=== PATIENT | female | born 1945 | race African-American/Black ===

== ENCOUNTER 2017-08-29 10:20 | Inpatient (IN) | payer MEDICARE ==
[~2017-08-29] VITALS: Ht 162.6 cm; Wt 101.9 kg
[~2017-08-29 10:20] MED LIST: ASPI81TA82 PO; CALC600T34 PO; ESTR42.5V PV; FISH1000 PO; LEVEMIR SQ; LISI-372 PO; NOVO7030P2 SQ; TOPR25TA2 PO; VITA10002 PO
[2017-08-29 10:41] VITALS: BP 181/87; PULSE 74; RESP 18; TEMP 99.6; O2SAT 97
[2017-08-29] MEDS ORDERED: LOSA100T PO (10:48)
[2017-08-29] MEDS ORDERED: NOVOLOGP2 SQ (10:48)
[2017-08-29] MEDS ORDERED: HYDR25TA5 PO (10:48)
[2017-08-29] MEDS ORDERED: LEVEMIR SQ (10:48)
[2017-08-29] MEDS ORDERED: CLON0.1T PO (10:48)
[2017-08-29] MEDS ORDERED: LISI40TA PO (10:48)
[2017-08-29] MEDS ORDERED: METO100T PO (10:48)
[2017-08-29 10:49] VITALS: RESP 16; O2SAT 97
[2017-08-29] MEDS ORDERED: SODIUM CHLORIDE 0.9% FLUSH 10 ML FLUSH IV FLUSH PRN ×2 (11:00→14:00)
[2017-08-29] MEDS ORDERED: MORPHINE SULFATE 4 MG/ML INJ IV PUSH ONE (11:00)
[2017-08-29] MEDS ORDERED: LIDOCAINE HCL 1% PF 30 ML VIAL INFIL ONE (11:00)
[2017-08-29] MEDS ORDERED: TIMO0.255 EACH EYE (11:33)
[2017-08-29] MEDS ORDERED: CALC0.25 PO (11:33)
[2017-08-29] MEDS ORDERED: AMLO10TA2 PO (11:33)
[2017-08-29] MEDS ORDERED: HYDR-3799 PO (11:33)
--- NOTE | 2017-08-29 11:33 | RADRPT ---
EXAM DATE/TIME: 08/29/2017 11:01 [facility] COMPARISON: No previous studies available for comparison. INDICATIONS : Pain without trauma. MEDICAL HISTORY : None. SURGICAL HISTORY : None. ENCOUNTER: Initial ACUITY: 1 day PAIN SCORE: 4/10 LOCATION: Left knee. FINDINGS: 4 views left knee. Moderate sized tricompartmental osteophytes. Alignment within normal limits. No ev idence of fracture. Mild lateral compartment narrowing. Large joint effusion. CONCLUSION: 1. Moderate severity osteoarthritic findings with mild lateral compartment narrowing. 2. Large joint effusion. 3. No fracture identified. Montana Meade MD on August 29, 2017 at 11:29 Board Certified Radiologist. This report was verified electronically.
[2017-08-29 11:48] LABS: AUTOMATED NEUTROPHIL # 9.8 TH/MM3 (1.8-7.7); BASOPHIL % 0.3 % (0.0-2.0); EOSINOPHIL # 0.1 TH/MM3 (0-0.4); EOSINOPHIL % 0.6 % (0.0-4.0); HEMATOCRIT 35.8 % (35.0-46.0); HEMOGLOBIN 11.6 GM/DL (11.6-15.3); LYMPHOCYTE # 0.9 TH/MM3 (1.0-4.8); MEAN CELL VOLUME 91.6 FL (80.0-100.0); MEAN CORPUSCULAR HEMOGLOBIN 29.6 PG (27.0-34.0); MEAN CORPUSCULAR HGB CONC 32.3 % (32.0-36.0); MEAN PLATELET VOLUME 8.4 FL (7.0-11.0); MONO % 4.7 % (0.0-8.0); MONOCYTE # 0.5 TH/MM3 (0-0.9); NEUT % 86.4 % (16.0-70.0); PLATELET COUNT 235 TH/MM3 (150-450); WHITE BLOOD COUNT 11.4 TH/MM3 (4.0-11.0)
[2017-08-29 12:07] LABS: ALBUMIN 3.2 GM/DL (3.4-5.0); AST (GOT) 18 U/L (15-37); BICARBONATE 26.3 MEQ/L (21.0-32.0); BLOOD UREA NITROGEN 73 MG/DL (7-18); CALCIUM 9.7 MG/DL (8.5-10.1); CHLORIDE 110 MEQ/L (98-107); CREATININE 4.25 MG/DL (0.50-1.00); GLOMERULAR FILTRATION RATE 12 ML/MIN (>89); GLUCOSE,RANDOM 151 MG/DL (74-106); LIPASE 177 U/L (73-393); SODIUM (NA) 145 MEQ/L (136-145)
[2017-08-29 12:08] LABS: ALT (GPT) 25 U/L (10-53)
[2017-08-29 12:12] LABS: ALKALINE PHOSPHATASE 77 U/L (45-117); TOTAL BILIRUBIN ADULT 0.3 MG/DL (0.2-1.0); TOTAL PROTEIN 7.3 GM/DL (6.4-8.2); TROPONIN I LESS THAN 0.02 NG/ML (0.02-0.05)
[2017-08-29] MEDS ORDERED: VANCOMYCIN INJ 1,500 MG in SODIUM CHLORID 0.9% 500 ML INJ 500 ML IV ONE (13:15)
--- NOTE | 2017-08-29 13:54 | PD ---
HPI Chief Complaint: Pain: Acute or Chronic Time Seen by Provider: 10:39 Travel History International Travel<30 days: No Contact w/Intl Traveler<30days: No Traveled to known affect area: No History of Present Illness HPI 71-year-old female pleasant well-nourished well-developed arrives with left knee pain having woke up with it. It's constant severe and worse with range of motion. No fever. No recent trauma. Timing constant. PFSH Past Medical History Cancer: Yes (left breast) Diabetes: Yes (IDDM) Patient Takes Glucophage: No Glaucoma: No Hepatitis: No Hiatal Hernia: No Hypertension: Yes Medical other: Yes (arthritis- BOTH KNEES) Thyroid Disease: No Past Surgical History Abdominal Surgery: No Cardiac Surgery: No Ear Surgery: No Endocrine Surgery: No Eye Surgery: No Genitourinary Surgery: No Gynecologic Surgery: Yes (hysterectomy-VAGINAL) Hysterectomy: Yes Pacemaker: No Thoracic Surgery: Yes (LEFT BREAST LUMPECTOMY SENTINEL NODE BX) Social History Alcohol Use: No Tobacco Use: No Substance Use: No Allergies-Medications (Allergen,Severity, Reaction): Coded Allergies: No Known Allergies (Unverified Allergy, Unknown, 08/29/17) Reported Meds & Prescriptions Reported Meds & Active Scripts Active Reported Amlodipine (Amlodipine Besylate) 10 Mg Tab 10 Mg PO DAILY Timoptic Opth Drops (Timolol Opth Drops) Unknown Strength Soln Unknown Dose EACH EYE BID Calcitriol 0.25 Mcg Cap 0.25 Mcg PO DAILY Hydralazine HCl 25 Mg Tablet 25 Mg PO BID Novolog Inj (Insulin Aspart) 1,000 Unit/10 Ml Vial 0 SQ DIRECTED Sliding Scale as directed. Levemir Inj (Insulin Detemir) 1,000 unit/ 10 ML Vial 80 Units SQ DAILY Do not mix with any other Insulin. Hydrochlorothiazide 25 Mg Tab 25 Mg PO DAILY Lisinopril 40 Mg Tab 40 Mg PO DAILY Clonidine (Clonidine HCl) 0.1 Mg Tab 0.1 Mg PO BID Losartan (Losartan Potassium) 100 Mg Tab 100 Mg PO DAILY Metoprolol Tartrate 100 Mg Tab 100 Mg PO BID Review of Systems Except as stated in HPI: all other systems reviewed are Neg Physical Exam Narrative GENERAL: 71 yo F, WNWD, mild distress from pain SKIN: Warm and dry. HEAD: Atraumatic. Normocephalic. EYES: Pupils equal and round. No scleral icterus. No injection or drainage. ENT: No nasal bleeding or discharge. Mucous membranes pink and moist. NECK: Trachea midline. No JVD. CARDIOVASCULAR: Regular rate and rhythm. RESPIRATORY: No accessory muscle use. Clear to auscultation. Breath sounds equal bilaterally. GASTROINTESTINAL: Abdomen soft, non-tender, nondistended. Hepatic and splenic margins not palpable. MUSCULOSKELETAL: Ballotment about the left knee with generalized swelling. Tenderness about the left knee. Range of motion limited by pain. NEUROLOGICAL: Awake and alert. No obvious cranial nerve deficits. Motor grossly within normal limits. Five out of 5 muscle strength in the arms and legs. Normal speech. PSYCHIATRIC: Appropriate mood and affect; insight and judgment normal. Data Data Last Documented VS Vital Signs Date Time Temp Pulse Resp B/P (MAP) Pulse Ox O2 Delivery O2 Flow Rate FiO2 08/29/17 10:49 16 97 Room Air 08/29/17 10:41 99.6 74 181/87 (118) Vital signs reviewed Orders Orders Electrocardiogram (08/29/17 ) Complete Blood Count With Diff (08/29/17 10:47) Comprehensive Metabolic Panel (08/29/17 10:47) Lipase (08/29/17 10:47) Urinalysis - C+S If Indicated (08/29/17 10:47) Iv Access Insert/Monitor (08/29/17 10:47) Ecg Monitoring (08/29/17 10:47) Oximetry (08/29/17 10:47) Sodium Chloride 0.9% Flush (Ns Flush) (08/29/17 11:00) Electrocardiogram (08/29/17 10:47) Troponin I (08/29/17 10:47) Creatine Kinase (Cpk) (08/29/17 10:47) Knee, Complete (4vws) (08/29/17 ) Fluid Culture And Gram Stain (08/29/17 10:52) Synovial Fl Cell Count + Diff (08/29/17 10:52) Synovial Fluid Crystals (08/29/17 10:52) Lidocaine Pf 1% Inj (Xylocaine-Mpf 1% In (08/29/17 11:00) Morphine Inj (Morphine Inj) (08/29/17 11:00) Vancomycin Inj (Vancomycin Inj) (08/29/17 13:15) Admit Order (Ed Use Only) (08/29/17 ) Vital Signs (Adult) Q4H (08/29/17 13:46) Activity Bed Rest (08/29/17 13:46) Labs Laboratory Tests Test 08/29/17 11:25 08/29/17 12:46 White Blood Count 11.4 TH/MM3 Red Blood Count 3.90 MIL/MM3 Hemoglobin 11.6 GM/DL Hematocrit 35.8 % Mean Corpuscular Volume 91.6 FL Mean Corpuscular Hemoglobin 29.6 PG Mean Corpuscular Hemoglobin Concent 32.3 % Red Cell Distribution Width 15.0 % Platelet Count 235 TH/MM3 Mean Platelet Volume 8.4 FL Neutrophils (%) (Auto) 86.4 % Lymphocytes (%) (Auto) 8.0 % Monocytes (%) (Auto) 4.7 % Eosinophils (%) (Auto) 0.6 % Basophils (%) (Auto) 0.3 % Neutrophils # (Auto) 9.8 TH/MM3 Lymphocytes # (Auto) 0.9 TH/MM3 Monocytes # (Auto) 0.5 TH/MM3 Eosinophils # (Auto) 0.1 TH/MM3 Basophils # (Auto) 0.0 TH/MM3 CBC Comment DIFF FINAL Differential Comment Blood Urea Nitrogen 73 MG/DL Creatinine 4.25 MG/DL Random Glucose 151 MG/DL Total Protein 7.3 GM/DL Albumin 3.2 GM/DL Calcium Level 9.7 MG/DL Alkaline Phosphatase 77 U/L Aspartate Amino Transf (AST/SGOT) 18 U/L Alanine Aminotransferase (ALT/SGPT) 25 U/L Total Bilirubin 0.3 MG/DL Sodium Level 145 MEQ/L Potassium Level 3.9 MEQ/L Chloride Level 110 MEQ/L Carbon Dioxide Level 26.3 MEQ/L Anion Gap 9 MEQ/L Estimat Glomerular Filtration Rate 12 ML/MIN Uric Acid 8.9 MG/DL Total Creatine Kinase 103 U/L Troponin I LESS THAN 0.02 NG/ML Lipase 177 U/L Synovial Fluid Color STRAW Synovial Fluid Appearance MODERATE Synovial Fluid WBC 40564 /MM3 Synovial Fluid RBC 140 /MM3 Synovial Fluid Neutrophils 91 % Synovial Fluid Lymphocytes 1 % Synovial Fluid Monocytes 7 % Synovial Fluid Synovial Lining Cell 1 % Synovial Fluid Crystals NONE MDM Medical Decision Making Medical Screen Exam Complete: Yes Emergency Medical Condition: Yes Medical Record Reviewed: Yes Differential Diagnosis Septic arthritis, pseudogout, metabolic disarray Narrative Course CBC & BMP Diagram 08/29/17 11:25 Total Protein 7.3, Albumin 3.2 L, Calcium Level 9.7, Alkaline Phosphatase 77, Aspartate Amino Transf (AST/SGOT) 18, Alanine Aminotransferase (ALT/SGPT) 25, Total Bilirubin 0.3 Troponin is less than 0.02 EKG: Rate 77, the patient has frequent PVCs otherwise sinus rhythm with T-wave inversion in the lateral precordial leads of indeterminate significance Last 24 hours Impressions Knee X-Ray 08/29/17 0000 Signed Impressions: Service Date/Time: Tuesday, August 29, 2017 11:01 - CONCLUSION: 1. Moderate severity osteoarthritic findings with mild lateral compartment narrowing. 2. Large joint effusion. 3. No fracture identified. Montana Meade MD Diagnosis Primary Impression: Knee effusion, left Admitting Information Admitting Physician Requests: Odin De La Paz MD Aug 29, 2017 13:54
[2017-08-29] MEDS ORDERED: ACETAMINOPHEN/HYDROcodone 325 MG/5 MG TAB PO PRN (14:00)
[2017-08-29] MEDS ORDERED: NALOXONE HCL 0.4 MG/ML AMP IV PUSH PRN (14:00)
[2017-08-29 14:13] LABS: WBC, SYNOVIAL FLUID 19600 /MM3 (0-200)
[2017-08-29] MEDS ORDERED: GLUCAGON 1 MG/ML VIAL OTHER PRN (14:15)
[2017-08-29] MEDS ORDERED: DEXTROSE 50% IN WATER 50 ML VIAL(D50) IV PUSH PRN (14:15)
--- NOTE | 2017-08-29 14:37 | RADRPT ---
EXAM DATE/TIME: 08/29/2017 14:11 [facility] COMPARISON: No previous studies available for comparison. INDICATIONS : Shortness of breath. MEDICAL HISTORY : Carcinoma, left breast. SURGICAL HISTORY : Infusaport. ENCOUNTER: Initial ACUITY: 1 day PAIN SCORE: 0/10 LOCATION: Bilateral chest FINDINGS: A single view of the chest demonstrates the lungs to be symmetrically aerated without evidence of mas s, infiltrate or effusion. The heart size is at the upper limits of normal with no perihilar edema. Osseous structures are intact. There are multiple overlying electrocardiogram leads. CONCLUSION: No acute disease. Vineet Penaloza MD on August 29, 2017 at 14:34 Board Certified Radiologist. This report was verified electronically.
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
--- NOTE | 2017-08-29 15:44 | PD.CONS ---
[facility] Service Nephrology Consult Requested By Reason for Consult Acute on chronic kidney disease Primary Care Physician Simon Osorio M.D. History of Present Illness Ms. Henry is a 71 year old lady with history of diabetes, CKD 5, hypertension and atrial fibrillation. She presented to the hospital with left knee pain, swelling, inability to stand because of knee pain and some degree of confusion. On presentation, her creatinine was 4.25 with GFR of 12. No hyperkalemia. Patient's previous labs were reviewed with her daughter. In April her GFR was 15. In June her GFR was 13. She has nephrotic proteinuria. Serologies including complement levels, SPEP were unremarkable. She follows with Dr. Bangura. Patient has mild leukocytosis. Seen by Orthopedic surgery. Underwent arthrocentesis. Patient denies use of NSAIDs other than Tylenol. Denies fever. No nausea/vomiting. Review of Systems Constitutional: COMPLAINS OF: Fatigue Cardiovascular: DENIES: Chest pain, Palpitations, Syncope Gastrointestinal: DENIES: Abdominal pain, Black stools Musculoskeletal: COMPLAINS OF: Joint pain Psychiatric: DENIES: Anxiety, Confusion Past Family Social History Allergies: Coded Allergies: No Known Allergies (Unverified Allergy, Unknown, 08/29/17) Past Medical History Type 2 diabetes mellitus Hypertension CKD stage 5 Atrial fibrillation Reported Medications Amlodipine (Amlodipine Besylate) 10 Mg Tab 10 Mg PO DAILY Timoptic Opth Drops (Timolol Opth Drops) Unknown Strength Soln Unknown Dose EACH EYE BID Calcitriol 0.25 Mcg Cap 0.25 Mcg PO DAILY Hydralazine HCl 25 Mg Tablet 25 Mg PO BID Novolog Inj (Insulin Aspart) 1,000 Unit/10 Ml Vial 0 SQ DIRECTED Sliding Scale as directed. Levemir Inj (Insulin Detemir) 1,000 unit/ 10 ML Vial 80 Units SQ DAILY Do not mix with any other Insulin. Hydrochlorothiazide 25 Mg Tab 25 Mg PO DAILY Lisinopril 40 Mg Tab 40 Mg PO DAILY Clonidine (Clonidine HCl) 0.1 Mg Tab 0.1 Mg PO BID Losartan (Losartan Potassium) 100 Mg Tab 100 Mg PO DAILY Metoprolol Tartrate 100 Mg Tab 100 Mg PO BID Active Ordered Medications Current Medications Medications (Trade) Dose Ordered Sig/Alexandrea Route Start Time Stop Time Status Last Admin (NS Flush) 2 ml UNSCH PRN IV FLUSH 08/29/17 14:00 (NS Flush) 2 ml BID IV FLUSH 08/29/17 21:00 (Tylenol) 650 mg Q4H PRN PO 08/29/17 14:00 (Zofran Inj) 4 mg Q6H PRN IVP 08/29/17 14:00 (Narcan Inj) 0.4 mg UNSCH PRN IV PUSH 08/29/17 14:00 (NovoLOG SUPPLEMENTAL SCALE) 1 ACHS SLIDING SCALE SQ 08/29/17 17:00 (Aurora 5-325 Mg) 1 tab Q6H PRN PO 08/29/17 14:00 (Dilaudid Pf Inj) 0.5 mg Q6H PRN IV PUSH 08/29/17 14:00 (D50w (Vial) Inj) 50 ml UNSCH PRN IV PUSH 08/29/17 14:15 (Glucagon Inj) 1 mg UNSCH PRN OTHER 08/29/17 14:15 Family History Strong family history of diabetes: brother, mother and sister. Brother who has diabetes is on dialysis. Social History Lives in [facility], no tobacco or ETOH Physical Exam Vital Signs Vital Signs Date Time Temp Pulse Resp B/P (MAP) Pulse Ox O2 Delivery O2 Flow Rate FiO2 08/29/17 10:49 16 97 Room Air 08/29/17 10:41 99.6 74 18 181/87 (118) 97 Physical Exam GENERAL: lethargic, complaining of pain in the left knee. Obese. SKIN: Warm and dry. HEAD: Normocephalic. EYES: No scleral icterus. No injection or drainage. NECK: Supple, trachea midline. No JVD or lymphadenopathy. CARDIOVASCULAR: Regular rate and rhythm without murmurs, gallops, or rubs. RESPIRATORY: Breath sounds equal bilaterally. No accessory muscle use. GASTROINTESTINAL: Abdomen soft, non-tender, nondistended. Obese. MUSCULOSKELETAL: trace dependent edema. Left knee is inflamed, swollen, tender to touch. Laboratory Laboratory Tests Test 08/29/17 11:25 08/29/17 12:46 White Blood Count 11.4 Red Blood Count 3.90 Hemoglobin 11.6 Hematocrit 35.8 Mean Corpuscular Volume 91.6 Mean Corpuscular Hemoglobin 29.6 Mean Corpuscular Hemoglobin Concent 32.3 Red Cell Distribution Width 15.0 Platelet Count 235 Mean Platelet Volume 8.4 Neutrophils (%) (Auto) 86.4 Lymphocytes (%) (Auto) 8.0 Monocytes (%) (Auto) 4.7 Eosinophils (%) (Auto) 0.6 Basophils (%) (Auto) 0.3 Neutrophils # (Auto) 9.8 Lymphocytes # (Auto) 0.9 Monocytes # (Auto) 0.5 Eosinophils # (Auto) 0.1 Basophils # (Auto) 0.0 CBC Comment DIFF FINAL Differential Comment Blood Urea Nitrogen 73 Creatinine 4.25 Random Glucose 151 Total Protein 7.3 Albumin 3.2 Calcium Level 9.7 Alkaline Phosphatase 77 Aspartate Amino Transf (AST/SGOT) 18 Alanine Aminotransferase (ALT/SGPT) 25 Total Bilirubin 0.3 Sodium Level 145 Potassium Level 3.9 Chloride Level 110 Carbon Dioxide Level 26.3 Anion Gap 9 Estimat Glomerular Filtration Rate 12 Total Creatine Kinase 103 Troponin I LESS THAN 0.02 Lipase 177 Synovial Fluid Color STRAW Synovial Fluid Appearance MODERATE Synovial Fluid WBC 03782 Synovial Fluid RBC 140 Synovial Fluid Neutrophils 91 Synovial Fluid Lymphocytes 1 Synovial Fluid Monocytes 7 Synovial Fluid Synovial Lining Cell 1 Synovial Fluid Crystals NONE Date/Time Source Procedure Growth Status 08/29/17 12:46 Fluid Synovial Fluid Gram Stain - Final Resulted 08/29/17 12:46 Fluid Synovial Fluid Body Fluid Culture Pending Resulted Result Diagram: 08/29/17 1125 08/29/17 1125 Assessment and Plan Problem List: (1) Chronic kidney disease, stage 5 ICD Codes: N18.5 - Chronic kidney disease, stage 5 Plan: renal function is close to her baseline. She is nearing the need for dialysis. Avoid nephrotoxic agents. Avoid Gadolinium. Monitor potassium, other electrolytes, acid base status. No immediate need for dialysis. Cautious IVF: I will change IVF to 1/2NS. If oral intake is adequate, stop IVF in AM. (2) Type 2 diabetes mellitus with diabetic chronic kidney disease ICD Codes: E11.22 - Type 2 diabetes mellitus with diabetic chronic kidney disease Plan: insulin coverage, maintain blood glucose between 140 and 180 (3) HTN (hypertension) ICD Codes: I10 - Essential (primary) hypertension Plan: Restart home medications. BP is high. She is on clonidine, Losartan, Lisinopril, Hydralazine, Metoprolol and HCTZ. I would advise against combined use of RACHELE inhibitor and ARB. Also consider stopping HCTZ if uric acid is high. (4) Knee effusion, left ICD Codes: M25.462 - Effusion, left knee Status: Acute Plan: s/p arthrocentesis. Seen by ortho. Could be pseudogout or gout. Obtain serum uric acid level. Assessment and Plan Thanks for the consult. Dr. Bangura will follow from tomorrow. Carlos Rees MD Aug 29, 2017 15:44
--- NOTE | 2017-08-29 16:23 | HHI.HP ---
HPI Service [facility] Hospitalists Primary Care Physician Simon Osorio M.D. Admission Diagnosis L Knee Effusion/Arthritis; Inability To Ambulate Chief Complaint: Left knee pain Travel History International Travel<30 Days: No Contact w/Intl Traveler <30 Da: No Traveled to Known Affected Are: No History of Present Illness Mrs. Henry is a 71 y/o female with IDDM, HTN, osteoarthritis, and hx of breast cancer who presented to the ED at [facility] on 08/29/17 with complaints of severe left knee pain and swelling. She reportedly got locked out of her car yesterday and had to stand outside for approximately 2 hours waiting for help. Last night she woke up during the night with severe left knee pain and was unable to bear weight on it due to the pain and swelling. She denies any fever or chills. No reported trauma to the knees. Labs in the ED noted WBC count 11.4 , Cr 4.25/BUN 73, GFR 12. Knee Xray noted moderate severity osteoarthritis with mild lateral compartment narrowing and large joint effusion. The knee was aspirated in the ED and synovial fluid noted WBC count 19,600. Fluid was sent for culture. She was given pain medication in the ED and a dose of Vancomycin was ordered. Pt denies any chest pain, SOB, palpitations, dizziness, abd pain, nausea/vomiting. Review of Systems Constitutional: DENIES: Fever, Chills Eyes: DENIES: Vision loss Ears, nose, mouth, throat: DENIES: Hearing loss Respiratory: DENIES: Cough, Shortness of breath Cardiovascular: DENIES: Chest pain Gastrointestinal: DENIES: Abdominal pain, Diarrhea, Nausea, Vomiting Musculoskeletal: COMPLAINS OF: Joint pain, Joint Swelling Integumentary: DENIES: Rash Neurologic: DENIES: Headache Psychiatric: DENIES: Confusion Past Family Social History Past Medical History Left breast cancer s/p lumpectomy and XRT/chemo LUE lymphedema HTN Diabetes mellitus, Hgb A1C 6.3% in 06/2017 CKD, stage 4, last labs from 07/12/17 with Cr 3.75/BUN 18, GFR 11 Obesity Osteoarthritis Past Surgical History Hysterectomy in 1977 Left breast lumpectomy in 2008 Reported Medications -Timoptic Opth Drops (Timolol Opth Drops) Unknown Strength Soln Unknown Dose EACH EYE BID -Novolog Inj (Insulin Aspart) 1,000 Unit/10 Ml Vial 0 SQ DIRECTED -Levemir Inj (Insulin Detemir) 80 Units SQ DAILY -Hydrochlorothiazide 25 Mg PO DAILY -Lisinopril 40 Mg PO DAILY -Clonidine 0.1 Mg PO BID -Losartan 100 Mg PO DAILY -Metoprolol Tartrate 100 Mg PO BID ?Levothyroxine 125Mcg PO DAILY ?Calcitriol 0.25 Mcg Cap 0.25 Mcg PO DAILY ?Hydralazine HCl 25 Mg PO BID ?Amlodipine 10 Mg PO DAILY ?KCL 10Meq PO DAILY Allergies: Coded Allergies: No Known Allergies (Unverified Allergy, Unknown, 08/29/17) Family History Father from [facility] Social History Denies any alcohol, tobacco or illicit drug use Physical Exam Vital Signs Vital Signs Date Time Temp Pulse Resp B/P (MAP) Pulse Ox O2 Delivery O2 Flow Rate FiO2 08/29/17 10:49 16 97 Room Air 08/29/17 10:41 99.6 74 18 181/87 (118) 97 Physical Exam GENERAL: This is a well-nourished, well-developed patient, in no apparent distress. SKIN: No rashes, ecchymoses or lesions. Cool and dry. HEENT: Atraumatic. Normocephalic. No temporal or scalp tenderness. No scleral icterus. Airway patent. NECK: Trachea midline, supple. CARDIO: Regular. RESP: CTA bilaterally. No wheezes, rales, or rhonchi. ABD: +BS, soft, non-tender, nondistended. EXT: Left knee swollen and tender, no significant erythema. Limited ROM due to pain NEURO: Awake and alert. Motor and sensory grossly within normal limits. Normal speech. Laboratory Laboratory Tests Test 08/29/17 11:25 08/29/17 12:46 White Blood Count 11.4 Red Blood Count 3.90 Hemoglobin 11.6 Hematocrit 35.8 Mean Corpuscular Volume 91.6 Mean Corpuscular Hemoglobin 29.6 Mean Corpuscular Hemoglobin Concent 32.3 Red Cell Distribution Width 15.0 Platelet Count 235 Mean Platelet Volume 8.4 Neutrophils (%) (Auto) 86.4 Lymphocytes (%) (Auto) 8.0 Monocytes (%) (Auto) 4.7 Eosinophils (%) (Auto) 0.6 Basophils (%) (Auto) 0.3 Neutrophils # (Auto) 9.8 Lymphocytes # (Auto) 0.9 Monocytes # (Auto) 0.5 Eosinophils # (Auto) 0.1 Basophils # (Auto) 0.0 CBC Comment DIFF FINAL Differential Comment Blood Urea Nitrogen 73 Creatinine 4.25 Random Glucose 151 Total Protein 7.3 Albumin 3.2 Calcium Level 9.7 Alkaline Phosphatase 77 Aspartate Amino Transf (AST/SGOT) 18 Alanine Aminotransferase (ALT/SGPT) 25 Total Bilirubin 0.3 Sodium Level 145 Potassium Level 3.9 Chloride Level 110 Carbon Dioxide Level 26.3 Anion Gap 9 Estimat Glomerular Filtration Rate 12 Total Creatine Kinase 103 Troponin I LESS THAN 0.02 Lipase 177 Synovial Fluid Color STRAW Synovial Fluid Appearance MODERATE Synovial Fluid WBC 75537 Synovial Fluid RBC 140 Synovial Fluid Neutrophils 91 Synovial Fluid Lymphocytes 1 Synovial Fluid Monocytes 7 Synovial Fluid Synovial Lining Cell 1 Synovial Fluid Crystals NONE Date/Time Source Procedure Growth Status 08/29/17 12:46 Fluid Synovial Fluid Gram Stain - Final Resulted 08/29/17 12:46 Fluid Synovial Fluid Body Fluid Culture Pending Resulted Result Diagram: 08/29/17 1125 08/29/17 1125 Imaging Last Impressions Chest X-Ray 08/29/17 1350 Signed Impressions: Service Date/Time: Tuesday, August 29, 2017 14:11 - CONCLUSION: No acute disease. Vineet Penaloza MD Knee X-Ray 08/29/17 0000 Signed Impressions: Service Date/Time: Tuesday, August 29, 2017 11:01 - CONCLUSION: 1. Moderate severity osteoarthritic findings with mild lateral compartment narrowing. 2. Large joint effusion. 3. No fracture identified. Montana Meade MD Capsonui VTE Risk Assessment Caprini VTE Risk Assessment: Mod/High Risk (score >= 2) Caprini Risk Assessment Model Point Value = 1 Point Value = 2 Point Value = 3 Point Value = 5 Age 41-60 Minor surgery BMI > 25 kg/m2 Swollen legs Varicose veins or History of unexplained or recurrent spontaneous Oral contraceptives or hormone replacement Sepsis (< 1 month) Serious lung disease, including pneumonia (< 1 month) Abnormal pulmonary function Acute myocardial infarction Congestive heart failure (< 1 month) History of inflammatory bowel disease Medical patient at bed rest Age 61-74 Arthroscopic surgery Major open surgery (> 45 min) Laparoscopic surgery (> 45 min) Malignancy Confined to bed (> 72 hours) Immobilizing plaster cast Central venous access Age >= 75 History of VTE Family history of VTE Factor V Leiden Prothrombin [id number] Lupus anticoagulant Anticardiolipin antibodies Elevated serum homocysteine Heparin-induced thrombocytopenia Other congenital or acquired thrombophilia Stroke (< 1 month) Elective arthroplasty Hip, pelvis, or leg fracture Acute spinal cord injury (< 1 month) Prophylaxis Regimen Total Risk Factor Score Risk Level Prophylaxis Regimen 0-1 Low Early ambulation 2 Moderate Order ONE of the following: *Sequential Compression Device (SCD) *Heparin 5000 units SQ BID 3-4 Higher Order ONE of the following medications: *Heparin 5000 units SQ TID *Enoxaparin/Lovenox 40 mg SQ daily (WT < 150 kg, CrCl > 30 mL/min) *Enoxaparin/Lovenox 30 mg SQ daily (WT < 150 kg, CrCl > 10-29 mL/min) *Enoxaparin/Lovenox 30 mg SQ BID (WT < 150 kg, CrCl > 30 mL/min) AND/OR *Sequential Compression Device (SCD) 5 or more Highest Order ONE of the following medications: *Heparin 5000 units SQ TID (Preferred with Epidurals) *Enoxaparin/Lovenox 40 mg SQ daily (WT < 150 kg, CrCl > 30 mL/min) *Enoxaparin/Lovenox 30 mg SQ daily (WT < 150 kg, CrCl > 10-29 mL/min) *Enoxaparin/Lovenox 30 mg SQ BID (WT < 150 kg, CrCl > 30 mL/min) AND *Sequential Compression Device (SCD) Assessment and Plan Problem List: (1) Knee effusion, left ICD Codes: M25.462 - Effusion, left knee Status: Acute Plan: - Pt is a 71 y/o female with IDDM, HTN, osteoarthritis, and hx of breast cancer who presented to the ED at [facility] on 08/29/17 with complaints of severe left knee pain and swelling. - She reportedly got locked out of her car yesterday and had to stand outside for approximately 2 hours waiting for help. Last night she woke up during the night with severe left knee pain and was unable to bear weight on it due to the pain and swelling. - No fever or chills. No reported trauma. - Labs in the ED noted WBC count 11.4, Cr 4.25/BUN 73, GFR 12. - Knee Xray noted moderate severity osteoarthritis with mild lateral compartment narrowing and large joint effusion. - The knee was aspirated in the ED and synovial fluid noted WBC count 19,600. Fluid was sent for culture. - She was given pain medication in the ED and a dose of Vancomycin was ordered. - Orthopedic surgery is consulted - Heating pad ordered - Elevation - Pain control PRN - Await fluid culture - Supportive care - PT evaluation, pt may need rehab placement at the end of this hospitalization (2) Acute renal failure superimposed on stage 4 chronic kidney disease ICD Codes: N17.9 - Acute kidney failure, unspecified; N18.4 - Chronic kidney disease, stage 4 (severe) Plan: - Pt with CKD, stage 4, last labs from 07/12/17 with Cr 3.75/BUN 18, GFR 11 - Labs at admission with Cr 4.25.BUN 73 and GFR 12 - Nephrology has been consulted - Pt may have a degree of dehydration causing this elevation in her labs - We will give IVF (3) HTN (hypertension) ICD Codes: I10 - Essential (primary) hypertension Plan: - Pts home medications to be clarified and resumed - Monitor (4) Diabetes mellitus ICD Codes: E11.9 - Type 2 diabetes mellitus without complications Status: Chronic Plan: - NovoLog SSI - Accu checks Assessment and Plan Patient examined. Assessment and plan formulated with Charito Macdonald PA-C. I agree with the above. Physician Certification 2 Midnight Certification Type: Admission for Inpatient Services Order for Inpatient Services The services are ordered in accordance with Medicare regulations or non- Medicare payer requirements, as applicable. In the case of services not specified as inpatient-only, they are appropriately provided as inpatient services in accordance with the 2-midnight benchmark. Estimated LOS (days): 2 2 days is the estimated time the patient will need to remain in the hospital, assuming treatment plan goals are met and no additional complications. Post-Hospital Plan: Not yet determined Problem Qualifiers (1) Diabetes mellitus: Charito Macdonald Aug 29, 2017 16:23 Jarod Dickerson DO Aug 31, 2017 00:26
[2017-08-29] MEDS: INSULIN ASPART SUPPLEMENTAL SCALE SQ SCH ×2 (16:24→20:37)
[2017-08-29] MEDS ORDERED: SODIUM CHLOR 0.9% 1000 ML INJ 1,000 ML IV SCH (16:45)
[2017-08-29] MEDS: SODIUM CHLOR 0.45% 1000 ML INJ 1,000 ML IV SCH (17:42)
[2017-08-29] MEDS: ACETAMINOPHEN/HYDROcodone 325 MG/10 MG TAB PO PRN ×2 (19:06→22:28)
[2017-08-29] MEDS: METOPROLOL TARTRATE 100 MG TAB PO SCH (20:27)
[2017-08-29] MEDS: hydrALAZINE HCL 25 MG TAB PO SCH (20:27)
[2017-08-29] MEDS: SODIUM CHLORIDE 0.9% FLUSH 10 ML FLUSH IV FLUSH SCH (20:27)
[2017-08-29] MEDS: cloNIDine HCL 0.1 MG TAB PO SCH (20:27)
[2017-08-29 20:45] VITALS: BP 175/70; PULSE 78; RESP 18; TEMP 99.8; O2SAT 96
[2017-08-30 00:05] VITALS: BP 155/75; PULSE 69; RESP 18; TEMP 99.9; O2SAT 97
[2017-08-30] MEDS: ACETAMINOPHEN/HYDROcodone 325 MG/10 MG TAB PO PRN ×4 (02:15→14:11)
[2017-08-30] MEDS: HYDROmorphone HCL PF 2 MG/ML VIAL IV PUSH PRN (04:13)
[2017-08-30 04:28] VITALS: BP 179/77; PULSE 76; RESP 18; TEMP 98.8; O2SAT 97
[2017-08-30 06:07] LABS: AUTOMATED NEUTROPHIL # 9.8 TH/MM3 (1.8-7.7); BASOPHIL % 0.2 % (0.0-2.0); HEMATOCRIT 31.4 % (35.0-46.0); HEMOGLOBIN 10.3 GM/DL (11.6-15.3); LYMPH % 9.5 % (9.0-44.0); LYMPHOCYTE # 1.1 TH/MM3 (1.0-4.8); MEAN CELL VOLUME 90.9 FL (80.0-100.0); MEAN CORPUSCULAR HEMOGLOBIN 29.9 PG (27.0-34.0); MEAN CORPUSCULAR HGB CONC 32.9 % (32.0-36.0); MEAN PLATELET VOLUME 8.9 FL (7.0-11.0); MONO % 8.9 % (0.0-8.0); MONOCYTE # 1.1 TH/MM3 (0-0.9); NEUT % 81.4 % (16.0-70.0); PLATELET COUNT 223 TH/MM3 (150-450); RED BLOOD COUNT 3.46 MIL/MM3 (4.00-5.30); RED CELL DISTRIBUTION WIDTH 14.8 % (11.6-17.2)
[2017-08-30 06:27] LABS: BICARBONATE 23.9 MEQ/L (21.0-32.0); CALCIUM 9.2 MG/DL (8.5-10.1); CREATININE 4.07 MG/DL (0.50-1.00)
[2017-08-30 07:55] VITALS: PULSE 68
[2017-08-30 08:00] VITALS: BP_SYST 125; BP_SYST 164; BP_DIAS 69; BP_DIAS 70; PULSE 61; PULSE 66; RESP 15; RESP 17; TEMP 100.7; TEMP 99.5; O2SAT 94; O2SAT 95
[2017-08-30] MEDS: INSULIN ASPART SUPPLEMENTAL SCALE SQ SCH ×4 (08:00→20:36)
[2017-08-30] MEDS: SODIUM CHLORIDE 0.9% FLUSH 10 ML FLUSH IV FLUSH SCH ×2 (08:03→20:36)
[2017-08-30] MEDS: METOPROLOL TARTRATE 100 MG TAB PO SCH ×2 (08:04→20:36)
[2017-08-30] MEDS: hydrALAZINE HCL 25 MG TAB PO SCH ×2 (08:04→20:36)
[2017-08-30] MEDS: cloNIDine HCL 0.1 MG TAB PO SCH ×2 (08:04→20:36)
[2017-08-30] MEDS: ONDANSETRON HCL 4 MG/2 ML VIAL IVP PRN (09:59)
[2017-08-30 11:10] VITALS: BP 157/74; PULSE 67; RESP 18; TEMP 99.4; O2SAT 96
--- NOTE | 2017-08-30 15:02 | EKG ---
Date Performed: 08/29/2017 Time Performed: 16:44:00 PTAGE: 71 years EKG: Sinus rhythm Since previous tracing, no significant change noted NORMAL ECG PREVIOUS TRACING : 08/29/2017 10.42 DOCTOR: Baldemar Hayes Interpretating Date/Time 08/30/2017 15:00:35
--- NOTE | 2017-08-30 15:03 | EKG ---
Date Performed: 08/29/2017 Time Performed: 10:42:41 PTAGE: 71 years EKG: Sinus rhythm WITH OCCASIONAL VENTRICULAR PREMATURE COMPLEXES Since previous tracing, no significant change noted BORDERLINE ECG PREVIOUS TRACING : 05/31/2009 10.01 DOCTOR: Baldemar Hayes Interpretating Date/Time 08/30/2017 15:01:02
[2017-08-30] MEDS: SODIUM CHLOR 0.45% 1000 ML INJ 1,000 ML IV SCH (15:24)
[2017-08-30 15:31] VITALS: BP 133/73; PULSE 63; RESP 17; TEMP 98.2; O2SAT 95
--- NOTE | 2017-08-30 17:29 | HHI.PR ---
Subjective Remarks Pt sitting up n the chair Pt still with significant pain in the left knee and has not been moving it much Tmax 99.9 overnight Objective Vitals Vital Signs Date Time Temp Pulse Resp B/P (MAP) Pulse Ox O2 Delivery O2 Flow Rate FiO2 08/30/17 15:31 98.2 63 17 133/73 (93) 95 08/30/17 11:10 99.4 67 18 157/74 (101) 96 08/30/17 08:00 99.5 66 17 164/69 (100) 95 08/30/17 07:55 68 08/30/17 04:28 98.8 76 18 179/77 (111) 97 08/30/17 00:05 99.9 69 18 155/75 (101) 97 08/29/17 20:45 99.8 78 18 175/70 (105) 96 08/30/17 08/30/17 08/31/17 15:00 23:00 07:00 Intake Total 1444 ml Balance 1444 ml IV Total 1444 ml Result Diagram: 08/30/17 0532 08/30/17 0532 Other Results Laboratory Tests Test 08/29/17 11:25 08/29/17 12:46 08/30/17 05:32 White Blood Count 11.4 TH/MM3 12.0 TH/MM3 Red Blood Count 3.90 MIL/MM3 3.46 MIL/MM3 Hemoglobin 11.6 GM/DL 10.3 GM/DL Hematocrit 35.8 % 31.4 % Mean Corpuscular Volume 91.6 FL 90.9 FL Mean Corpuscular Hemoglobin 29.6 PG 29.9 PG Mean Corpuscular Hemoglobin Concent 32.3 % 32.9 % Red Cell Distribution Width 15.0 % 14.8 % Platelet Count 235 TH/MM3 223 TH/MM3 Mean Platelet Volume 8.4 FL 8.9 FL Neutrophils (%) (Auto) 86.4 % 81.4 % Lymphocytes (%) (Auto) 8.0 % 9.5 % Monocytes (%) (Auto) 4.7 % 8.9 % Eosinophils (%) (Auto) 0.6 % 0.0 % Basophils (%) (Auto) 0.3 % 0.2 % Neutrophils # (Auto) 9.8 TH/MM3 9.8 TH/MM3 Lymphocytes # (Auto) 0.9 TH/MM3 1.1 TH/MM3 Monocytes # (Auto) 0.5 TH/MM3 1.1 TH/MM3 Eosinophils # (Auto) 0.1 TH/MM3 0.0 TH/MM3 Basophils # (Auto) 0.0 TH/MM3 0.0 TH/MM3 CBC Comment DIFF FINAL DIFF FINAL Differential Comment Blood Urea Nitrogen 73 MG/DL 69 MG/DL Creatinine 4.25 MG/DL 4.07 MG/DL Random Glucose 151 MG/DL 137 MG/DL Total Protein 7.3 GM/DL Albumin 3.2 GM/DL Calcium Level 9.7 MG/DL 9.2 MG/DL Alkaline Phosphatase 77 U/L Aspartate Amino Transf (AST/SGOT) 18 U/L Alanine Aminotransferase (ALT/SGPT) 25 U/L Total Bilirubin 0.3 MG/DL Sodium Level 145 MEQ/L 144 MEQ/L Potassium Level 3.9 MEQ/L 3.8 MEQ/L Chloride Level 110 MEQ/L 110 MEQ/L Carbon Dioxide Level 26.3 MEQ/L 23.9 MEQ/L Anion Gap 9 MEQ/L 10 MEQ/L Estimat Glomerular Filtration Rate 12 ML/MIN 13 ML/MIN Uric Acid 8.9 MG/DL Total Creatine Kinase 103 U/L Troponin I LESS THAN 0.02 NG/ML Lipase 177 U/L Synovial Fluid Color STRAW Synovial Fluid Appearance MODERATE Synovial Fluid WBC 77361 /MM3 Synovial Fluid RBC 140 /MM3 Synovial Fluid Neutrophils 91 % Synovial Fluid Lymphocytes 1 % Synovial Fluid Monocytes 7 % Synovial Fluid Synovial Lining Cell 1 % Synovial Fluid Crystals NONE Imaging Last Impressions Chest X-Ray 08/29/17 1350 Signed Impressions: Service Date/Time: Tuesday, August 29, 2017 14:11 - CONCLUSION: No acute disease. Vineet Penaloza MD Knee X-Ray 08/29/17 0000 Signed Impressions: Service Date/Time: Tuesday, August 29, 2017 11:01 - CONCLUSION: 1. Moderate severity osteoarthritic findings with mild lateral compartment narrowing. 2. Large joint effusion. 3. No fracture identified. Montana Meade MD Objective Remarks General: NAD, AAOx3 Chest: CTA Cardiac: Regular Abd: +BS, soft ND/NT Ext: Left knee swollen and tender, no significant erythema. Limited ROM due to pain A/P Problem List: (1) Knee effusion, left ICD Codes: M25.462 - Effusion, left knee Status: Acute Plan: - Pt is a 71 y/o female with IDDM, HTN, osteoarthritis, and hx of breast cancer who presented to the ED at [facility] on 08/29/17 with complaints of severe left knee pain and swelling. - She reportedly got locked out of her car yesterday and had to stand outside for approximately 2 hours waiting for help. Last night she woke up during the night with severe left knee pain and was unable to bear weight on it due to the pain and swelling. - No fever or chills. No reported trauma. - Labs in the ED noted WBC count 11.4, Cr 4.25/BUN 73, GFR 12. - Knee Xray noted moderate severity osteoarthritis with mild lateral compartment narrowing and large joint effusion. - The knee was aspirated in the ED and synovial fluid noted WBC count 19,600. - Fluid culture is growing Strep Sp. - She was given pain medication in the ED and Vancomycin. - Orthopedic surgery is following - Heating pad ordered - Pain control PRN, Change Lortab to Roxicodone 15mg Q6H PRN - Consult ID for antibiotic recommendations in the setting of A/CKD, stage 4 - Supportive care - PT following and pt recommended rehab placement at the end of this hospitalization (2) Acute renal failure superimposed on stage 4 chronic kidney disease ICD Codes: N17.9 - Acute kidney failure, unspecified; N18.4 - Chronic kidney disease, stage 4 (severe) Plan: - Pt with CKD, stage 4, last labs from 07/12/17 with Cr 3.75/BUN 18, GFR 11 - Labs at admission with Cr 4.25.BUN 73 and GFR 12 - Nephrology is following - Pt may have a degree of dehydration causing this elevation in her labs - Repeat labs today with Cr 4.07/BUN 69, GFR 13 - Monitor labs closely (3) HTN (hypertension) ICD Codes: I10 - Essential (primary) hypertension Plan: - Pt was resumed, on Hydralaziner, Norvasc, Metoprolol, and Clonidine - Lisinopril, Losartan, and HCTZ were held - Monitor - Clonidine PRN (4) Diabetes mellitus ICD Codes: E11.9 - Type 2 diabetes mellitus without complications Status: Chronic Plan: - NovoLog SSI - Accu checks Assessment and Plan Patient examined. Assessment and plan formulated with Charito Macdonald PA-C. I agree with the above. synovial cultures --> strep virodans Pt to undergo I&D of left knee (08/31) with Dr. Reddy Pt received IV vancomycin in ER (08/29) Pt with [facility] Infectious Disease to consult Problem Qualifiers (1) Diabetes mellitus: Charito Macdonald Aug 30, 2017 17:29 Jarod Dickerson DO Aug 30, 2017 22:37
--- NOTE | 2017-08-30 19:08 | PD.ORT.PN ---
Subjective Subjective Remarks Patient appears confused and distressed. Significant left knee pain with direct palpation or movement. Family at bedside Objective Vitals Vital Signs Date Time Temp Pulse Resp B/P (MAP) Pulse Ox O2 Delivery O2 Flow Rate FiO2 08/30/17 15:31 98.2 63 17 133/73 (93) 95 08/30/17 11:10 99.4 67 18 157/74 (101) 96 08/30/17 08:00 99.5 66 17 164/69 (100) 95 08/30/17 07:55 68 08/30/17 04:28 98.8 76 18 179/77 (111) 97 08/30/17 00:05 99.9 69 18 155/75 (101) 97 08/29/17 20:45 99.8 78 18 175/70 (105) 96 I/O 08/29/17 08/29/17 08/29/17 08/30/17 08/30/17 08/30/17 07:00 15:00 23:00 07:00 15:00 23:00 Intake Total 360 ml 120 ml 1444 ml Output Total 450 ml 450 ml Balance -90 ml -330 ml 1444 ml Intake Oral 360 ml 120 ml IV Total 1444 ml Output Urine Total 450 ml 450 ml # Bowel Movements 0 0 Result Diagram: 08/30/17 0532 08/30/17 0532 Objective Remarks Left knee skin intact effusion no erythema pain with movement or palpation +sensation Assessment & Plan Problem List: (1) Dehydration with hypernatremia ICD Codes: E87.0 - Hyperosmolality and hypernatremia (2) Pseudogout of knee ICD Codes: M11.269 - Other chondrocalcinosis, unspecified knee (3) Knee effusion, left ICD Codes: M25.462 - Effusion, left knee Status: Acute Assessment and Plan Synovial fluid cx grew out streptococcus Anticipating surgical intervention tomorrow by Dr. Reddy. Irrigation and debridement of left knee. NPO after midnight Family is in agreement to move forward with surgery. Monitor Amos Cardozo Aug 30, 2017 19:08
[2017-08-30] MEDS: ACETAMINOPHEN 325 MG TAB PO PRN (23:39)
[2017-08-31] VITALS (8 sets, daily range): BP systolic 135–181; BP diastolic 64–75; PULSE 60–68; RESP 15–18; TEMP 98.2–100.2; O2SAT 92–100
[2017-08-31] MEDS: HYDROmorphone HCL PF 2 MG/ML VIAL IV PUSH PRN ×3 (01:46→20:07)
[2017-08-31] MEDS ORDERED: LACTATED RINGER'S 1000 ML IV PRN ×2 (02:15→08:45)
[2017-08-31] MEDS ORDERED: POVIDONE IODINE 5% (ANTISEPSIS KIT) 4 APPLICATIONS EACH NARE PRN ×2 (02:15→08:45)
[2017-08-31] MEDS ORDERED: CHLORHEXIDINE GLUCONATE 2 % 1 PACK (2 CLOTHS) TOPICAL PRN ×2 (02:15→08:45)
[2017-08-31] MEDS ORDERED: SODIUM CHLORID 0.9% 500 ML IV PRN ×2 (02:15→08:45)
[2017-08-31] MEDS: ONDANSETRON HCL 4 MG/2 ML VIAL IVP PRN (05:37)
[2017-08-31 05:50] LABS: AUTOMATED NEUTROPHIL # 10.3 TH/MM3 (1.8-7.7); BASOPHIL % 0.2 % (0.0-2.0); EOSINOPHIL % 0.3 % (0.0-4.0); HEMATOCRIT 30.2 % (35.0-46.0); HEMOGLOBIN 9.7 GM/DL (11.6-15.3); LYMPH % 11.7 % (9.0-44.0); LYMPHOCYTE # 1.6 TH/MM3 (1.0-4.8); MEAN CELL VOLUME 92.2 FL (80.0-100.0); MEAN CORPUSCULAR HEMOGLOBIN 29.6 PG (27.0-34.0); MEAN CORPUSCULAR HGB CONC 32.1 % (32.0-36.0); MEAN PLATELET VOLUME 8.6 FL (7.0-11.0); MONO % 10.7 % (0.0-8.0); MONOCYTE # 1.4 TH/MM3 (0-0.9); NEUT % 77.1 % (16.0-70.0); PLATELET COUNT 202 TH/MM3 (150-450); RED BLOOD COUNT 3.28 MIL/MM3 (4.00-5.30); RED CELL DISTRIBUTION WIDTH 15.2 % (11.6-17.2); WHITE BLOOD COUNT 13.3 TH/MM3 (4.0-11.0)
--- NOTE | 2017-08-31 06:29 | PD.ORT.PN ---
Subjective Subjective Remarks Significant pain and swelling to left knee, some confusion Objective Vitals Vital Signs Date Time Temp Pulse Resp B/P (MAP) Pulse Ox O2 Delivery O2 Flow Rate FiO2 08/31/17 00:00 100.2 68 15 135/64 (87) 94 08/30/17 15:31 98.2 63 17 133/73 (93) 95 08/30/17 11:10 99.4 67 18 157/74 (101) 96 08/30/17 08:00 100.7 61 15 125/70 (88) 94 08/30/17 08:00 99.5 66 17 164/69 (100) 95 08/30/17 07:55 68 I/O 08/30/17 08/30/17 08/30/17 08/31/17 08/31/17 08/31/17 07:00 15:00 23:00 07:00 15:00 23:00 Intake Total 120 ml 240 ml 1444 ml Output Total 450 ml 350 ml Balance -330 ml -110 ml 1444 ml Intake Oral 120 ml 240 ml IV Total 1444 ml Output Urine Total 450 ml 350 ml # Bowel Movements 0 0 Result Diagram: 08/31/17 0510 08/30/17 0532 Objective Remarks Left lower extremity: Knee is swollen with effusion. No erythema. Pain with motion. Distally intact pulses and movement of ankle Assessment & Plan Problem List: (1) Dehydration with hypernatremia ICD Codes: E87.0 - Hyperosmolality and hypernatremia (2) Pseudogout of knee ICD Codes: M11.269 - Other chondrocalcinosis, unspecified knee (3) Knee effusion, left ICD Codes: M25.462 - Effusion, left knee Status: Acute Assessment and Plan Synovial fluid cx grew out streptococcus Surgery this morning for irrigation debridement of left knee with Dr. Mccormick today NPO Sign consents Vineet Olivares Jr. Aug 31, 2017 06:29
[2017-08-31 06:36] LABS: CALCIUM 8.7 MG/DL (8.5-10.1); CREATININE 4.88 MG/DL (0.50-1.00); MAGNESIUM 1.9 MG/DL (1.5-2.5)
[2017-08-31] MEDS: METOPROLOL TARTRATE 100 MG TAB PO SCH ×2 (07:57→20:11)
[2017-08-31] MEDS: INSULIN ASPART SUPPLEMENTAL SCALE SQ SCH ×4 (07:57→21:00)
[2017-08-31] MEDS ORDERED: INSULIN HUMAN REGULAR 1,000 UNITS/10 ML VIAL SQ PRN (08:45)
[2017-08-31] MEDS ORDERED: METOPROLOL TARTRATE 25 MG TAB PO PRN (08:45)
[2017-08-31] MEDS: hydrALAZINE HCL 25 MG TAB PO SCH ×2 (09:00→20:11)
[2017-08-31] MEDS: SODIUM CHLORIDE 0.9% FLUSH 10 ML FLUSH IV FLUSH SCH ×2 (09:00→20:13)
[2017-08-31] MEDS: cloNIDine HCL 0.1 MG TAB PO SCH ×2 (09:00→20:11)
[2017-08-31] MEDS ORDERED: GENTAMICIN SULFATE 80 MG/2 ML VIAL ONE (09:24)
[2017-08-31] MEDS ORDERED: VANCOMYCIN HCL 1000 MG VIAL ONE (09:24)
[2017-08-31] MEDS ORDERED: SODIUM CHLOR 0.9% 250 ML INJ 250 ML ONE (09:24)
[2017-08-31] MEDS ORDERED: ceFAZolin 2 GM PREMIX 50 ML ONE (10:32)
--- NOTE | 2017-08-31 11:04 | PD.OP ---
cc: Jose E Mccormick MD Operative Report Date of Surgery: Aug 31, 2017 Preoperative Diagnosis: Left knee septic arthritis Postoperative Diagnosis: Procedure: Left knee arthrotomy with irrigation and debridement Anesthesia: Gen. Surgeon: Jose E Mccormick Director Business Development(s): MOR Parmar PA-C The surgical procedure was assisted by my physician instruction assistant principal. My P.A. presence was necessary throughout this case for the manipulation and positioning of the surgical extremity. My P.A. was assisting me throughout the duration of this procedure. The skill set of a physician instruction assistant principal was medically necessary to complete this procedure. During the surgical case the surgical services director was working at the back table and the physician instruction assistant principal was directly assisting me. Operation and Findings: Vickie was seen and evaluated preoperatively. Patient was found to have infection of the left knee joint. Knee effusion and erythema were noted and aspiration of fluid yielded positive cultures. Informed consent was obtained after detailed discussion of risk and benefits of surgery. Operative site was marked. Patient was brought to the operating room. IV sedation and GETA were administered by anesthesiologist. Operative leg was prepped with alcohol followed by Hibiclens and draped in usual sterile fashion. Timeout procedure was performed. Procedure began with a 4 cm incision over the lateral knee. Subcutaneous tissue dissected with Bovie. Iliotibial band was opened in line with fibers. The joint was now opened through arthrotomy. A large volume of purulent fluid was found within the knee. Specimen was obtained for cultures and sensitivities. The knee joint was manipulated. The knee joint was palpated and loculations were manually debrided. A portion of the synovium was excised. After excisional debridement was complete, the wound was thoroughly irrigated with sterile saline. At this point the wound was clean. Capsule was closed with #1 PDS, Subcutaneous tissues closed with 3-0 PDS and skin was closed with 3 -0 nylon. A JENNIFER drain was placed into the wound. Sterile dressings were applied. Patient was awakened and transferred to recovery in stable condition. Needle and sponge counts were correct Jose E Mccormick MD Aug 31, 2017 11:04
[2017-08-31] MEDS ORDERED: DO NOT ADM ANY ANTICOAGULANT DRUGS PRN (11:10)
[2017-08-31] MEDS: SODIUM CHLOR 0.45% 1000 ML INJ 1,000 ML IV SCH (11:55)
--- NOTE | 2017-08-31 11:55 | PD.ID.CON ---
History of Present Illness Service ID Consult Requested By Dr Dickerson Reason for Consult septic arthritis Primary Care Physician Simon Osorio M.D. Diagnoses: History of Present Illness 71 yo diabetic female with bilateral knee osteoarthritis presenetd 2 days ago with with severe pain L knee x 1 day. No preceding trauma otr procedures. Work up in ER mild leukocytosis with WBC of 11.4 K and a synovial fluid cell count of 19K WBCs and negative Gstain Plain Xrays with no fracrture, showed moderate to severe osteoarthritis, Large joint effusion She was seen buy Dr Mccormick and on Aug 31, 2017 underwent Left knee arthrotomy with irrigation and debridement Her synovial fluid culture is growing STREPTOCOCCUS PNEUMONIAE with SCREENING positive for OXACILLIN RESISTANCE. CXR negative Denies cough Denies fever Review of Systems ROS Limitations: Clinical Condition (right after anaesthesia), Altered Mental Status Past Family Social History Allergies: Coded Allergies: No Known Allergies (Unverified Allergy, Unknown, 08/29/17) Past Medical History Type 2 diabetes mellitus Hypertension CKD stage 5 Atrial fibrillation L breast ca Past Surgical History L breast lumpectomy hysterectomy Active Ordered Medications Medications where reviewed in EMR Antibiotics Include: cefazoline Family History diabetes Social History No Tobacco. No ETOH. No Illicit Drugs. Physical Exam Vital Signs Vital Signs Date Time Temp Pulse Resp B/P (MAP) Pulse Ox O2 Delivery O2 Flow Rate FiO2 08/31/17 11:30 64 15 169/75 (106) 100 08/31/17 11:15 60 10 164/71 (102) 100 08/31/17 11:10 98.5 67 11 149/67 (94) 100 Nasal Cannula 2 08/31/17 08:00 98.7 63 18 145/69 (94) 92 08/31/17 07:15 63 08/31/17 04:00 98.9 61 15 156/70 (98) 94 08/31/17 00:00 100.2 68 15 135/64 (87) 94 08/30/17 15:31 98.2 63 17 133/73 (93) 95 Physical Exam CONSTITUTIONAL/GENERAL: This is a morbidly obese patient, in no apparent distress. TUBES/LINES/DRAINS: SKIN: No jaundice, rashes, or lesions. Skin temperature appropriate. Not diaphoretic. HEAD: Atraumatic. Normocephalic. EYES: Pupils equal and round and reactive. Extraocular motions intact. No scleral icterus. No injection or drainage. Fundi not examined. ENT: Hearing grossly normal. Nose without bleeding or purulent drainage. Throat without visible erythema, exudates, masses, or lesions. NECK: Trachea midline. Supple, nontender. CARDIOVASCULAR: Regular rate and rhythm without murmurs, gallops, or rubs. No JVD. Peripheral pulses symmetric. RESPIRATORY/CHEST: Symmetric, unlabored respirations. Clear to auscultation. Breath sounds equal bilaterally. No wheezes, rales, or rhonchi. GASTROINTESTINAL: Abdomen soft, non-tender, nondistended. No hepato-splenomegaly , or palpable masses. No guarding. Bowel sounds present. GENITOURINARY: Without palpable bladder distension. MUSCULOSKELETAL: Extremities without clubbing, cyanosis, + edema. LLE with dressing in place L knee LYMPHATICS: No palpable cervical or supraclavicular adenopathy. NEUROLOGICAL: Lethargic. Motor and sensory grossly within normal limits. Follows commands. Clear speech. Moves all extremities. PSYCHIATRIC: No obvious anxiety/depression. no apparent hallucinations or other psychotic thought process. Laboratory Laboratory Tests Test 08/31/17 05:10 White Blood Count 13.3 Red Blood Count 3.28 Hemoglobin 9.7 Hematocrit 30.2 Mean Corpuscular Volume 92.2 Mean Corpuscular Hemoglobin 29.6 Mean Corpuscular Hemoglobin Concent 32.1 Red Cell Distribution Width 15.2 Platelet Count 202 Mean Platelet Volume 8.6 Neutrophils (%) (Auto) 77.1 Lymphocytes (%) (Auto) 11.7 Monocytes (%) (Auto) 10.7 Eosinophils (%) (Auto) 0.3 Basophils (%) (Auto) 0.2 Neutrophils # (Auto) 10.3 Lymphocytes # (Auto) 1.6 Monocytes # (Auto) 1.4 Eosinophils # (Auto) 0.0 Basophils # (Auto) 0.0 CBC Comment DIFF FINAL Differential Comment Blood Urea Nitrogen 72 Creatinine 4.88 Random Glucose 119 Calcium Level 8.7 Magnesium Level 1.9 Sodium Level 138 Potassium Level 4.3 Chloride Level 105 Carbon Dioxide Level 23.0 Anion Gap 10 Estimat Glomerular Filtration Rate 11 Date/Time Source Procedure Growth Status 08/29/17 12:46 Fluid Synovial Fluid Gram Stain - Final Resulted 08/29/17 12:46 Body Fluid Culture - Preliminary Streptococcus Pneumoniae Resulted Result Diagram: 08/31/17 0510 08/31/17 0510 Imaging Last Impressions Chest X-Ray 08/29/17 1350 Signed Impressions: Service Date/Time: Tuesday, August 29, 2017 14:11 - CONCLUSION: No acute disease. Vineet Penaloza MD Knee X-Ray 08/29/17 0000 Signed Impressions: Service Date/Time: Tuesday, August 29, 2017 11:01 - CONCLUSION: 1. Moderate severity osteoarthritic findings with mild lateral compartment narrowing. 2. Large joint effusion. 3. No fracture identified. Montana Meade MD Assessment and Plan Assessment and Plan Left knee septic arthritis, MDRO Strep pneumo sp I+D CKD, stage 5 Vancomycin - given will avoid vanco 2/2 renal issues will try zyvox fu clx Discussed Condition With Sierra Gu MD Aug 31, 2017 11:55
[2017-08-31] MEDS ORDERED: LIDOCAINE HCL 1% PF 5 ML SYRINGE OTHER ONE (12:00)
[2017-08-31] MEDS ORDERED: DEXAMETHASONE SOD PHOS 4 MG/ML VIAL IV ONE (12:00)
[2017-08-31] MEDS ORDERED: Vancomycin Consult Pharmacy 1 EA OTHER SCH (12:00)
[2017-08-31] MEDS ORDERED: PROPOFOL 200 MG/20 ML AMP IV ONE (12:00)
[2017-08-31] MEDS ORDERED: ONDANSETRON HCL 4 MG/2 ML VIAL IV PUSH ONE (12:00)
[2017-08-31] MEDS ORDERED: Post-op Orders (for Pharmacy) XX ONE (12:00)
[2017-08-31 12:38] LABS: AMORPHOUS SEDIMENT, URINE FEW; BACTERIA, URINE OCC /hpf; BILIRUBIN, URINE NEG (NEG); BLOOD, URINE MOD (NEG); GLUCOSE,URINE TRACE mg/dL (NEG); KETONE, URINE NEG (NEG); MUCUS URINE FEW /lpf (OCC); NITRITE,URINE NEG (NEG); PH, URINE 5.5 (5.0-8.5); SQUAMOUS EPITHELIAL CELL URINE 2 /hpf (0-5); URINE COLOR YELLOW (YELLW/STRAW); URINE LEUKOCYTE ESTERASE NEG (NEG)
[2017-08-31] MEDS: cloNIDine HCL 0.1 MG TAB PO PRN (13:53)
[2017-08-31] MEDS: LINEZOLID 600 MG PREMIX 300 ML IV SCH (15:23)
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
[2017-09-01] VITALS (12 sets, daily range): BP systolic 119–171; BP diastolic 60–92; PULSE 56–63; RESP 17–18; TEMP 97.8–98.6; O2SAT 99–100
[2017-09-01] MEDS: HYDROmorphone HCL PF 2 MG/ML VIAL IV PUSH PRN ×4 (01:52→21:05)
[2017-09-01] MEDS: LINEZOLID 600 MG PREMIX 300 ML IV SCH (01:55)
--- NOTE | 2017-09-01 06:52 | PD.ORT.PN ---
Subjective Subjective Remarks Name is improving and has less confusion Objective Vitals Vital Signs Date Time Temp Pulse Resp B/P (MAP) Pulse Ox O2 Delivery O2 Flow Rate FiO2 09/01/17 06:04 18 09/01/17 04:17 62 09/01/17 04:00 98.6 56 17 133/60 (84) 99 09/01/17 00:20 63 09/01/17 00:00 97.8 58 17 171/81 (111) 100 144/88 (106) 08/31/17 20:09 60 08/31/17 20:00 98.2 62 17 181/74 (109) 100 08/31/17 16:03 68 08/31/17 13:47 98.6 62 17 178/75 (109) 98 08/31/17 13:00 98.5 60 10 142/63 (89) 96 Nasal Cannula 2 08/31/17 12:45 58 10 150/70 (96) 96 08/31/17 12:30 59 12 149/71 (97) 97 08/31/17 12:15 59 11 176/70 (105) 96 08/31/17 12:00 66 20 162/77 (105) 96 08/31/17 11:45 65 12 179/74 (109) 96 08/31/17 11:30 64 15 169/75 (106) 100 08/31/17 11:15 60 10 164/71 (102) 100 08/31/17 11:10 98.5 67 11 149/67 (94) 100 Nasal Cannula 2 08/31/17 08:00 98.7 63 18 145/69 (94) 92 08/31/17 07:15 63 I/O 08/31/17 08/31/17 08/31/17 09/01/17 09/01/17 09/01/17 07:00 15:00 23:00 07:00 15:00 23:00 Intake Total 1000 ml 500 ml Output Total 1040 ml 20 ml 650 ml Balance -1040 ml 980 ml -150 ml Intake Oral 200 ml IV Total 300 ml Other 1000 ml Output Urine Total 1040 ml 650 ml Estimated Blood Loss 20 ml # Bowel Movements 0 Result Diagram: 08/31/17 0510 08/31/17 0510 Objective Remarks Left lower extremity: Knee is swollen with effusion. Clean dry dressings intact with drain in place Pain with motion. Distally intact pulses and movement of ankle Assessment & Plan Problem List: (1) Dehydration with hypernatremia ICD Codes: E87.0 - Hyperosmolality and hypernatremia (2) Pseudogout of knee ICD Codes: M11.269 - Other chondrocalcinosis, unspecified knee (3) Knee effusion, left ICD Codes: M25.462 - Effusion, left knee Status: Acute Assessment and Plan Septic left knee status post I&D POD 1 Daily dressing changes beginning POD 2 Drain maintenance IV antibiotics Physical therapy weightbearing as tolerated left lower extremity and passive and active range of motion of knee Continue to work toward discharge plan Vineet Olivares Jr. Sep 01, 2017 06:52
[2017-09-01] MEDS: SODIUM CHLORIDE 0.9% FLUSH 10 ML FLUSH IV FLUSH SCH ×2 (07:48→21:00)
[2017-09-01] MEDS: INSULIN ASPART SUPPLEMENTAL SCALE SQ SCH ×4 (08:00→21:06)
[2017-09-01] MEDS: METOPROLOL TARTRATE 100 MG TAB PO SCH ×2 (08:27→21:12)
[2017-09-01] MEDS: hydrALAZINE HCL 25 MG TAB PO SCH ×2 (08:27→21:15)
[2017-09-01] MEDS: cloNIDine HCL 0.1 MG TAB PO SCH ×2 (08:27→21:00)
[2017-09-01] MEDS: SODIUM CHLOR 0.45% 1000 ML INJ 1,000 ML IV SCH (08:28)
[2017-09-01] MEDS: cefTRIAXone INJ 2,000 MG in SODIUM CHLORIDE 0.9% INJ 100 ML IV SCH (11:48)
[2017-09-01 12:07] LABS: AUTOMATED NEUTROPHIL # 9.3 TH/MM3 (1.8-7.7); BASOPHIL % 0.1 % (0.0-2.0); EOSINOPHIL # 0.1 TH/MM3 (0-0.4); EOSINOPHIL % 0.9 % (0.0-4.0); HEMATOCRIT 33.5 % (35.0-46.0); HEMOGLOBIN 10.9 GM/DL (11.6-15.3); LYMPH % 9.8 % (9.0-44.0); LYMPHOCYTE # 1.1 TH/MM3 (1.0-4.8); MEAN CELL VOLUME 93.3 FL (80.0-100.0); MEAN CORPUSCULAR HEMOGLOBIN 30.2 PG (27.0-34.0); MEAN CORPUSCULAR HGB CONC 32.4 % (32.0-36.0); MEAN PLATELET VOLUME 9.1 FL (7.0-11.0); MONO % 9.4 % (0.0-8.0); MONOCYTE # 1.1 TH/MM3 (0-0.9); NEUT % 79.8 % (16.0-70.0); PLATELET COUNT 225 TH/MM3 (150-450); RED BLOOD COUNT 3.59 MIL/MM3 (4.00-5.30); RED CELL DISTRIBUTION WIDTH 15.6 % (11.6-17.2); WHITE BLOOD COUNT 11.7 TH/MM3 (4.0-11.0)
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
[2017-09-01] MEDS ORDERED: POLYETHYLENE GLYCOL 17 GM PKG PO ONE (17:00)
[2017-09-01 18:43] LABS: CALCIUM 8.2 MG/DL (8.5-10.1); CREATININE 5.7 MG/DL (0.50-1.00); MAGNESIUM 2.2 MG/DL (1.5-2.5)
[2017-09-01 19:15] LABS: FOLATE 7.4 NG/ML (3.1-17.5); FREE T4 1.42 NG/DL (0.76-1.46)
--- NOTE | 2017-09-01 20:01 | RADRPT ---
EXAM DATE/TIME: 09/01/2017 19:30 [facility] COMPARISON: No previous studies available for comparison. INDICATIONS : Abdominal pain. MEDICAL HISTORY : Carcinoma, left breast. SURGICAL HISTORY : None. ENCOUNTER: Initial ACUITY: 1 day PAIN SCORE: Non-responsive. LOCATION: Bilateral abdomen. FINDINGS: Supine view of the abdomen was performed. The abdominal bowel gas pattern is normal. No abnormal ma sses, calcifications, or organomegaly is seen. The osseous structures are unremarkable. CONCLUSION: Normal examination. Bashir Kauffman Jr., MD on September 01, 2017 at 19:59 Board Certified Radiologist. This report was verified electronically.
--- NOTE | 2017-09-01 20:12 | RADRPT ---
EXAM DATE/TIME: 09/01/2017 19:42 [facility] COMPARISON: No previous studies available for comparison. INDICATIONS : Altered mental status. RADIATION DOSE: 20.40 CTDIvol (mGy) MEDICAL HISTORY : Hypertension. Cardiovascular disease Carcinoma, breast. SURGICAL HISTORY : Hysterectomy. ENCOUNTER: Initial ACUITY: 1 day PAIN SCALE: 0/10 LOCATION: cranial TECHNIQUE: Multiple contiguous axial images were obtained of the head. Using automated exposure control and adj ustment of the mA and/or kV according to patient size, radiation dose was kept as low as reasonably a chievable to obtain optimal diagnostic quality images. DICOM format image data is available electro nically for review and comparison. FINDINGS: CEREBRUM: The ventricles are normal for age. No evidence of midline shift, mass lesion, hemorrhage or acute in farction. No extra-axial fluid collections are seen. POSTERIOR FOSSA: The cerebellum and brainstem are intact. The 4th ventricle is midline. The cerebellopontine angle i s unremarkable. EXTRACRANIAL: The visualized portion of the orbits is intact. SKULL: The calvaria is intact. No evidence of skull fracture. CONCLUSION: No acute disease. Bashir Kauffman Jr., MD on September 01, 2017 at 20:09 Board Certified Radiologist. This report was verified electronically.
[2017-09-02] VITALS (8 sets, daily range): BP systolic 131–169; BP diastolic 59–79; PULSE 51–74; RESP 18–20; TEMP 98.3–98.7; O2SAT 93–98
[2017-09-02] MEDS: HYDROmorphone HCL PF 2 MG/ML VIAL IV PUSH PRN ×2 (03:27→22:31)
--- NOTE | 2017-09-02 07:07 | PD.ORT.PN ---
Subjective Subjective Remarks POD 2 s/p I&D left knee patient confused. demented. cannot answer questions. daughters at bedside. report that patient had significant pain with therapy yesterday Objective Vitals Vital Signs Date Time Temp Pulse Resp B/P (MAP) Pulse Ox O2 Delivery O2 Flow Rate FiO2 09/02/17 04:14 17 09/02/17 04:00 Nasal Cannula 2.00 09/02/17 04:00 51 09/02/17 02:32 18 09/02/17 00:15 54 09/01/17 21:05 Nasal Cannula 2.00 09/01/17 20:00 98.6 63 18 119/65 (83) 100 09/01/17 19:59 58 09/01/17 15:51 61 09/01/17 14:07 98.5 59 17 140/62 (88) 100 09/01/17 12:12 98.4 57 18 153/69 (97) 100 09/01/17 11:53 58 09/01/17 08:07 98.2 56 18 157/92 (113) 100 09/01/17 07:41 58 I/O 09/01/17 09/01/17 09/01/17 09/02/17 09/02/17 09/02/17 07:00 15:00 23:00 07:00 15:00 23:00 Intake Total 500 ml 240 ml Output Total 700 ml 350 ml Balance -200 ml -110 ml Intake Oral 200 ml 240 ml IV Total 300 ml Output Urine Total 650 ml 350 ml Drainage Total 50 ml # Bowel Movements 0 0 Result Diagram: 09/01/17 1135 09/01/17 3070 Objective Remarks Left lower extremity: Knee is swollen with effusion. Clean dry dressings intact with drain in place Pain with motion. Distally intact pulses and movement of ankle Assessment & Plan Problem List: (1) Dehydration with hypernatremia ICD Codes: E87.0 - Hyperosmolality and hypernatremia (2) Pseudogout of knee ICD Codes: M11.269 - Other chondrocalcinosis, unspecified knee (3) Knee effusion, left ICD Codes: M25.462 - Effusion, left knee Status: Acute Assessment and Plan 1) Septic left knee status post I&D - POD 2 Daily dressing changes Drain maintenance, DC drain POD 3 IV antibiotics per infectious disease medical mgmt Physical therapy weightbearing as tolerated left lower extremity and passive and active range of motion of knee Continue to work toward discharge plan f/u with Barry or PA in 2 weeks Floyd Monae/First Shruti BABB Sep 02, 2017 07:07
[2017-09-02] MEDS: INSULIN ASPART SUPPLEMENTAL SCALE SQ SCH ×3 (08:00→21:01)
[2017-09-02] MEDS: METOPROLOL TARTRATE 100 MG TAB PO SCH ×2 (09:24→20:07)
[2017-09-02] MEDS: cloNIDine HCL 0.1 MG TAB PO SCH ×2 (09:24→20:07)
[2017-09-02] MEDS: POLYETHYLENE GLYCOL 17 GM PKG PO SCH (09:25)
[2017-09-02] MEDS: SODIUM CHLORIDE 0.9% FLUSH 10 ML FLUSH IV FLUSH SCH ×2 (09:25→20:15)
[2017-09-02] MEDS: hydrALAZINE HCL 25 MG TAB PO SCH ×2 (09:25→20:07)
[2017-09-02] MEDS ORDERED: SODIUM CHLOR 0.9% 1000 ML INJ 1,000 ML OTHER PRN ×2 (11:05)
[2017-09-02] MEDS ORDERED: SODIUM CHLOR 0.9% 1000 ML INJ 1,000 ML IV PRN (11:05)
--- NOTE | 2017-09-02 11:14 | PD.CONS ---
HPI Service Nephrology Consult Requested By Dr. Dickerson Reason for Consult ESRD Primary Care Physician Simon Osorio M.D. History of Present Illness Patient is a 71 year old female with ESRD , seen in June was told to consider dialysis, GFR 13 in office, she got Left Knee effusion, s/p arthrotomy and is confused as has septic knee, her kidney functions are worse, per family she was afraid of dialysis and did not make any decisions but talked about not doing it. Past Family Social History Allergies: Coded Allergies: No Known Allergies (Unverified Allergy, Unknown, 08/29/17) Past Medical History Type 2 diabetes mellitus Hypertension CKD stage 5 Atrial fibrillation Past Surgical History Left knee hysterectomy Reported Medications Reported Meds & Active Scripts Active Reported Amlodipine (Amlodipine Besylate) 10 Mg Tab 10 Mg PO DAILY Timoptic Opth Drops (Timolol Opth Drops) Unknown Strength Soln Unknown Dose EACH EYE BID Calcitriol 0.25 Mcg Cap 0.25 Mcg PO DAILY Hydralazine HCl 25 Mg Tablet 25 Mg PO BID Novolog Inj (Insulin Aspart) 1,000 Unit/10 Ml Vial 0 SQ DIRECTED Sliding Scale as directed. Levemir Inj (Insulin Detemir) 1,000 unit/ 10 ML Vial 80 Units SQ DAILY Do not mix with any other Insulin. Hydrochlorothiazide 25 Mg Tab 25 Mg PO DAILY Lisinopril 40 Mg Tab 40 Mg PO DAILY Clonidine (Clonidine HCl) 0.1 Mg Tab 0.1 Mg PO BID Losartan (Losartan Potassium) 100 Mg Tab 100 Mg PO DAILY Metoprolol Tartrate 100 Mg Tab 100 Mg PO BID Active Ordered Medications Current Medications Medications (Trade) Dose Ordered Sig/Alexandrea Route Start Time Stop Time Status Last Admin (NS Flush) 2 ml UNSCH PRN IV FLUSH 08/29/17 14:00 (NS Flush) 2 ml BID IV FLUSH 08/29/17 21:00 09/02/17 09:25 (Tylenol) 650 mg Q4H PRN PO 08/29/17 14:00 08/30/17 23:39 (Zofran Inj) 4 mg Q6H PRN IVP 08/29/17 14:00 08/31/17 05:37 (Narcan Inj) 0.4 mg UNSCH PRN IV PUSH 08/29/17 14:00 (NovoLOG SUPPLEMENTAL SCALE) 1 ACHS SLIDING SCALE SQ 08/29/17 17:00 09/01/17 21:06 (D50w (Vial) Inj) 50 ml UNSCH PRN IV PUSH 08/29/17 14:15 (Glucagon Inj) 1 mg UNSCH PRN OTHER 08/29/17 14:15 Sodium Chloride 1,000 ml @ 42 mls/hr [id number] IV 08/29/17 17:00 09/01/17 08:28 (Norvasc) 10 mg DAILY PO 08/30/17 09:00 09/02/17 09:24 (Catapres) 0.1 mg BID PO 08/29/17 21:00 09/02/17 09:24 (Apresoline) 25 mg BID PO 08/29/17 21:00 09/02/17 09:25 (Lopressor) 100 mg BID PO 08/29/17 21:00 09/02/17 09:24 (Catapres) 0.1 mg Q6H PRN PO 08/30/17 17:30 08/31/17 13:53 (Roxicodone) 15 mg Q6H PRN PO 08/30/17 17:45 09/02/17 06:11 Lactated Ringer's 1,000 ml @ 30 mls/hr Q24H PRN IV 08/31/17 08:45 09/03/17 08:44 Sodium Chloride 500 ml @ 30 mls/hr [id number] PRN IV 08/31/17 08:45 09/03/17 08:44 (Lopressor) 25 mg SPREADER OPERATOR PRN PO 08/31/17 08:45 09/03/17 08:44 (Betadine 5% Antisepsis Kit) 1 applic SPREADER OPERATOR PRN EACH NARE 08/31/17 08:45 09/03/17 08:44 (Chlorhexidine 2% Cloth) 3 pack SPREADER OPERATOR PRN TOPICAL 08/31/17 08:45 09/03/17 08:44 (NovoLIN R INJ) See Protocol Table ... SPREADER OPERATOR PRN SQ 08/31/17 08:45 09/03/17 08:44 (Dilaudid Pf Inj) 1 mg Q6H PRN IV PUSH 09/01/17 00:30 09/02/17 03:27 Ceftriaxone Sodium 2000 mg/ Sodium Chloride 100 ml @ 200 mls/hr Q24H IV 09/01/17 11:00 09/01/17 11:48 (Miralax) 17 gm DAILY PO 09/02/17 09:00 09/02/17 09:25 Family History noncontributory Social History denies smoking or ETOH Physical Exam Vital Signs Vital Signs Date Time Temp Pulse Resp B/P (MAP) Pulse Ox O2 Delivery O2 Flow Rate FiO2 09/02/17 08:07 98.4 65 20 146/68 (94) 95 09/02/17 04:14 17 09/02/17 04:00 98.3 60 18 137/59 (85) 95 09/02/17 04:00 Nasal Cannula 2.00 09/02/17 04:00 51 09/02/17 02:32 18 09/02/17 00:15 54 09/02/17 00:00 98.4 57 20 131/74 (93) 98 09/01/17 21:05 Nasal Cannula 2.00 09/01/17 20:00 98.6 63 18 119/65 (83) 100 09/01/17 19:59 58 09/01/17 15:51 61 09/01/17 14:07 98.5 59 17 140/62 (88) 100 09/01/17 12:12 98.4 57 18 153/69 (97) 100 09/01/17 11:53 58 Physical Exam GENERAL: Well-nourished, well-developed patient.confused SKIN: Warm and dry. HEAD: Normocephalic. EYES: No scleral icterus. No injection or drainage. NECK: Supple, trachea midline. No JVD or lymphadenopathy. CARDIOVASCULAR: Regular rate and rhythm without murmurs, gallops, or rubs. RESPIRATORY: Breath sounds equal bilaterally. No accessory muscle use. GASTROINTESTINAL: Abdomen soft, non-tender, nondistended. EXTREMITIES: No cyanosis, or edema. Left knee wrapped NEUROLOGICAL: Awake, confused Laboratory Laboratory Tests Test 09/01/17 11:35 09/01/17 16:42 09/01/17 17:59 09/02/17 10:21 White Blood Count 11.7 Red Blood Count 3.59 Hemoglobin 10.9 Hematocrit 33.5 Mean Corpuscular Volume 93.3 Mean Corpuscular Hemoglobin 30.2 Mean Corpuscular Hemoglobin Concent 32.4 Red Cell Distribution Width 15.6 Platelet Count 225 Mean Platelet Volume 9.1 Neutrophils (%) (Auto) 79.8 Lymphocytes (%) (Auto) 9.8 Monocytes (%) (Auto) 9.4 Eosinophils (%) (Auto) 0.9 Basophils (%) (Auto) 0.1 Neutrophils # (Auto) 9.3 Lymphocytes # (Auto) 1.1 Monocytes # (Auto) 1.1 Eosinophils # (Auto) 0.1 Basophils # (Auto) 0.0 CBC Comment DIFF FINAL Differential Comment Vitamin B12 Level 1094 Folate 7.4 Free Thyroxine 1.42 Thyroid Stimulating Hormone 3rd Gen 3.030 Blood Urea Nitrogen 86 Creatinine 5.70 Random Glucose 151 Calcium Level 8.2 Magnesium Level 2.2 Sodium Level 136 Potassium Level 4.5 Chloride Level 101 Carbon Dioxide Level 23.0 Anion Gap 12 Estimat Glomerular Filtration Rate 9 Ammonia LESS THAN 10 Date/Time Source Procedure Growth Status 08/31/17 10:30 Fluid Other Fungal Smear - Final NO FUNGAL ELEMENTS SEEN. Resulted 08/31/17 10:30 Fluid Other Fungal Culture Pending Resulted 08/31/17 10:30 Tissue Knee Fungal Smear - Final NO FUNGAL ELEMENTS SEEN. Resulted 08/31/17 10:30 Tissue Knee Fungal Culture Pending Resulted Result Diagram: 09/01/17 1135 09/01/17 1759 Imaging Last Impressions Head CT 09/01/17 0000 Signed Impressions: Service Date/Time: Friday, September 01, 2017 19:42 - CONCLUSION: No acute disease. Bashir Kauffman Jr., MD Abdomen X-Ray 09/01/17 0000 Signed Impressions: Service Date/Time: Friday, September 01, 2017 19:30 - CONCLUSION: Normal examination. Bashir Kauffman Jr., MD Chest X-Ray 08/29/17 1350 Signed Impressions: Service Date/Time: Tuesday, August 29, 2017 14:11 - CONCLUSION: No acute disease. Vineet Penaloza MD Knee X-Ray 08/29/17 0000 Signed Impressions: Service Date/Time: Tuesday, August 29, 2017 11:01 - CONCLUSION: 1. Moderate severity osteoarthritic findings with mild lateral compartment narrowing. 2. Large joint effusion. 3. No fracture identified. Montana Meade MD Assessment and Plan Problem List: (1) ESRD (end stage renal disease) ICD Codes: N18.6 - End stage renal disease Plan: uremic encephalopathy discussed indication of dialysis option given to family they decided to proceed 1723 pm seen at dialysis confused remember my name HD UF 3 L noted (2) Chronic kidney disease, stage 5 ICD Codes: N18.5 - Chronic kidney disease, stage 5 Plan: renal function worse need for dialysis. Avoid nephrotoxic agents. Avoid Gadolinium. Monitor potassium, other electrolytes, acid base status. (3) Type 2 diabetes mellitus with diabetic chronic kidney disease ICD Codes: E11.22 - Type 2 diabetes mellitus with diabetic chronic kidney disease Plan: insulin coverage, maintain blood glucose between 140 and 180 (4) HTN (hypertension) ICD Codes: I10 - Essential (primary) hypertension Plan: Restart home medications. (5) Knee effusion, left ICD Codes: M25.462 - Effusion, left knee Status: Acute Plan: s/p arthrocentesis. Seen by ortho. Linus Aly MD Sep 02, 2017 11:14
[2017-09-02] MEDS ORDERED: ALBUMIN 25% INJ 100 ML IV PRN (11:15)
[2017-09-02] MEDS ORDERED: GELATIN 12 MM/7 MM FOAM TOP PRN (11:15)
[2017-09-02] MEDS ORDERED: NITROGLYCERIN 0.4 MG SL 25 TABS/BTL SL PRN (11:15)
[2017-09-02] MEDS ORDERED: ONDANSETRON HCL 4 MG/2 ML VIAL IV PUSH PRN (11:15)
[2017-09-02] MEDS ORDERED: cloNIDine HCL 0.1 MG TAB PO PRN (11:15)
[2017-09-02] MEDS ORDERED: SODIUM CHLORIDE 0.9% FLUSH 10 ML FLUSH IV FLUSH PRN ×2 (11:15→16:45)
[2017-09-02] MEDS ORDERED: HEPARIN SODIUM - IV 10,000 UNITS/10 ML VIAL IV FLUSH PRN (11:15)
[2017-09-02] MEDS ORDERED: MANNITOL 12.5 GM/50 ML VIAL IV PRN (11:15)
[2017-09-02] MEDS ORDERED: diphenhydrAMINE HCL 25 MG CAP PO PRN (11:15)
[2017-09-02 11:17] LABS: BICARBONATE 19.7 MEQ/L (21.0-32.0); CALCIUM 7.8 MG/DL (8.5-10.1); CREATININE 6.07 MG/DL (0.50-1.00)
[2017-09-02] MEDS: cefTRIAXone INJ 2,000 MG in SODIUM CHLORIDE 0.9% INJ 100 ML IV SCH (12:08)
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
--- NOTE | 2017-09-02 16:41 | RADRPT ---
EXAM DATE/TIME: 09/02/2017 16:52 [place] COMPARISON: No previous studies available for comparison. INDICATIONS : Patient presents with end stage renal disease in need of temporary dialysis catheter placement. MEDICAL HISTORY : ESRD Left breast cancer LUE lymphedema HTN Diabetes millitus CKD Obesity Osteoarthritis SURGICAL HISTORY : Hysterectomy Left breast lumpectomy in 2008 ENCOUNTER: Initial ACUITY: 4-6 days PAIN SCORE: 0/10 LOCATION: N/A FLUORO TIME: 0.4 minutes IMAGE SERIES: ACCESS: Right internal jugular vein DEVICE(S): 1.) 14 Persian dual lumen 15 cm Schon catheter PROCEDURE : 1. Ultrasound guided venipuncture. 2. Fluoroscopic guidance. 3. Central line placement. The risks, benefits and alternatives to the procedure were explained and verbal and written consent w as obtained. The site was prepped in sterile fashion. Full sterile technique was used, including ca p, mask, sterile gloves and gown and a large sterile sheet. Hand hygiene and 2% chlorhexidine prep w as utilized per protocol for cutaneous antisepsis with appropriate dry time for site. Sterile gel an d sterile probe cover were utilized for ultrasound guidance. The skin and subcutaneous tissues were infiltrated with local anesthetic solution. A suitable site a jessi the vein was selected with ultrasound and fluoroscopic guidance. A small incision was made. Th e vein was accessed under direct ultrasound visualization using the micropuncture technique. The ramsey ropuncture set was exchanged for a 0.035 wire. The tract was dilated. The catheter was advanced int o position under direct fluoroscopic visualization. The catheter was fixed in place with suture and a sterile dressing was applied. The patient tolerated the procedure well and there were no complications. CONCLUSION: Uncomplicated line placement as above. Harsha Ortiz MD on September 02, 2017 at 16:39 Board Certified Radiologist. This report was verified electronically.
[2017-09-02] MEDS ORDERED: HEPARIN SODIUM - IV 2,000 UNITS/2 ML VIAL IV FLUSH PRN (16:45)
--- NOTE | 2017-09-02 16:45 | PD.RAD ---
Post Procedure Progress Note Pre Procedure Diagnosis: (1) ESRD (end stage renal disease) Post Procedure Diagnosis: (1) ESRD (end stage renal disease) Procedure Date: Sep 02, 2017 Supervising Radiologist: Harsha Ortiz Proceduralist/Assist: RT Bam(R) Anesthesia: Local Plan of Activity Patient to Unit: Nursing Unit Patient Condition: Fair See PACS Report for procedural detail/treatment Central Venous Access Device Procedure 1 Right Internal Jugular Hemodialysis Catheter Non-Tunneled Placement dual lumen Wallisian: 14 Additional Detail: 15cm Harsha Turcios MD Sep 02, 2017 16:45
--- NOTE | 2017-09-02 17:19 | HHI.IDPN ---
Subjective Subjective Remarks Doing OK sp HD cath placement Strep pneumo R PCN S CFTX Antibiotics CFTX Allergies: Coded Allergies: No Known Allergies (Unverified Allergy, Unknown, 08/29/17) Objective . Vital Signs Date Time Temp Pulse Resp B/P (MAP) Pulse Ox O2 Delivery O2 Flow Rate FiO2 09/02/17 12:07 98.7 74 20 169/79 (109) 93 09/02/17 08:07 98.4 65 20 146/68 (94) 95 09/02/17 08:00 Nasal Cannula 2.00 09/02/17 07:40 60 09/02/17 04:14 17 09/02/17 04:00 98.3 60 18 137/59 (85) 95 09/02/17 04:00 Nasal Cannula 2.00 09/02/17 04:00 51 09/02/17 02:32 18 09/02/17 00:15 54 09/02/17 00:00 98.4 57 20 131/74 (93) 98 09/01/17 21:05 Nasal Cannula 2.00 09/01/17 20:00 98.6 63 18 119/65 (83) 100 09/01/17 19:59 58 . Laboratory Tests Test 09/01/17 11:35 White Blood Count 11.7 TH/MM3 Red Blood Count 3.59 MIL/MM3 Hemoglobin 10.9 GM/DL Hematocrit 33.5 % Mean Corpuscular Volume 93.3 FL Mean Corpuscular Hemoglobin 30.2 PG Mean Corpuscular Hemoglobin Concent 32.4 % Red Cell Distribution Width 15.6 % Platelet Count 225 TH/MM3 Mean Platelet Volume 9.1 FL Neutrophils (%) (Auto) 79.8 % Lymphocytes (%) (Auto) 9.8 % Monocytes (%) (Auto) 9.4 % Eosinophils (%) (Auto) 0.9 % Basophils (%) (Auto) 0.1 % Neutrophils # (Auto) 9.3 TH/MM3 Lymphocytes # (Auto) 1.1 TH/MM3 Monocytes # (Auto) 1.1 TH/MM3 Eosinophils # (Auto) 0.1 TH/MM3 Basophils # (Auto) 0.0 TH/MM3 CBC Comment DIFF FINAL Differential Comment Laboratory Tests Test 09/01/17 16:42 09/01/17 17:59 09/02/17 10:21 Vitamin B12 Level 1094 PG/ML Folate 7.4 NG/ML Free Thyroxine 1.42 NG/DL Thyroid Stimulating Hormone 3rd Gen 3.030 uIU/ML Blood Urea Nitrogen 86 MG/DL 81 MG/DL Creatinine 5.70 MG/DL 6.07 MG/DL Random Glucose 151 MG/DL 116 MG/DL Calcium Level 8.2 MG/DL 7.8 MG/DL Magnesium Level 2.2 MG/DL Sodium Level 136 MEQ/L 131 MEQ/L Potassium Level 4.5 MEQ/L 4.6 MEQ/L Chloride Level 101 MEQ/L 98 MEQ/L Carbon Dioxide Level 23.0 MEQ/L 19.7 MEQ/L Anion Gap 12 MEQ/L 13 MEQ/L Estimat Glomerular Filtration Rate 9 ML/MIN 8 ML/MIN Ammonia LESS THAN 10 MCMOL/L Microbiology Date/Time Source Procedure Growth Status 08/31/17 10:30 Fluid Other Fungal Smear - Final NO FUNGAL ELEMENTS SEEN. Resulted 08/31/17 10:30 Fluid Other Fungal Culture Pending Resulted 08/31/17 10:30 Fluid Other Acid Fast Stain - Final NO ACID FAST BACILLI SEEN Resulted 08/31/17 10:30 Fluid Other Mycobacterial Culture Pending Resulted 08/31/17 10:30 Fluid Other Gram Stain - Final Resulted 08/31/17 10:30 Fluid Other Body Fluid Culture - Preliminary NO GROWTH IN 48 HOURS. Resulted 08/31/17 10:30 Tissue Knee Fungal Smear - Final NO FUNGAL ELEMENTS SEEN. Resulted 08/31/17 10:30 Tissue Knee Fungal Culture Pending Resulted 08/31/17 10:30 Tissue Knee Acid Fast Stain - Final NO ACID FAST BACILLI SEEN Resulted 08/31/17 10:30 Tissue Knee Mycobacterial Culture Pending Resulted 08/31/17 10:30 Tissue Knee Gram Stain - Final Resulted 08/31/17 10:30 Tissue Knee Wound Culture - Preliminary NO GROWTH IN 48 HOURS. Resulted 08/31/17 10:30 Wound Knee Fungal Smear - Final NO FUNGAL ELEMENTS SEEN. Resulted 08/31/17 10:30 Wound Knee Fungal Culture Pending Resulted 08/31/17 10:30 Wound Knee Acid Fast Stain - Final NO ACID FAST BACILLI SEEN Resulted 08/31/17 10:30 Wound Knee Mycobacterial Culture Pending Resulted 08/31/17 10:30 Wound Knee Gram Stain - Final Resulted 08/31/17 10:30 Wound Knee Wound Culture - Preliminary NO GROWTH IN 48 HOURS. Resulted Imaging Last Impressions Catheter Placement X-Ray 1/18/18 0000 Signed Impressions: Service Date/Time: August 16:52 - CONCLUSION: Uncomplicated line placement as above. Harsha Ortiz MD Head CT 09/01/17 0000 Signed Impressions: Service Date/Time: Friday, September 01, 2017 19:42 - CONCLUSION: No acute disease. Bashir Kauffman Jr., MD Abdomen X-Ray 09/01/17 0000 Signed Impressions: Service Date/Time: Friday, September 01, 2017 19:30 - CONCLUSION: Normal examination. Bashir Kauffman Jr., MD Chest X-Ray 08/29/17 1350 Signed Impressions: Service Date/Time: Tuesday, August 29, 2017 14:11 - CONCLUSION: No acute disease. Vineet Penaloza MD Knee X-Ray 08/29/17 0000 Signed Impressions: Service Date/Time: Tuesday, August 29, 2017 11:01 - CONCLUSION: 1. Moderate severity osteoarthritic findings with mild lateral compartment narrowing. 2. Large joint effusion. 3. No fracture identified. Montana Meade MD Physical Exam CONSTITUTIONAL/GENERAL: This is a morbidly obese patient, in no apparent distress. TUBES/LINES/DRAINS: SKIN: No jaundice, rashes, or lesions. Skin temperature appropriate. Not diaphoretic. CARDIOVASCULAR: Regular rate and rhythm without murmurs, gallops, or rubs. No JVD. Peripheral pulses symmetric. RESPIRATORY/CHEST: Symmetric, unlabored respirations. Clear to auscultation. Breath sounds equal bilaterally. No wheezes, rales, or rhonchi. GASTROINTESTINAL: Abdomen soft, non-tender, nondistended. No hepato-splenomegaly , or palpable masses. No guarding. Bowel sounds present. GENITOURINARY: Without palpable bladder distension. MUSCULOSKELETAL: Extremities without clubbing, cyanosis, + edema. LLE with dressing in place L knee JENNIFER in place with cloudy serosang drainage NEUROLOGICAL: awake alert PSYCHIATRIC: calm cooperative b Assessment & Plan Remarks Left knee septic arthritis, MDRO Strep pneumo sp I+D CKD, stage 5 - HD initiation is planned CFTX Not a candidate for PICC As o/p we can RX her with vancomycin with HD x 4 weeks Sierra Lewis MD Sep 02, 2017 17:19
[2017-09-02] MEDS: EPOETIN ALFA 10,000 UNITS/ML VIAL IV PUSH PRN (18:15)
[2017-09-02] MEDS: GENTAMICIN SULFATE 20 MG/2 ML VIAL OTHER PRN (18:16)
[2017-09-02] MEDS: HEPARIN SODIUM - IV 10,000 UNITS/10 ML VIAL PRN (18:16)
[2017-09-02] MEDS: SODIUM CHLOR 0.45% 1000 ML INJ 1,000 ML IV SCH (21:06)
[2017-09-03] VITALS (10 sets, daily range): BP systolic 67–183; BP diastolic 59–79; PULSE 56–94; RESP 16–22; TEMP 98.1–99; O2SAT 94–97
[2017-09-03] MEDS: INSULIN ASPART SUPPLEMENTAL SCALE SQ SCH ×4 (08:00→21:00)
[2017-09-03 08:09] LABS: AUTOMATED NEUTROPHIL # 6.9 TH/MM3 (1.8-7.7); BASOPHIL % 0.3 % (0.0-2.0); EOSINOPHIL # 0.2 TH/MM3 (0-0.4); HEMATOCRIT 31.1 % (35.0-46.0); LYMPH % 11.5 % (9.0-44.0); MEAN CELL VOLUME 91.2 FL (80.0-100.0); MEAN CORPUSCULAR HEMOGLOBIN 29.4 PG (27.0-34.0); MEAN CORPUSCULAR HGB CONC 32.3 % (32.0-36.0); MEAN PLATELET VOLUME 8.9 FL (7.0-11.0); MONO % 11.1 % (0.0-8.0); NEUT % 75.1 % (16.0-70.0); PLATELET COUNT 247 TH/MM3 (150-450); RED BLOOD COUNT 3.41 MIL/MM3 (4.00-5.30); RED CELL DISTRIBUTION WIDTH 15.4 % (11.6-17.2); WHITE BLOOD COUNT 9.2 TH/MM3 (4.0-11.0)
[2017-09-03 08:39] LABS: BICARBONATE 21.8 MEQ/L (21.0-32.0); CALCIUM 7.9 MG/DL (8.5-10.1); CREATININE 4.77 MG/DL (0.50-1.00)
[2017-09-03] MEDS: SODIUM CHLORIDE 0.9% FLUSH 10 ML FLUSH IV FLUSH SCH ×2 (09:00→21:24)
--- NOTE | 2017-09-03 10:04 | HHI.NPPN ---
Subjective History of Present Illness 71 year old with ESRD L knee sepsis Objective Data Data Vital Signs Date Time Temp Pulse Resp B/P (MAP) Pulse Ox O2 Delivery O2 Flow Rate FiO2 09/03/17 04:00 98.1 61 18 155/59 (91) 95 09/03/17 03:45 68 09/03/17 00:29 21 09/03/17 00:00 Room Air 09/03/17 00:00 98.5 56 18 132/60 (84) 96 09/02/17 20:03 98.4 60 18 161/69 (99) 96 09/02/17 20:00 Room Air 09/02/17 19:45 69 09/02/17 12:07 98.7 74 20 169/79 (109) 93 -: 09/03/17 0707 09/03/17 0707 Physical Exam General Appearance: Well Developed, Well Nourished Neck Neck Exam: Neck Supple Pulmonary Resp Exam: Clear Bilaterally, Breath Sounds Equal Cardiology CV Exam: Regular, Normal Sinus Rhythm Gastrointestinal/Abdomen GI Exam: Soft, Non-Tender, Bowel Sounds Present Extremeties Extremities Exam: No Edema Assessment/Plan Problem List: (1) ESRD (end stage renal disease) ICD Codes: N18.6 - End stage renal disease Plan: uremic encephalopathy better but still confused seen at HD 2 L UF then MWF she will need to be awake to discuss modality discuss with daughter she showed interest in PD (2) Chronic kidney disease, stage 5 ICD Codes: N18.5 - Chronic kidney disease, stage 5 Plan: renal function worse need for dialysis. Avoid nephrotoxic agents. Avoid Gadolinium. Monitor potassium, other electrolytes, acid base status. (3) Type 2 diabetes mellitus with diabetic chronic kidney disease ICD Codes: E11.22 - Type 2 diabetes mellitus with diabetic chronic kidney disease Plan: insulin coverage, maintain blood glucose between 140 and 180 (4) HTN (hypertension) ICD Codes: I10 - Essential (primary) hypertension Plan: Restart home medications. (5) Knee effusion, left ICD Codes: M25.462 - Effusion, left knee Status: Acute Plan: s/p arthrocentesis. Seen by Linus Hanley MD Sep 03, 2017 10:04
[2017-09-03] MEDS: EPOETIN ALFA 10,000 UNITS/ML VIAL IV PUSH PRN (10:52)
[2017-09-03] MEDS: GENTAMICIN SULFATE 20 MG/2 ML VIAL OTHER PRN (10:52)
[2017-09-03] MEDS: HEPARIN SODIUM - IV 10,000 UNITS/10 ML VIAL PRN (10:52)
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
[2017-09-03] MEDS: POLYETHYLENE GLYCOL 17 GM PKG PO SCH (13:45)
[2017-09-03] MEDS: METOPROLOL TARTRATE 100 MG TAB PO SCH ×2 (13:45→21:24)
[2017-09-03] MEDS: hydrALAZINE HCL 25 MG TAB PO SCH ×2 (13:45→21:23)
[2017-09-03] MEDS: cloNIDine HCL 0.1 MG TAB PO SCH ×2 (13:45→21:23)
[2017-09-03] MEDS: cefTRIAXone INJ 2,000 MG in SODIUM CHLORIDE 0.9% INJ 100 ML IV SCH (13:58)
[2017-09-03 14:54] LABS: HEPATITIS A AB IGM NEGATIVE (NEGATIVE); HEPATITIS B CORE AB IGM NEGATIVE (NEGATIVE); HEPATITIS B SURFACE ANTIGEN NEGATIVE (NEGATIVE); HEPATITIS C AB IgG NEGATIVE (NEGATIVE)
[2017-09-03] MEDS: HYDROmorphone HCL PF 2 MG/ML VIAL IV PUSH PRN (21:22)
[2017-09-04] VITALS (7 sets, daily range): BP systolic 131–175; BP diastolic 56–87; PULSE 58–68; RESP 16–21; TEMP 98.3–98.9; O2SAT 94–98
[2017-09-04] MEDS: SODIUM CHLOR 0.45% 1000 ML INJ 1,000 ML IV SCH ×3 (01:26→16:32)
[2017-09-04] MEDS: HYDROmorphone HCL PF 2 MG/ML VIAL IV PUSH PRN (04:19)
[2017-09-04] MEDS: INSULIN ASPART SUPPLEMENTAL SCALE SQ SCH ×4 (08:00→20:28)
[2017-09-04] MEDS: POLYETHYLENE GLYCOL 17 GM PKG PO SCH (09:29)
[2017-09-04] MEDS: cloNIDine HCL 0.1 MG TAB PO SCH ×2 (09:29→20:29)
[2017-09-04] MEDS: METOPROLOL TARTRATE 100 MG TAB PO SCH ×2 (09:29→20:29)
[2017-09-04] MEDS: SODIUM CHLORIDE 0.9% FLUSH 10 ML FLUSH IV FLUSH SCH ×2 (09:29→20:30)
[2017-09-04] MEDS: hydrALAZINE HCL 25 MG TAB PO SCH ×2 (09:29→20:29)
--- NOTE | 2017-09-04 10:27 | HHI.NPPN ---
Subjective History of Present Illness 71 year old with ESRD L knee sepsis Additional Remarks Resting comfortably no SOB noted. Mental status improving per family. (Shannan Mai) Review of Systems Respiratory Respiratory Remarks denies SOB (Shannan Mai) Cardiovascular Cardiac Remarks Denies CP (Shannan Mai) Gastrointestinal GI Remarks denies Abdominal pain (Shannan Mai) Skin Skin Remarks No rash noted (Shannan Mai) Objective Data Data Vital Signs Date Time Temp Pulse Resp B/P (MAP) Pulse Ox O2 Delivery O2 Flow Rate FiO2 09/04/17 08:06 98.9 64 21 136/67 (90) 94 09/04/17 04:00 98.8 58 16 131/56 (81) 97 09/04/17 04:00 59 09/04/17 04:00 Room Air 09/04/17 00:00 Room Air 09/04/17 00:00 98.6 62 16 168/87 (114) 97 09/04/17 00:00 63 09/03/17 21:00 Room Air 09/03/17 20:00 68 09/03/17 20:00 99.0 67 16 147/69 (95) 97 09/03/17 16:50 96 21 09/03/17 16:06 98.7 70 21 67/ 94 09/03/17 16:00 60 09/03/17 12:06 98.8 68 21 183/79 (113) 96 (Shannan Mai) -: 09/03/17 0707 09/03/17 0707 Imaging Last Impressions Catheter Placement X-Ray 09/02/17 0000 Signed Impressions: Service Date/Time: August 16:52 - CONCLUSION: Uncomplicated line placement as above. Harsha Ortiz MD Head CT 09/01/17 0000 Signed Impressions: Service Date/Time: Friday, September 01, 2017 19:42 - CONCLUSION: No acute disease. Bashir Kauffman Jr., MD Abdomen X-Ray 09/01/17 0000 Signed Impressions: Service Date/Time: Friday, September 01, 2017 19:30 - CONCLUSION: Normal examination. Bashir Kauffman Jr., MD Chest X-Ray 08/29/17 1350 Signed Impressions: Service Date/Time: Tuesday, August 29, 2017 14:11 - CONCLUSION: No acute disease. Vineet Penaloza MD Knee X-Ray 08/29/17 0000 Signed Impressions: Service Date/Time: Tuesday, August 29, 2017 11:01 - CONCLUSION: 1. Moderate severity osteoarthritic findings with mild lateral compartment narrowing. 2. Large joint effusion. 3. No fracture identified. Montana Meade MD (GellermannShannan M. MARKETING MANAGER) Physical Exam General Appearance: Well Developed, Well Nourished (GellermannShaliniShannan M. MARKETING MANAGER) Neck Neck Exam: Neck Supple (GellermannShaliniShannan M. MARKETING MANAGER) Pulmonary Resp Exam: Clear Bilaterally, Breath Sounds Equal, Decreased Bases (GellermannShaliniShannan M. MARKETING MANAGER) Cardiology CV Exam: Regular, Normal Sinus Rhythm (GellermannShaliniShannan M. MARKETING MANAGER) Gastrointestinal/Abdomen GI Exam: Soft, Non-Tender, Bowel Sounds Present (YulialerShalini riberane M. MARKETING MANAGER) Genitourinary Exam: Flank Non-Tender (GellermannShaliniShannan M. MARKETING MANAGER) Extremeties Extremities Exam: No Edema (GellerbacilioShannan M. MARKETING MANAGER) Assessment/Plan Problem List: (1) ESRD (end stage renal disease) ICD Codes: N18.6 - End stage renal disease Plan: uremic encephalopathy per family mental status is improving. Tolerated dialysis well yesterday. dialysis MWF daughter she showed interest in PD labs pending today (2) Chronic kidney disease, stage 5 ICD Codes: N18.5 - Chronic kidney disease, stage 5 Plan: Avoid nephrotoxic agents. Avoid Gadolinium. Monitor potassium, other electrolytes, acid base status. (3) Type 2 diabetes mellitus with diabetic chronic kidney disease ICD Codes: E11.22 - Type 2 diabetes mellitus with diabetic chronic kidney disease Plan: Monitor BS insulin coverage maintain blood glucose between 140 and 180 (4) HTN (hypertension) ICD Codes: I10 - Essential (primary) hypertension Plan: Blood pressure well controlled continue Norvasc, clonidine, hydralazine, and metoprolol (5) Knee effusion, left ICD Codes: M25.462 - Effusion, left knee Status: Acute Plan: s/p arthrocentesis. Seen by ortho. septic (Shannan Mai) Problem List: (1) ESRD (end stage renal disease) ICD Codes: N18.6 - End stage renal disease Plan: uremic encephalopathy per family mental status is improving. Tolerated dialysis well yesterday. dialysis MWF Has been passing the urine. Follow the urine out put and BMP. D/W the daughter. (2) Chronic kidney disease, stage 5 ICD Codes: N18.5 - Chronic kidney disease, stage 5 Plan: Avoid nephrotoxic agents. Avoid Gadolinium. Monitor potassium, other electrolytes, acid base status. (3) Type 2 diabetes mellitus with diabetic chronic kidney disease ICD Codes: E11.22 - Type 2 diabetes mellitus with diabetic chronic kidney disease Plan: Monitor BS insulin coverage maintain blood glucose between 140 and 180 (4) HTN (hypertension) ICD Codes: I10 - Essential (primary) hypertension Plan: Blood pressure well controlled continue Norvasc, clonidine, hydralazine, and metoprolol (5) Knee effusion, left ICD Codes: M25.462 - Effusion, left knee Status: Acute Plan: s/p arthrocentesis. Seen by ortho. septic (David Randolph MD) Shannan Mai Sep 04, 2017 10:27 David Randolph MD Sep 04, 2017 16:51
[2017-09-04 10:44] LABS: BICARBONATE 24.8 MEQ/L (21.0-32.0); CALCIUM 8.1 MG/DL (8.5-10.1); CREATININE 3.9 MG/DL (0.50-1.00); MAGNESIUM 2.6 MG/DL (1.5-2.5)
[2017-09-04] MEDS: cefTRIAXone INJ 2,000 MG in SODIUM CHLORIDE 0.9% INJ 100 ML IV SCH (12:37)
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
[2017-09-04] MEDS: cloNIDine HCL 0.1 MG TAB PO PRN (17:37)
[2017-09-05] VITALS (9 sets, daily range): BP systolic 69–162; BP diastolic 64–71; PULSE 55–67; RESP 17–20; TEMP 98–98.6; O2SAT 95–98
[2017-09-05] MEDS: ACETAMINOPHEN 325 MG TAB PO PRN ×3 (02:33→19:10)
[2017-09-05] MEDS: INSULIN ASPART SUPPLEMENTAL SCALE SQ SCH ×4 (08:37→21:00)
[2017-09-05] MEDS: METOPROLOL TARTRATE 100 MG TAB PO SCH ×2 (08:37→21:44)
[2017-09-05] MEDS: POLYETHYLENE GLYCOL 17 GM PKG PO SCH (08:38)
[2017-09-05] MEDS: hydrALAZINE HCL 25 MG TAB PO SCH ×2 (08:38→21:44)
[2017-09-05] MEDS: cloNIDine HCL 0.1 MG TAB PO SCH ×2 (08:38→21:44)
[2017-09-05] MEDS: SODIUM CHLORIDE 0.9% FLUSH 10 ML FLUSH IV FLUSH SCH ×2 (08:38→21:00)
--- NOTE | 2017-09-05 10:20 | HHI.NPPN ---
Subjective History of Present Illness 71 year old with ESRD L knee sepsis Additional Remarks Mental status improving. Denies SOB. Mild edema noted (Shannan Mai) Review of Systems Respiratory Respiratory Remarks denies SOB (Shannan Mai) Cardiovascular Cardiac Remarks Denies CP (Shannan Mai) Gastrointestinal GI Remarks denies Abdominal pain (Shannan Mai) Skin Skin Remarks No rash noted (Shannan Mai) Objective Data Data Vital Signs Date Time Temp Pulse Resp B/P (MAP) Pulse Ox O2 Delivery O2 Flow Rate FiO2 09/05/17 09:05 Room Air 09/05/17 08:04 98.1 62 20 148/65 (92) 97 09/05/17 08:00 63 09/05/17 04:00 98.0 59 19 161/71 (101) 98 09/05/17 04:00 60 09/05/17 00:00 98.6 57 17 145/64 (91) 98 09/05/17 00:00 56 09/05/17 00:00 Room Air 09/04/17 21:09 21 09/04/17 20:40 Room Air 09/04/17 20:00 98.4 63 18 151/67 (95) 94 09/04/17 20:00 60 09/04/17 16:05 98.5 68 21 175/77 (109) 98 09/04/17 16:00 Room Air 09/04/17 14:00 Room Air 09/04/17 13:03 Room Air 09/04/17 12:05 98.3 63 20 160/72 (101) 97 09/04/17 10:24 21 (Shannan Mai) -: 09/03/17 0707 09/04/17 1010 Imaging Last Impressions Catheter Placement X-Ray 09/02/17 0000 Signed Impressions: Service Date/Time: August 16:52 - CONCLUSION: Uncomplicated line placement as above. Harsha Ortiz MD Head CT 09/01/17 0000 Signed Impressions: Service Date/Time: Friday, September 01, 2017 19:42 - CONCLUSION: No acute disease. Bashir Kauffman Jr., MD Abdomen X-Ray 09/01/17 0000 Signed Impressions: Service Date/Time: Friday, September 01, 2017 19:30 - CONCLUSION: Normal examination. Bashir Kauffman Jr., MD Chest X-Ray 08/29/17 1350 Signed Impressions: Service Date/Time: Tuesday, August 29, 2017 14:11 - CONCLUSION: No acute disease. Vineet Penaloza MD Knee X-Ray 08/29/17 0000 Signed Impressions: Service Date/Time: Tuesday, August 29, 2017 11:01 - CONCLUSION: 1. Moderate severity osteoarthritic findings with mild lateral compartment narrowing. 2. Large joint effusion. 3. No fracture identified. Montana Meade MD (Gellermann,Shannan M. ELEMENTARY ELL TEACHER) Physical Exam General Appearance: Well Developed, Well Nourished (Gellermann,Shannan M. ELEMENTARY ELL TEACHER) Neck Neck Exam: Neck Supple (Gellermann,Shannan M. ELEMENTARY ELL TEACHER) Pulmonary Resp Exam: Clear Bilaterally, Breath Sounds Equal, Decreased Bases (Gellermann,Shannan M. ELEMENTARY ELL TEACHER) Cardiology CV Exam: Regular, Normal Sinus Rhythm (Gellermann,Shannan M. ELEMENTARY ELL TEACHER) Gastrointestinal/Abdomen GI Exam: Soft, Non-Tender, Bowel Sounds Present (Gellermann,Shannan M. ELEMENTARY ELL TEACHER) Genitourinary Exam: Flank Non-Tender (Gellermann,Shannan M. ELEMENTARY ELL TEACHER) Extremeties Extremities Exam: No Edema (Gellermann,Shannan M. ELEMENTARY ELL TEACHER) Assessment/Plan Problem List: (1) ESRD (end stage renal disease) ICD Codes: N18.6 - End stage renal disease Plan: uremic encephalopathy improving but not baseline dialysis MWF Plan for tomorrow Has been passing the urine. Follow the urine out put and BMP. D/W son in law Dr. Bangura to follow in AM (2) Chronic kidney disease, stage 5 ICD Codes: N18.5 - Chronic kidney disease, stage 5 Plan: Avoid nephrotoxic agents. Avoid Gadolinium. Monitor potassium, other electrolytes, acid base status. (3) Type 2 diabetes mellitus with diabetic chronic kidney disease ICD Codes: E11.22 - Type 2 diabetes mellitus with diabetic chronic kidney disease Plan: BS well controlled overnight insulin coverage maintain blood glucose between 140 and 180 (4) HTN (hypertension) ICD Codes: I10 - Essential (primary) hypertension Plan: Blood pressure well controlled continue Norvasc, clonidine, hydralazine, and metoprolol (5) Knee effusion, left ICD Codes: M25.462 - Effusion, left knee Status: Acute Plan: s/p arthrocentesis. Seen by orthoSaritha farias (Shannan Mai) Problem List: (1) ESRD (end stage renal disease) ICD Codes: N18.6 - End stage renal disease Plan: uremic encephalopathy improving but not baseline dialysis MWF Plan for tomorrow Has been passing the urine. Follow the urine out put and BMP. D/W daughter at bed side. Will need PermCath if not better. Dr. Bangura to follow in AM (2) Chronic kidney disease, stage 5 ICD Codes: N18.5 - Chronic kidney disease, stage 5 Plan: Avoid nephrotoxic agents. Avoid Gadolinium. Monitor potassium, other electrolytes, acid base status. (3) Type 2 diabetes mellitus with diabetic chronic kidney disease ICD Codes: E11.22 - Type 2 diabetes mellitus with diabetic chronic kidney disease Plan: BS well controlled overnight insulin coverage maintain blood glucose between 140 and 180 (4) HTN (hypertension) ICD Codes: I10 - Essential (primary) hypertension Plan: Blood pressure well controlled continue Norvasc, clonidine, hydralazine, and metoprolol (5) Knee effusion, left ICD Codes: M25.462 - Effusion, left knee Status: Acute Plan: s/p arthrocentesis. Seen by ortho. farias (David Randolph MD) Shannan Mai Sep 05, 2017 10:20 David Randolph MD Sep 05, 2017 13:55
[2017-09-05] MEDS: cefTRIAXone INJ 2,000 MG in SODIUM CHLORIDE 0.9% INJ 100 ML IV SCH (10:33)
[2017-09-05] MEDS: SODIUM CHLOR 0.45% 1000 ML INJ 1,000 ML IV SCH (16:22)
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
[2017-09-06] VITALS (8 sets, daily range): BP systolic 133–196; BP diastolic 56–78; PULSE 54–72; RESP 16–18; TEMP 97.3–98.7; O2SAT 93–99
[2017-09-06 07:46] LABS: AUTOMATED NEUTROPHIL # 9.3 TH/MM3 (1.8-7.7); BASOPHIL # 0.1 TH/MM3 (0-0.2); BASOPHIL % 0.5 % (0.0-2.0); EOSINOPHIL # 0.1 TH/MM3 (0-0.4); EOSINOPHIL % 1.2 % (0.0-4.0); HEMATOCRIT 32.3 % (35.0-46.0); HEMOGLOBIN 10.7 GM/DL (11.6-15.3); LYMPH % 12.2 % (9.0-44.0); LYMPHOCYTE # 1.4 TH/MM3 (1.0-4.8); MEAN CELL VOLUME 91.8 FL (80.0-100.0); MEAN CORPUSCULAR HEMOGLOBIN 30.4 PG (27.0-34.0); MEAN CORPUSCULAR HGB CONC 33.1 % (32.0-36.0); MEAN PLATELET VOLUME 8.4 FL (7.0-11.0); MONO % 6.8 % (0.0-8.0); MONOCYTE # 0.8 TH/MM3 (0-0.9); NEUT % 79.3 % (16.0-70.0); PLATELET COUNT 407 TH/MM3 (150-450); RED BLOOD COUNT 3.52 MIL/MM3 (4.00-5.30); RED CELL DISTRIBUTION WIDTH 15.7 % (11.6-17.2); WHITE BLOOD COUNT 11.7 TH/MM3 (4.0-11.0)
[2017-09-06] MEDS: SODIUM CHLORIDE 0.9% FLUSH 10 ML FLUSH IV FLUSH SCH ×2 (08:00→21:14)
[2017-09-06] MEDS: POLYETHYLENE GLYCOL 17 GM PKG PO SCH (08:00)
[2017-09-06] MEDS: INSULIN ASPART SUPPLEMENTAL SCALE SQ SCH ×4 (08:01→21:00)
[2017-09-06 08:53] LABS: BLOOD UREA NITROGEN 70 MG/DL (7-18); CREATININE 3.71 MG/DL (0.50-1.00); GLOMERULAR FILTRATION RATE 15 ML/MIN (>89)
[2017-09-06 08:54] LABS: BICARBONATE 21.2 MEQ/L (21.0-32.0); CALCIUM 8.1 MG/DL (8.5-10.1); CHLORIDE 100 MEQ/L (98-107); GLUCOSE,RANDOM 129 MG/DL (74-106); MAGNESIUM 2.8 MG/DL (1.5-2.5); PHOSPHORUS 4.7 MG/DL (2.5-4.9); SODIUM (NA) 136 MEQ/L (136-145); TROPONIN I LESS THAN 0.02 NG/ML (0.02-0.05)
[2017-09-06] MEDS: GENTAMICIN SULFATE 20 MG/2 ML VIAL OTHER PRN (11:48)
[2017-09-06] MEDS: HEPARIN SODIUM - IV 10,000 UNITS/10 ML VIAL PRN (11:49)
[2017-09-06] MEDS: EPOETIN ALFA 10,000 UNITS/ML VIAL IV PUSH PRN (11:50)
--- NOTE | 2017-09-06 12:38 | HHI.NPPN ---
Subjective History of Present Illness 71 year old with ESRD L knee sepsis Additional Remarks Mental status improving. Denies SOB. Mild edema noted Review of Systems Respiratory Respiratory Remarks denies SOB Cardiovascular Cardiac Remarks Denies CP Gastrointestinal GI Remarks denies Abdominal pain Skin Skin Remarks No rash noted Objective Data Data 09/06/17 09/07/17 19:00 07:00 Output Total 2000 ml Balance -2000 ml Hemodialysis 2000 ml Vital Signs Date Time Temp Pulse Resp B/P (MAP) Pulse Ox O2 Delivery O2 Flow Rate FiO2 09/06/17 08:00 97.6 71 18 196/72 (113) 98 09/06/17 08:00 Room Air 2.00 21 09/06/17 08:00 66 09/06/17 07:06 98.7 61 18 178/78 (111) 99 09/06/17 05:11 72 09/06/17 04:00 Room Air 09/06/17 00:00 Room Air 09/06/17 00:00 98.0 57 16 142/67 (92) 93 09/06/17 00:00 54 09/05/17 20:00 Room Air 09/05/17 20:00 98.3 67 18 155/71 (99) 95 09/05/17 20:00 64 09/05/17 17:00 Room Air 09/05/17 16:06 98.4 61 20 162/71 (101) 95 09/05/17 16:00 55 09/05/17 12:39 59 -: 09/06/17 0630 09/06/17 0630 Physical Exam General Appearance: Well Developed, Well Nourished Neck Neck Exam: Neck Supple Pulmonary Resp Exam: Clear Bilaterally, Breath Sounds Equal, Decreased Bases Cardiology CV Exam: Regular, Normal Sinus Rhythm Gastrointestinal/Abdomen GI Exam: Soft, Non-Tender, Bowel Sounds Present Genitourinary Exam: Flank Non-Tender Extremeties Extremities Exam: No Edema Assessment/Plan Problem List: (1) ESRD (end stage renal disease) ICD Codes: N18.6 - End stage renal disease Plan: uremic encephalopathy improving but not baseline dialysis MWF Has been passing the urine. Follow the urine out put and BMP. Dialysis proceedings noted UF 2 L (2) Chronic kidney disease, stage 5 ICD Codes: N18.5 - Chronic kidney disease, stage 5 Plan: Avoid nephrotoxic agents. Avoid Gadolinium. Monitor potassium, other electrolytes, acid base status. (3) Type 2 diabetes mellitus with diabetic chronic kidney disease ICD Codes: E11.22 - Type 2 diabetes mellitus with diabetic chronic kidney disease Plan: BS well controlled overnight insulin coverage maintain blood glucose between 140 and 180 (4) HTN (hypertension) ICD Codes: I10 - Essential (primary) hypertension Status: Chronic Plan: Blood pressure well controlled continue Norvasc, clonidine, hydralazine, and metoprolol (5) Knee effusion, left ICD Codes: M25.462 - Effusion, left knee Status: Acute Plan: s/p arthrocentesis. Seen by ortho. Linus Aly MD Sep 06, 2017 12:38
[2017-09-06] MEDS: cefTRIAXone INJ 2,000 MG in SODIUM CHLORIDE 0.9% INJ 100 ML IV SCH (12:47)
[2017-09-06] MEDS: cloNIDine HCL 0.1 MG TAB PO SCH ×2 (12:50→21:14)
[2017-09-06] MEDS: METOPROLOL TARTRATE 100 MG TAB PO SCH ×2 (12:50→21:14)
[2017-09-06] MEDS: hydrALAZINE HCL 25 MG TAB PO SCH ×2 (12:50→21:14)
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
--- NOTE | 2017-09-06 14:30 | HHI.IDPN ---
Subjective Subjective Remarks co some pain in L knee sp vas cath placement no new problems Antibiotics CFTX Allergies: Coded Allergies: No Known Allergies (Unverified Allergy, Unknown, 08/29/17) Objective . Vital Signs Date Time Temp Pulse Resp B/P (MAP) Pulse Ox O2 Delivery O2 Flow Rate FiO2 09/06/17 12:00 97.3 65 18 153/70 (97) 96 09/06/17 08:00 97.6 71 18 196/72 (113) 98 09/06/17 08:00 Room Air 2.00 21 09/06/17 08:00 66 09/06/17 07:06 98.7 61 18 178/78 (111) 99 09/06/17 05:11 72 09/06/17 04:00 Room Air 09/06/17 00:00 Room Air 09/06/17 00:00 98.0 57 16 142/67 (92) 93 09/06/17 00:00 54 09/05/17 20:00 Room Air 09/05/17 20:00 98.3 67 18 155/71 (99) 95 09/05/17 20:00 64 09/05/17 17:00 Room Air 09/05/17 16:06 98.4 61 20 162/71 (101) 95 09/05/17 16:00 55 09/06/17 09/06/17 09/07/17 15:00 23:00 07:00 Output Total 2000 ml Balance -2000 ml Hemodialysis 2000 ml . Laboratory Tests Test 09/06/17 06:30 White Blood Count 11.7 TH/MM3 Red Blood Count 3.52 MIL/MM3 Hemoglobin 10.7 GM/DL Hematocrit 32.3 % Mean Corpuscular Volume 91.8 FL Mean Corpuscular Hemoglobin 30.4 PG Mean Corpuscular Hemoglobin Concent 33.1 % Red Cell Distribution Width 15.7 % Platelet Count 407 TH/MM3 Mean Platelet Volume 8.4 FL Neutrophils (%) (Auto) 79.3 % Lymphocytes (%) (Auto) 12.2 % Monocytes (%) (Auto) 6.8 % Eosinophils (%) (Auto) 1.2 % Basophils (%) (Auto) 0.5 % Neutrophils # (Auto) 9.3 TH/MM3 Lymphocytes # (Auto) 1.4 TH/MM3 Monocytes # (Auto) 0.8 TH/MM3 Eosinophils # (Auto) 0.1 TH/MM3 Basophils # (Auto) 0.1 TH/MM3 CBC Comment DIFF FINAL Differential Comment Laboratory Tests Test 09/05/17 18:59 09/06/17 00:32 09/06/17 06:30 Troponin I LESS THAN 0.02 NG/ML LESS THAN 0.02 NG/ML LESS THAN 0.02 NG/ML Blood Urea Nitrogen 70 MG/DL Creatinine 3.71 MG/DL Random Glucose 129 MG/DL Calcium Level 8.1 MG/DL Phosphorus Level 4.7 MG/DL Magnesium Level 2.8 MG/DL Sodium Level 136 MEQ/L Potassium Level 3.9 MEQ/L Chloride Level 100 MEQ/L Carbon Dioxide Level 21.2 MEQ/L Anion Gap 15 MEQ/L Estimat Glomerular Filtration Rate 15 ML/MIN Imaging Last Im Last Impressions Catheter Placement X-Ray 09/02/17 0000 Signed Impressions: Service Date/Time: August 16:52 - CONCLUSION: Uncomplicated line placement as above. Harsha Ortiz MD Head CT 09/01/17 0000 Signed Impressions: Service Date/Time: Friday, September 01, 2017 19:42 - CONCLUSION: No acute disease. Bashir Kauffman Jr., MD Abdomen X-Ray 09/01/17 0000 Signed Impressions: Service Date/Time: Friday, September 01, 2017 19:30 - CONCLUSION: Normal examination. Bashir Kauffman Jr., MD Chest X-Ray 08/29/17 1350 Signed Impressions: Service Date/Time: Tuesday, August 29, 2017 14:11 - CONCLUSION: No acute disease. Vineet Penaloza MD Knee X-Ray 08/29/17 0000 Signed Impressions: Service Date/Time: Tuesday, August 29, 2017 11:01 - CONCLUSION: 1. Moderate severity osteoarthritic findings with mild lateral compartment narrowing. 2. Large joint effusion. 3. No fracture identified. Montana Meade MD Physical Exam CONSTITUTIONAL/GENERAL: This is a morbidly obese patient, in no apparent distress. TUBES/LINES/DRAINS: R IJ Vascath in place SKIN: No jaundice, rashes, or lesions. Skin temperature appropriate. Not diaphoretic. CARDIOVASCULAR: Regular rate and rhythm without murmurs, gallops, or rubs. No JVD. Peripheral pulses symmetric. RESPIRATORY/CHEST: Symmetric, unlabored respirations. Clear to auscultation. Breath sounds equal bilaterally. No wheezes, rales, or rhonchi. GASTROINTESTINAL: Abdomen soft, non-tender, nondistended. No hepato-splenomegaly , or palpable masses. No guarding. Bowel sounds present. GENITOURINARY: Without palpable bladder distension. MUSCULOSKELETAL: Extremities without clubbing, cyanosis, + edema. LLE with clean, well approximated incision healing nicely zacarias in minimal edema no erythema NEUROLOGICAL: appears lethargic, but arousable PSYCHIATRIC: calm cooperative b Assessment & Plan Remarks Left knee septic arthritis, MDRO Strep pneumo sp I+D CKD, stage 5 - HD started Mild leukocytosis fu WBC cont CFTX x 4 weeks As o/p we can RX her with vancomycin with HD x 4 weeks will see as needed, please call if any new issues Sierra Lewis MD Sep 06, 2017 14:30
[2017-09-06] MEDS: SODIUM CHLOR 0.45% 1000 ML INJ 1,000 ML IV SCH (15:32)
[2017-09-06] MEDS: LACTULOSE SYRUP 20 GM/30 ML CUP PO SCH ×2 (16:40→21:14)
--- NOTE | 2017-09-06 19:34 | EKG ---
Date Performed: 09/05/2017 Time Performed: 17:49:52 PTAGE: 71 years EKG: Sinus rhythm MODERATE INTRAVENTRICULAR CONDUCTION DELAY BORDERLINE ECG PREVIOUS TRACING : 08/29/2017 16.44 Since previous tracing, no significant change noted DOCTOR: Eufemia Quinonez Interpretating Date/Time 09/06/2017 19:33:09
[2017-09-07] VITALS (7 sets, daily range): BP systolic 136–175; BP diastolic 61–71; PULSE 58–77; RESP 18–20; TEMP 98.2–98.8; O2SAT 96–99
[2017-09-07] MEDS: ACETAMINOPHEN 325 MG TAB PO PRN ×2 (05:29→12:19)
--- NOTE | 2017-09-07 07:12 | PD.ORT.PN ---
Subjective Subjective Remarks POD 7 s/p I&D left knee patient improving. daughter at bedside. reports that patient is more lucid and improving daily. states that patient is ambulatory to bedside commode and pain controlled Objective Vitals Vital Signs Date Time Temp Pulse Resp B/P (MAP) Pulse Ox O2 Delivery O2 Flow Rate FiO2 09/07/17 04:00 Room Air 2.00 21 09/07/17 00:00 Room Air 2.00 21 09/07/17 00:00 61 09/06/17 20:52 93 09/06/17 20:00 Room Air 2.00 21 09/06/17 16:00 98.5 68 18 149/66 (93) 96 09/06/17 16:00 65 09/06/17 12:00 97.3 65 18 153/70 (97) 96 09/06/17 08:00 97.6 71 18 196/72 (113) 98 09/06/17 08:00 Room Air 2.00 21 09/06/17 08:00 66 I/O 09/06/17 09/06/17 09/06/17 09/07/17 09/07/17 09/07/17 07:00 15:00 23:00 07:00 15:00 23:00 Intake Total 100 ml 1000 ml Output Total 2000 ml Balance -1900 ml 1000 ml IV Total 100 ml 1000 ml Hemodialysis 2000 ml Result Diagram: 09/06/17 0630 09/06/17 0630 Objective Remarks Left lower extremity: dressings clean and dry. intact. nvi Assessment & Plan Problem List: (1) Dehydration with hypernatremia ICD Codes: E87.0 - Hyperosmolality and hypernatremia (2) Pseudogout of knee ICD Codes: M11.269 - Other chondrocalcinosis, unspecified knee (3) Knee effusion, left ICD Codes: M25.462 - Effusion, left knee Status: Acute Assessment and Plan 1) Septic left knee status post I&D - POD 7 Daily dressing changes - xeroform/primapore IV antibiotics per infectious disease medical mgmt Physical therapy weightbearing as tolerated left lower extremity and passive and active range of motion of knee Continue to work toward discharge plan f/u with Barry or PA in 2 weeks Floyd Monae/Bullet Slug Casting Machine Operator PA Sep 07, 2017 07:12
[2017-09-07 09:00] LABS: BICARBONATE 27.6 MEQ/L (21.0-32.0); CREATININE 3.01 MG/DL (0.50-1.00)
[2017-09-07] MEDS: INSULIN ASPART SUPPLEMENTAL SCALE SQ SCH ×4 (09:31→20:32)
[2017-09-07] MEDS: METOPROLOL TARTRATE 100 MG TAB PO SCH ×2 (09:32→20:28)
[2017-09-07] MEDS: SODIUM CHLORIDE 0.9% FLUSH 10 ML FLUSH IV FLUSH SCH ×2 (09:32→20:29)
[2017-09-07] MEDS: LACTULOSE SYRUP 20 GM/30 ML CUP PO SCH ×2 (09:32→20:29)
[2017-09-07] MEDS: cloNIDine HCL 0.1 MG TAB PO SCH ×2 (09:32→20:29)
[2017-09-07] MEDS: hydrALAZINE HCL 25 MG TAB PO SCH ×2 (09:32→20:29)
[2017-09-07] MEDS: POLYETHYLENE GLYCOL 17 GM PKG PO SCH (09:32)
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
[2017-09-07] MEDS ORDERED: POTASSIUM CHLORIDE 20 MEQ CONTROLLED RELEASE TAB PO ONE (10:00)
[2017-09-07] MEDS: cefTRIAXone INJ 2,000 MG in SODIUM CHLORIDE 0.9% INJ 100 ML IV SCH (12:17)
--- NOTE | 2017-09-07 14:42 | HHI.NPPN ---
Subjective History of Present Illness 71 year old with ESRD L knee sepsis Additional Remarks Mental status improving. Denies SOB. Mild edema noted Review of Systems Respiratory Respiratory Remarks denies SOB Cardiovascular Cardiac Remarks Denies CP Gastrointestinal GI Remarks denies Abdominal pain Skin Skin Remarks No rash noted Objective Data Data Vital Signs Date Time Temp Pulse Resp B/P (MAP) Pulse Ox O2 Delivery O2 Flow Rate FiO2 09/07/17 14:18 Room Air 09/07/17 12:00 98.2 58 20 149/68 (95) 99 09/07/17 08:00 59 09/07/17 08:00 98.5 63 20 175/71 (105) 96 09/07/17 04:00 98.8 67 18 136/63 (87) 96 09/07/17 04:00 Room Air 2.00 21 09/07/17 00:00 Room Air 2.00 21 09/07/17 00:00 98.6 70 18 169/68 (101) 97 09/07/17 00:00 61 09/06/17 20:52 93 09/06/17 20:00 Room Air 2.00 21 09/06/17 20:00 98.1 57 18 133/56 (81) 94 09/06/17 16:00 98.5 68 18 149/66 (93) 96 09/06/17 16:00 65 -: 09/06/17 0630 09/07/17 0635 Physical Exam General Appearance: Well Developed, Well Nourished Neck Neck Exam: Neck Supple Pulmonary Resp Exam: Clear Bilaterally, Breath Sounds Equal, Decreased Bases Cardiology CV Exam: Regular, Normal Sinus Rhythm Gastrointestinal/Abdomen GI Exam: Soft, Non-Tender, Bowel Sounds Present Genitourinary Exam: Flank Non-Tender Extremeties Extremities Exam: No Edema Assessment/Plan Problem List: (1) ESRD (end stage renal disease) ICD Codes: N18.6 - End stage renal disease Plan: improved K low replaced, remove K restriction from diet AVF needed dialysis MWF Plan Has been passing the urine. Follow the urine out put and BMP. (2) Chronic kidney disease, stage 5 ICD Codes: N18.5 - Chronic kidney disease, stage 5 Plan: Avoid nephrotoxic agents. Avoid Gadolinium. Monitor potassium, other electrolytes, acid base status. (3) Type 2 diabetes mellitus with diabetic chronic kidney disease ICD Codes: E11.22 - Type 2 diabetes mellitus with diabetic chronic kidney disease Plan: BS well controlled overnight insulin coverage maintain blood glucose between 140 and 180 (4) HTN (hypertension) ICD Codes: I10 - Essential (primary) hypertension Status: Chronic Plan: Blood pressure well controlled continue Norvasc, clonidine, hydralazine, and metoprolol (5) Knee effusion, left ICD Codes: M25.462 - Effusion, left knee Status: Acute Plan: s/p arthrocentesis. Seen by ortho. Linus Aly MD Sep 07, 2017 14:42
[2017-09-07] MEDS: SODIUM CHLOR 0.45% 1000 ML INJ 1,000 ML IV SCH (15:23)
--- NOTE | 2017-09-07 17:29 | PD.VS.CON ---
History of Present Illness Chief Complaint: ESRD, need for HD access Consult Requested by: Dr. Bangura History of Present Illness 71 yo female with ESRD new to HD. Admitted over a week ago with L knee pain and concern for septic arthritis, s/p drainage. Poor mobility at present but according to the daughter was living independently and driving previously. Has R chest catheter. RIGHT handed and no prior access attempts. Past/Family/Social History Past Medical History ESRD breast CA L breast DM HTN obesity OA Past Surgical History L lumpectomy and axillary LND LYNN Social History lives independently no tobacco Family History her brother is on HD Home Medications Reported Medications Amlodipine (Amlodipine) 10 Mg Tab, 10 MG PO DAILY for Blood Pressure Management , #30 TAB 0 Refills 08/29/17 Timolol Opth Drops (Timoptic Opth Drops) Unknown Strength Soln, EACH EYE BID for Glaucoma, #1 BOTTLE 0 Refills 08/29/17 Calcitriol (Calcitriol) 0.25 Mcg Cap, 0.25 MCG PO DAILY for Calcium Supplement, #30 CAP 0 Refills 08/29/17 Hydralazine HCl (Hydralazine HCl) 25 Mg Tablet, 25 MG PO BID for Blood Pressure Management, #60 TAB 0 Refills 08/29/17 Insulin Aspart Inj (Novolog Inj) 1,000 Unit/10 Ml Vial, 0 SQ DIRECTED for Blood Sugar Management, #10 ML 0 Refills Sliding Scale as directed. 08/29/17 Insulin Detemir Inj (Levemir Inj) 1,000 unit/ 10 ML Vial, 80 UNITS SQ DAILY for Blood Sugar Management, VIAL 0 Refills Do not mix with any other Insulin. 08/29/17 Hydrochlorothiazide (Hydrochlorothiazide) 25 Mg Tab, 25 MG PO DAILY, #30 TAB 0 Refills 08/29/17 Lisinopril (Lisinopril) 40 Mg Tab, 40 MG PO DAILY for Blood Pressure Management , #30 TAB 0 Refills 08/29/17 Clonidine (Clonidine) 0.1 Mg Tab, 0.1 MG PO BID for Blood Pressure Management, # 60 TAB 0 Refills 08/29/17 Losartan (Losartan) 100 Mg Tab, 100 MG PO DAILY for Blood Pressure Management, # 30 TAB 0 Refills 08/29/17 Metoprolol Tartrate (Metoprolol Tartrate) 100 Mg Tab, 100 MG PO BID, #60 TAB 0 Refills 08/29/17 Coded Allergies: No Known Allergies (Unverified Allergy, Unknown, 08/29/17) Review of Systems ROS Limitations: Altered Mental Status Physical Exam Vitals/I&O Date Time Temp Pulse Resp B/P (MAP) Pulse Ox O2 Delivery O2 Flow Rate FiO2 09/07/17 16:00 77 09/07/17 14:18 Room Air 09/07/17 12:00 98.2 58 20 149/68 (95) 99 09/07/17 12:00 61 09/07/17 08:00 59 09/07/17 08:00 98.5 63 20 175/71 (105) 96 09/07/17 04:00 98.8 67 18 136/63 (87) 96 09/07/17 04:00 Room Air 2.00 21 09/07/17 00:00 Room Air 2.00 21 09/07/17 00:00 98.6 70 18 169/68 (101) 97 09/07/17 00:00 61 09/06/17 20:52 93 09/06/17 20:00 Room Air 2.00 21 09/06/17 20:00 98.1 57 18 133/56 (81) 94 Neuro: somnolent but conversant HEENT: NC/AT Neck: no JVD but obese Heart: reg rate Lungs: nonlabored breathing Abdomen: obese Vascular: palpable UE pulses Extremities: no UE tissue loss Laboratory Tests Test 09/07/17 06:35 Blood Urea Nitrogen 44 Creatinine 3.01 Random Glucose 166 Calcium Level 8.0 Sodium Level 136 Potassium Level 3.3 Chloride Level 99 Carbon Dioxide Level 27.6 Anion Gap 9 Estimat Glomerular Filtration Rate 19 Date/Time Source Procedure Growth Status 08/31/17 10:30 Fluid Other Fungal Smear - Final NO FUNGAL ELEMENTS SEEN. Resulted 08/31/17 10:30 Fluid Other Fungal Culture - Preliminary NO GROWTH IN 1 WEEK Resulted 08/31/17 10:30 Tissue Knee Fungal Smear - Final NO FUNGAL ELEMENTS SEEN. Resulted 08/31/17 10:30 Tissue Knee Fungal Culture - Preliminary NO GROWTH IN 1 WEEK Resulted Assessment and Plan Plan ESRD, needs HD access. Despite the fact that she is RIGHT handed, she will likely need a R UE access given the axillary lymph node dissection on the LEFT as part of her breast CA treatment. She has altered mental status at present and is somnolent, which the daughter says is not her. I would propose that she continues to get stronger and RTC 1-2 weeks after discharge to discuss HD access options. Vu Hyde MD FACS RPVI acds block 1 operator [facility] - [facility] V[facility] at [facility] [phone] Vu Hyde MD Sep 07, 2017 17:29
[2017-09-08] VITALS (9 sets, daily range): BP systolic 143–161; BP diastolic 67–87; PULSE 59–89; RESP 17–18; TEMP 98.4–98.8; O2SAT 95–100
[2017-09-08] MEDS: SODIUM CHLOR 0.45% 1000 ML INJ 1,000 ML IV SCH (05:49)
[2017-09-08] MEDS: cloNIDine HCL 0.1 MG TAB PO SCH ×2 (08:13→21:28)
[2017-09-08] MEDS: INSULIN ASPART SUPPLEMENTAL SCALE SQ SCH ×4 (08:13→21:00)
[2017-09-08] MEDS: hydrALAZINE HCL 25 MG TAB PO SCH ×2 (08:13→21:28)
[2017-09-08] MEDS: METOPROLOL TARTRATE 100 MG TAB PO SCH ×2 (08:13→21:28)
[2017-09-08] MEDS: POLYETHYLENE GLYCOL 17 GM PKG PO SCH (08:14)
[2017-09-08] MEDS: LACTULOSE SYRUP 20 GM/30 ML CUP PO SCH (08:14)
[2017-09-08] MEDS: SODIUM CHLORIDE 0.9% FLUSH 10 ML FLUSH IV FLUSH SCH ×2 (08:14→21:28)
--- NOTE | 2017-09-08 09:32 | HHI.PR ---
Subjective Remarks in chair; more alert. Objective Vitals more alert heart reg lung cta abd s/nt ext no edema Vital Signs Date Time Temp Pulse Resp B/P (MAP) Pulse Ox O2 Delivery O2 Flow Rate FiO2 09/08/17 08:07 98.4 85 18 161/86 (111) 100 09/08/17 04:00 Room Air 2.00 21 09/08/17 04:00 65 09/08/17 04:00 98.8 68 18 158/85 (109) 97 09/08/17 00:00 98.8 63 18 143/67 (92) 95 09/08/17 00:00 Room Air 2.00 21 09/08/17 00:00 59 09/07/17 20:00 98.7 62 18 148/66 (93) 96 09/07/17 20:00 Room Air 2.00 21 09/07/17 17:50 99 21 09/07/17 16:00 98.2 70 20 160/61 (94) 99 09/07/17 16:00 77 09/07/17 14:18 Room Air 09/07/17 12:00 98.2 58 20 149/68 (95) 99 09/07/17 12:00 61 Result Diagram: 09/06/17 0630 09/07/17 0635 Imaging Last Impressions Catheter Placement X-Ray 09/02/17 0000 Signed Impressions: Service Date/Time: August 16:52 - CONCLUSION: Uncomplicated line placement as above. Harsha Ortiz MD Head CT 09/01/17 0000 Signed Impressions: Service Date/Time: Friday, September 01, 2017 19:42 - CONCLUSION: No acute disease. Bashir Kauffman Jr., MD Abdomen X-Ray 09/01/17 0000 Signed Impressions: Service Date/Time: Friday, September 01, 2017 19:30 - CONCLUSION: Normal examination. Bashir Kauffman Jr., MD Chest X-Ray 08/29/17 1350 Signed Impressions: Service Date/Time: Tuesday, August 29, 2017 14:11 - CONCLUSION: No acute disease. Vineet Penaloza MD Knee X-Ray 08/29/17 0000 Signed Impressions: Service Date/Time: Tuesday, August 29, 2017 11:01 - CONCLUSION: 1. Moderate severity osteoarthritic findings with mild lateral compartment narrowing. 2. Large joint effusion. 3. No fracture identified. Montana Meade MD A/P Problem List: (1) Acute renal failure superimposed on stage 4 chronic kidney disease ICD Codes: N17.9 - Acute kidney failure, unspecified; N18.4 - Chronic kidney disease, stage 4 (severe) Status: Acute Plan: - comgmt with Nephrology - Pt with acute on ckd 4 CKD, improving - Vac Cath placed (09/02) - Pt had HD starting on (09/02) , MWF schedule, - was exhibiting uremic encephalopathy, but improving - will plan for snf after d/c. abx choice will depend on if she needs outpt hd. await decisions per Renal updated family at bedside bmp pending. (2) Knee effusion, left ICD Codes: M25.462 - Effusion, left knee Status: Acute Plan: - comgmt with Orthopedics and ID - Pt is a 71 y/o female with IDDM, HTN, osteoarthritis, and hx of breast cancer who presented to the ED at [facility] on 08/29/17 with complaints of severe left knee pain and swelling. - She reportedly got locked out of her car (08/28/17) and had to stand outside for approximately 2 hours waiting for help. That night she woke up during the night with severe left knee pain and was unable to bear weight on it due to the pain and swelling. - No fever or chills. No reported trauma. - Labs in the ED noted WBC count 11.4, Cr 4.25/BUN 73, GFR 12. - Knee Xray noted moderate severity osteoarthritis with mild lateral compartment narrowing and large joint effusion. - The knee was aspirated in the ED and synovial fluid noted WBC count 19,600. - Synovial Fluid culture (08/29) --> Strep pneumoniae - She was given pain medication in the ED and Vancomycin. - zyvox (08/31 - 09/01) - Rocephin (09/01 - present) - d/c abx per ID - Pt underwent I&D with Dr. Jose E Reddy (08/31/17) - synovial fluid studies (08/31) -->strep pna - Roxicodone 15mg Q6H PRN - Supportive care - PT following and pt recommended rehab placement at the end of this hospitalization - SCDs for DVT prophylaxis (3) HTN (hypertension) ICD Codes: I10 - Essential (primary) hypertension Status: Chronic Plan: - Pt was resumed, on Hydralaziner, Norvasc, Metoprolol, and Clonidine - Lisinopril, Losartan, and HCTZ are held - Monitor - Clonidine PRN (4) Diabetes mellitus ICD Codes: E11.9 - Type 2 diabetes mellitus without complications Status: Chronic Plan: - NovoLog SSI - Accu checks (5) Confusion ICD Codes: R41.0 - Disorientation, unspecified Status: Acute Plan: - uremic encephalopathy -> improving - CT brain (09/01) --> NO acute findings - ammonia, RPR, TSH, folate --> WNL Problem Qualifiers (1) Diabetes mellitus: Qualified Codes: E11.8 - Type 2 diabetes mellitus with unspecified complications; 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
[2017-09-08] MEDS: HEPARIN SODIUM - IV 10,000 UNITS/10 ML VIAL PRN (13:06)
[2017-09-08] MEDS: GENTAMICIN SULFATE 20 MG/2 ML VIAL OTHER PRN (13:06)
[2017-09-08] MEDS: EPOETIN ALFA 10,000 UNITS/ML VIAL IV PUSH PRN (13:06)
[2017-09-08 13:43] LABS: BICARBONATE 28.5 MEQ/L (21.0-32.0); CALCIUM 7.9 MG/DL (8.5-10.1); CREATININE 3.22 MG/DL (0.50-1.00)
--- NOTE | 2017-09-08 13:49 | HHI.NPPN ---
Subjective History of Present Illness 71 year old with ESRD L knee sepsis Additional Remarks Mental status improving. Denies SOB. Mild edema noted Review of Systems Respiratory Respiratory Remarks denies SOB Cardiovascular Cardiac Remarks Denies CP Gastrointestinal GI Remarks denies Abdominal pain Skin Skin Remarks No rash noted Objective Data Data 09/08/17 09/09/17 19:00 07:00 Output Total 2000 ml Balance -2000 ml Hemodialysis 2000 ml Vital Signs Date Time Temp Pulse Resp B/P (MAP) Pulse Ox O2 Delivery O2 Flow Rate FiO2 09/08/17 08:21 Room Air 09/08/17 08:07 98.4 85 18 161/86 (111) 100 09/08/17 08:00 89 09/08/17 04:00 Room Air 2.00 21 09/08/17 04:00 65 09/08/17 04:00 98.8 68 18 158/85 (109) 97 09/08/17 00:00 98.8 63 18 143/67 (92) 95 09/08/17 00:00 Room Air 2.00 21 09/08/17 00:00 59 09/07/17 20:00 98.7 62 18 148/66 (93) 96 09/07/17 20:00 Room Air 2.00 21 09/07/17 17:50 99 21 09/07/17 16:00 98.2 70 20 160/61 (94) 99 09/07/17 16:00 77 09/07/17 14:18 Room Air -: 09/06/17 0630 09/08/17 1000 Physical Exam General Appearance: Well Developed, Well Nourished Neck Neck Exam: Neck Supple Pulmonary Resp Exam: Clear Bilaterally, Breath Sounds Equal, Decreased Bases Cardiology CV Exam: Regular, Normal Sinus Rhythm Gastrointestinal/Abdomen GI Exam: Soft, Non-Tender, Bowel Sounds Present Genitourinary Exam: Flank Non-Tender Extremeties Extremities Exam: No Edema Assessment/Plan Problem List: (1) ESRD (end stage renal disease) ICD Codes: N18.6 - End stage renal disease Plan: improved K low replaced, remove K restriction from diet AVF needed dialysis MWF Plan at dialysis UF 2 L Has been passing the urine. Follow the urine out put and BMP. (2) Chronic kidney disease, stage 5 ICD Codes: N18.5 - Chronic kidney disease, stage 5 Plan: Avoid nephrotoxic agents. Avoid Gadolinium. Monitor potassium, other electrolytes, acid base status. (3) Type 2 diabetes mellitus with diabetic chronic kidney disease ICD Codes: E11.22 - Type 2 diabetes mellitus with diabetic chronic kidney disease Plan: BS well controlled overnight insulin coverage maintain blood glucose between 140 and 180 (4) HTN (hypertension) ICD Codes: I10 - Essential (primary) hypertension Status: Chronic Plan: Blood pressure well controlled continue Norvasc, clonidine, hydralazine, and metoprolol (5) Knee effusion, left ICD Codes: M25.462 - Effusion, left knee Status: Acute Plan: s/p arthrocentesis. Seen by ortho. Linus Aly MD Sep 08, 2017 13:49
[2017-09-08] MEDS: cefTRIAXone INJ 2,000 MG in SODIUM CHLORIDE 0.9% INJ 100 ML IV SCH (14:30)
[2017-09-08] MEDS: PARICALCITOL 1 MCG CAP PO SCH (15:36)
[2017-09-08] MEDS ORDERED: ceFAZolin 2 GM PREMIX 50 ML IV SCH (16:00)
[2017-09-08] MEDS: ACETAMINOPHEN 325 MG TAB PO PRN (17:48)
[2017-09-08 18:50] LABS: INTERNATIONAL NORMALIZED RATIO 1.1 RATIO; PROTHROMBIN TIME - PATIENT 11.4 SEC (9.8-11.6)
[2017-09-09] VITALS (14 sets, daily range): BP systolic 107–167; BP diastolic 33–82; PULSE 61–80; RESP 16–18; TEMP 98.1–100.3; O2SAT 92–99
[2017-09-09 07:34] LABS: BICARBONATE 30.5 MEQ/L (21.0-32.0); CALCIUM 8.8 MG/DL (8.5-10.1); CREATININE 2.81 MG/DL (0.50-1.00)
[2017-09-09] MEDS: INSULIN ASPART SUPPLEMENTAL SCALE SQ SCH ×4 (08:00→21:00)
--- NOTE | 2017-09-09 09:20 | PD.ORT.PN ---
Subjective Subjective Remarks Pain is improving and has less confusion Objective Vitals Vital Signs Date Time Temp Pulse Resp B/P (MAP) Pulse Ox O2 Delivery O2 Flow Rate FiO2 09/09/17 08:00 98.3 69 16 129/70 (89) 99 09/09/17 07:59 68 09/09/17 04:27 98.6 62 16 134/67 (89) 97 09/09/17 04:00 62 09/09/17 00:18 99.0 61 16 140/63 (88) 94 09/09/17 00:00 63 09/08/17 20:42 98.6 64 17 151/87 (108) 96 09/08/17 20:00 66 09/08/17 20:00 96 Room Air 09/08/17 18:13 100 09/08/17 16:20 98.7 78 18 160/69 (99) 100 09/08/17 16:00 84 09/08/17 15:08 Room Air I/O 09/08/17 09/08/17 09/08/17 09/09/17 09/09/17 09/09/17 07:00 15:00 23:00 07:00 15:00 23:00 Intake Total 360 ml 120 ml Output Total 2000 ml Balance -2000 ml 360 ml 120 ml Intake Oral 360 ml 120 ml Hemodialysis 2000 ml # Voids 2 3 # Bowel Movements 0 0 Result Diagram: 09/06/17 0630 09/09/17 0538 Other Results Laboratory Tests Test 09/08/17 17:54 Prothromb Time International Ratio 1.1 RATIO Prothrombin Time 11.4 SEC (9.8-11.6) Objective Remarks Left lower extremity: Incision clean dry and intact. No drainage or erythema. Knee range of motion from 80 to neutral. Distally intact sensation. She is able stand with partial weightbearing on the left lower extremity Assessment & Plan Problem List: (1) Dehydration with hypernatremia ICD Codes: E87.0 - Hyperosmolality and hypernatremia (2) Pseudogout of knee ICD Codes: M11.269 - Other chondrocalcinosis, unspecified knee (3) Knee effusion, left ICD Codes: M25.462 - Effusion, left knee Status: Acute Assessment and Plan 1) Septic left knee status post I&D - POD 9 Daily dressing changes - xeroform/primapore IV antibiotics per infectious disease medical mgmt Physical therapy weightbearing as tolerated left lower extremity and passive and active range of motion of knee Continue to work toward discharge plan f/u with [facility] or [facility] in 1 week Vineet Olivares Jr. Sep 09, 2017 09:20
[2017-09-09] MEDS: SODIUM CHLORIDE 0.9% FLUSH 10 ML FLUSH IV FLUSH SCH ×2 (09:27→21:00)
[2017-09-09] MEDS: hydrALAZINE HCL 25 MG TAB PO SCH ×2 (09:27→21:33)
[2017-09-09] MEDS: METOPROLOL TARTRATE 100 MG TAB PO SCH ×2 (09:28→21:33)
[2017-09-09] MEDS: cloNIDine HCL 0.1 MG TAB PO SCH ×2 (09:28→21:33)
[2017-09-09] MEDS: PARICALCITOL 1 MCG CAP PO SCH (09:45)
--- NOTE | 2017-09-09 09:52 | HHI.PR ---
Subjective Remarks more alert and interactive daughter at bedside. Objective Vitals vascath awake. alert. follows commands heart reg lung cta abd s/nt ext left knee mild edema. Vital Signs Date Time Temp Pulse Resp B/P (MAP) Pulse Ox O2 Delivery O2 Flow Rate FiO2 09/09/17 08:00 98.3 69 16 129/70 (89) 99 09/09/17 07:59 68 09/09/17 04:27 98.6 62 16 134/67 (89) 97 09/09/17 04:00 62 09/09/17 00:18 99.0 61 16 140/63 (88) 94 09/09/17 00:00 63 09/08/17 20:42 98.6 64 17 151/87 (108) 96 09/08/17 20:00 66 09/08/17 20:00 96 Room Air 09/08/17 18:13 100 09/08/17 16:20 98.7 78 18 160/69 (99) 100 09/08/17 16:00 84 09/08/17 15:08 Room Air Result Diagram: 09/06/17 0630 09/09/17 0538 Imaging Last Impressions Catheter Placement X-Ray 09/02/17 0000 Signed Impressions: Service Date/Time: August 16:52 - CONCLUSION: Uncomplicated line placement as above. Harsha Ortiz MD Head CT 09/01/17 0000 Signed Impressions: Service Date/Time: Friday, September 01, 2017 19:42 - CONCLUSION: No acute disease. Bashir Kauffman Jr., MD Abdomen X-Ray 09/01/17 0000 Signed Impressions: Service Date/Time: Friday, September 01, 2017 19:30 - CONCLUSION: Normal examination. Bashir Kauffman Jr., MD Chest X-Ray 08/29/17 1350 Signed Impressions: Service Date/Time: Tuesday, August 29, 2017 14:11 - CONCLUSION: No acute disease. Vineet Penaloza MD Knee X-Ray 08/29/17 0000 Signed Impressions: Service Date/Time: Tuesday, August 29, 2017 11:01 - CONCLUSION: 1. Moderate severity osteoarthritic findings with mild lateral compartment narrowing. 2. Large joint effusion. 3. No fracture identified. Montana Meade MD A/P Problem List: (1) Acute renal failure superimposed on stage 4 chronic kidney disease ICD Codes: N17.9 - Acute kidney failure, unspecified; N18.4 - Chronic kidney disease, stage 4 (severe) Status: Acute Plan: - comgmt with Nephrology - Pt with acute on ckd 4 CKD, improving - Vac Cath placed (09/02) - Pt had HD starting on (09/02) , MWF schedule, - was exhibiting uremic encephalopathy, but improving - permcath ordered. will need to arrange outpt HD center then d/c to snf with iv abx at HD updated family. (2) Knee effusion, left ICD Codes: M25.462 - Effusion, left knee Status: Acute Plan: - comgmt with Orthopedics and ID - Pt is a 71 y/o female with IDDM, HTN, osteoarthritis, and hx of breast cancer who presented to the ED at [facility] on 08/29/17 with complaints of severe left knee pain and swelling. - She reportedly got locked out of her car (08/28/17) and had to stand outside for approximately 2 hours waiting for help. That night she woke up during the night with severe left knee pain and was unable to bear weight on it due to the pain and swelling. - No fever or chills. No reported trauma. - Labs in the ED noted WBC count 11.4, Cr 4.25/BUN 73, GFR 12. - Knee Xray noted moderate severity osteoarthritis with mild lateral compartment narrowing and large joint effusion. - The knee was aspirated in the ED and synovial fluid noted WBC count 19,600. - Synovial Fluid culture (08/29) --> Strep pneumoniae - She was given pain medication in the ED and Vancomycin. - zyvox (08/31 - 09/01) - Rocephin (09/01 - present) - d/c abx per ID - Pt underwent I&D with Dr. Jose E Reddy (08/31/17) - synovial fluid studies (08/31) -->strep pna - Roxicodone 15mg Q6H PRN - Supportive care - PT following and pt recommended rehab placement at the end of this hospitalization - SCDs for DVT prophylaxis (3) HTN (hypertension) ICD Codes: I10 - Essential (primary) hypertension Status: Chronic Plan: - Pt was resumed, on Hydralaziner, Norvasc, Metoprolol, and Clonidine - Lisinopril, Losartan, and HCTZ are held - Monitor - Clonidine PRN (4) Diabetes mellitus ICD Codes: E11.9 - Type 2 diabetes mellitus without complications Status: Chronic Plan: - NovoLog SSI - Accu checks (5) Confusion ICD Codes: R41.0 - Disorientation, unspecified Status: Acute Plan: - uremic encephalopathy -> improving - CT brain (09/01) --> NO acute findings - ammonia, RPR, TSH, folate --> WNL Problem Qualifiers (1) Diabetes mellitus: Qualified Codes: E11.8 - Type 2 diabetes mellitus with unspecified complications; Z79.4 - skilled nursing (current) use of insulin Yuan Ruiz MD Sep 09, 2017 09:52
[2017-09-09] MEDS: cefTRIAXone INJ 2,000 MG in SODIUM CHLORIDE 0.9% INJ 100 ML IV SCH (10:26)
[2017-09-09] MEDS: ACETAMINOPHEN 325 MG TAB PO PRN (10:26)
[2017-09-09] MEDS: LORazepam 2 MG/ML VIAL IV PUSH PRN ×2 (13:34→15:34)
[2017-09-09] MEDS ORDERED: MIDAZOLAM HCL 2 MG/2 ML VIAL ONE (14:00)
[2017-09-09] MEDS: VANCOMYCIN INJ 1,000 MG in SODIUM CHLOR 0.9% 250 ML INJ 250 ML IV SCH ×2 (14:00→15:36)
--- NOTE | 2017-09-09 14:14 | HHI.NPPN ---
Subjective History of Present Illness 71 year old with ESRD L knee sepsis Additional Remarks Mental status improving. Denies SOB. Mild edema noted Review of Systems Respiratory Respiratory Remarks denies SOB Cardiovascular Cardiac Remarks Denies CP Gastrointestinal GI Remarks denies Abdominal pain Skin Skin Remarks No rash noted Objective Data Data Vital Signs Date Time Temp Pulse Resp B/P (MAP) Pulse Ox O2 Delivery O2 Flow Rate FiO2 09/09/17 08:00 98.3 69 16 129/70 (89) 99 09/09/17 08:00 Room Air 2.00 21 09/09/17 07:59 68 09/09/17 04:27 98.6 62 16 134/67 (89) 97 09/09/17 04:00 62 09/09/17 00:18 99.0 61 16 140/63 (88) 94 09/09/17 00:00 63 09/08/17 20:42 98.6 64 17 151/87 (108) 96 09/08/17 20:00 66 09/08/17 20:00 96 Room Air 09/08/17 18:13 100 09/08/17 16:20 98.7 78 18 160/69 (99) 100 09/08/17 16:00 84 09/08/17 15:08 Room Air -: 09/06/17 0630 09/09/17 0538 Physical Exam General Appearance: Well Developed, Well Nourished Neck Neck Exam: Neck Supple Pulmonary Resp Exam: Clear Bilaterally, Breath Sounds Equal, Decreased Bases Cardiology CV Exam: Regular, Normal Sinus Rhythm Gastrointestinal/Abdomen GI Exam: Soft, Non-Tender, Bowel Sounds Present Genitourinary Exam: Flank Non-Tender Extremeties Extremities Exam: No Edema Assessment/Plan Problem List: (1) ESRD (end stage renal disease) ICD Codes: N18.6 - End stage renal disease Plan: doing better AVF needed dialysis MWF Plan getting PC Has been passing the urine. Follow the urine out put and BMP. (2) Chronic kidney disease, stage 5 ICD Codes: N18.5 - Chronic kidney disease, stage 5 Plan: Avoid nephrotoxic agents. Avoid Gadolinium. Monitor potassium, other electrolytes, acid base status. (3) Type 2 diabetes mellitus with diabetic chronic kidney disease ICD Codes: E11.22 - Type 2 diabetes mellitus with diabetic chronic kidney disease Plan: BS well controlled overnight insulin coverage maintain blood glucose between 140 and 180 (4) HTN (hypertension) ICD Codes: I10 - Essential (primary) hypertension Status: Chronic Plan: Blood pressure well controlled continue Norvasc, clonidine, hydralazine, and metoprolol (5) Knee effusion, left ICD Codes: M25.462 - Effusion, left knee Status: Acute Plan: s/p arthrocentesis. Seen by ortho. Linus Aly MD Sep 09, 2017 14:14
--- NOTE | 2017-09-09 16:57 | OTSOAPIP ---
TIME SESSION COMPLETED: PM TREATMENT TIME: 0 MINS. CHART REVIEWED. PATIENT WAS NOT AVAILABLE TODAY SECONDARY TO BEING OFF THE UNIT FOR A PROCEDURES PLAN: WILL SEE PATIENT NEXT TREATMENT DAY Therapist: VENECIA LITTLEJOHN/Najma Signature on file
[2017-09-09] MEDS: SODIUM CHLOR 0.45% 1000 ML INJ 1,000 ML IV SCH (17:19)
--- NOTE | 2017-09-09 17:37 | PD.RAD ---
Post Procedure Progress Note Procedure Date: Sep 09, 2017 Supervising Radiologist: Rui Reeder Plan of Activity See PACS Report for procedural detail/treatment Central Venous Access Device Procedure 1 Right Internal Jugular Hemodialysis Catheter Tunneled Conversion (Had [facility]) dual lumen [place]: 15 PICC Line Length (cm): 23 Rui Reeder MD Sep 09, 2017 17:37
[2017-09-09] MEDS ORDERED: LORazepam 2 MG/ML VIAL IV ONE (17:38)
[2017-09-09] MEDS ORDERED: SODIUM CHLORIDE 0.9% FLUSH 10 ML FLUSH IV FLUSH PRN (17:45)
[2017-09-09] MEDS ORDERED: HEPARIN SODIUM - IV 2,000 UNITS/2 ML VIAL IV FLUSH PRN (17:45)
[2017-09-10] VITALS (9 sets, daily range): BP systolic 135–160; BP diastolic 64–73; PULSE 55–74; RESP 16–18; TEMP 97.6–99.3; O2SAT 93–99
[2017-09-10] MEDS: cloNIDine HCL 0.1 MG TAB PO PRN (00:57)
[2017-09-10] MEDS: ACETAMINOPHEN 325 MG TAB PO PRN (00:57)
[2017-09-10] MEDS: INSULIN ASPART SUPPLEMENTAL SCALE SQ SCH ×4 (08:00→21:00)
[2017-09-10 08:36] LABS: BICARBONATE 29.2 MEQ/L (21.0-32.0); CALCIUM 8.6 MG/DL (8.5-10.1); CREATININE 3.18 MG/DL (0.50-1.00)
[2017-09-10] MEDS: cloNIDine HCL 0.1 MG TAB PO SCH ×3 (09:00→21:37)
[2017-09-10] MEDS: METOPROLOL TARTRATE 100 MG TAB PO SCH ×3 (09:00→21:37)
[2017-09-10] MEDS: hydrALAZINE HCL 25 MG TAB PO SCH ×3 (09:00→21:38)
[2017-09-10] MEDS: SODIUM CHLORIDE 0.9% FLUSH 10 ML FLUSH IV FLUSH SCH ×2 (09:00→21:41)
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
[2017-09-10] MEDS: cefTRIAXone INJ 2,000 MG in SODIUM CHLORIDE 0.9% INJ 100 ML IV SCH (12:27)
[2017-09-10] MEDS: PARICALCITOL 1 MCG CAP PO SCH (12:28)
--- NOTE | 2017-09-10 13:24 | OTSOAPIP ---
TIME SESSION COMPLETED: AM TREATMENT TIME: 0 MINS. CHART REVIEWED. PATIENT NO AVAILABLE SECONDARY TO RECEIVING DIAYLSIS OFF THE UNIT PLAN: WILL SEE PATIENT WHEN ABLE OR NEXT TREATMENT DAY Therapist: VENECIA LITTLEJOHN/Najma Signature on file
--- NOTE | 2017-09-10 15:04 | HHI.NPPN ---
Subjective History of Present Illness 71 year old with ESRD L knee sepsis Additional Remarks Mental status improving. Denies SOB. Mild edema noted Review of Systems Respiratory Respiratory Remarks denies SOB Cardiovascular Cardiac Remarks Denies CP Gastrointestinal GI Remarks denies Abdominal pain Skin Skin Remarks No rash noted Objective Data Data 09/10/17 09/11/17 19:00 07:00 Output Total 2000 ml Balance -2000 ml Hemodialysis 2000 ml Vital Signs Date Time Temp Pulse Resp B/P (MAP) Pulse Ox O2 Delivery O2 Flow Rate FiO2 09/10/17 12:00 98.2 72 18 135/64 (87) 96 09/10/17 08:00 Room Air 2.00 21 09/10/17 08:00 97.6 69 18 151/65 (93) 97 09/10/17 04:43 98.5 66 18 151/70 (97) 94 09/10/17 04:00 55 09/10/17 00:00 62 09/09/17 23:38 100.3 80 18 156/70 (98) 92 09/09/17 20:42 99.1 75 18 167/74 (105) 95 Automatic Cuff 09/09/17 20:15 96 Room Air 09/09/17 20:00 75 09/09/17 16:24 69 18 124/82 (96) 97 09/09/17 16:00 98.1 76 18 148/67 (94) 97 09/09/17 15:40 67 18 107/37 (60) 97 09/09/17 15:25 98.4 69 18 110/33 (58) 94 -: 09/06/17 0630 09/10/17 0613 Physical Exam General Appearance: Well Developed, Well Nourished Neck Neck Exam: Neck Supple Pulmonary Resp Exam: Clear Bilaterally, Breath Sounds Equal, Decreased Bases Cardiology CV Exam: Regular, Normal Sinus Rhythm Gastrointestinal/Abdomen GI Exam: Soft, Non-Tender, Bowel Sounds Present Genitourinary Exam: Flank Non-Tender Extremeties Extremities Exam: No Edema Assessment/Plan Problem List: (1) ESRD (end stage renal disease) ICD Codes: N18.6 - End stage renal disease Plan: doing better AVF needed dialysis MWF Plan HD 2 L UF via PC (2) Chronic kidney disease, stage 5 ICD Codes: N18.5 - Chronic kidney disease, stage 5 Plan: Avoid nephrotoxic agents. Avoid Gadolinium. Monitor potassium, other electrolytes, acid base status. (3) Type 2 diabetes mellitus with diabetic chronic kidney disease ICD Codes: E11.22 - Type 2 diabetes mellitus with diabetic chronic kidney disease Plan: BS well controlled overnight insulin coverage maintain blood glucose between 140 and 180 (4) HTN (hypertension) ICD Codes: I10 - Essential (primary) hypertension Status: Chronic Plan: Blood pressure well controlled continue Norvasc, clonidine, hydralazine, and metoprolol (5) Knee effusion, left ICD Codes: M25.462 - Effusion, left knee Status: Acute Plan: s/p arthrocentesis. Seen by ortho. Linus Aly MD Sep 10, 2017 15:04
[2017-09-10] MEDS: SODIUM CHLOR 0.45% 1000 ML INJ 1,000 ML IV SCH (15:18)
[2017-09-10] MEDS: HYDROmorphone HCL PF 2 MG/ML VIAL IV PUSH PRN (19:26)
[2017-09-10] MEDS: ONDANSETRON HCL 4 MG/2 ML VIAL IVP PRN (21:52)
[2017-09-11] VITALS (8 sets, daily range): BP systolic 111–149; BP diastolic 51–64; PULSE 59–79; RESP 16–18; TEMP 98.4–99.6; O2SAT 94–99
[2017-09-11] MEDS: INSULIN ASPART SUPPLEMENTAL SCALE SQ SCH ×4 (08:00→21:00)
[2017-09-11] MEDS: SODIUM CHLORIDE 0.9% FLUSH 10 ML FLUSH IV FLUSH SCH ×2 (08:16→21:00)
[2017-09-11] MEDS: METOPROLOL TARTRATE 100 MG TAB PO SCH ×2 (08:17→21:49)
[2017-09-11] MEDS: cloNIDine HCL 0.1 MG TAB PO SCH ×2 (08:17→21:49)
[2017-09-11] MEDS: hydrALAZINE HCL 25 MG TAB PO SCH ×2 (08:17→21:49)
[2017-09-11] MEDS: PARICALCITOL 1 MCG CAP PO SCH (08:17)
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
[2017-09-11] MEDS: LACTULOSE SYRUP 20 GM/30 ML CUP PO SCH ×2 (09:37→22:15)
--- NOTE | 2017-09-11 11:21 | HHI.NPPN ---
Subjective History of Present Illness 71 year old with ESRD L knee sepsis Additional Remarks Had dialysis yesterday. Outpatient dialysis arrangements to be made. Being treated for septic arthritis. Review of Systems Respiratory Respiratory Remarks denies SOB Cardiovascular Cardiac Remarks Denies CP Gastrointestinal GI Remarks denies Abdominal pain Skin Skin Remarks No rash noted Objective Data Data Vital Signs Date Time Temp Pulse Resp B/P (MAP) Pulse Ox O2 Delivery O2 Flow Rate FiO2 09/11/17 10:12 Room Air 09/11/17 08:00 98.9 72 18 133/64 (87) 95 09/11/17 08:00 79 09/11/17 04:52 98.4 63 16 149/63 (91) 99 09/11/17 04:00 59 09/11/17 00:00 63 09/10/17 23:25 98.8 72 16 147/67 (93) 93 09/10/17 20:40 99.3 63 16 160/73 (102) 96 09/10/17 20:00 Room Air 09/10/17 20:00 68 09/10/17 16:00 69 09/10/17 16:00 98.7 74 18 138/67 (90) 99 09/10/17 12:00 98.2 72 18 135/64 (87) 96 -: 09/10/17 0613 Physical Exam General Appearance: Well Developed, Well Nourished Neck Neck Exam: Neck Supple Pulmonary Resp Exam: Clear Bilaterally, Breath Sounds Equal, Decreased Bases Cardiology CV Exam: Regular, Normal Sinus Rhythm Gastrointestinal/Abdomen GI Exam: Soft, Non-Tender, Bowel Sounds Present Genitourinary Exam: Flank Non-Tender Extremeties Extremities Exam: No Edema Assessment/Plan Problem List: (1) ESRD (end stage renal disease) ICD Codes: N18.6 - End stage renal disease Plan: Continue dialysis MWF. Avoid Gadolinium. Monitor fluid and electrolytes. (2) Type 2 diabetes mellitus with diabetic chronic kidney disease ICD Codes: E11.22 - Type 2 diabetes mellitus with diabetic chronic kidney disease Plan: BS well controlled overnight insulin coverage maintain blood glucose between 140 and 180 (3) HTN (hypertension) ICD Codes: I10 - Essential (primary) hypertension Status: Chronic Plan: Blood pressure well controlled continue Norvasc, clonidine, hydralazine, and metoprolol (4) Knee effusion, left ICD Codes: M25.462 - Effusion, left knee Status: Acute Plan: s/p arthrocentesis. Seen by ortho and ID. septic arthritis. Streptococcus pneumoniae in the Gram stain. Carlos Rees MD Sep 11, 2017 11:21
[2017-09-11] MEDS: cefTRIAXone INJ 2,000 MG in SODIUM CHLORIDE 0.9% INJ 100 ML IV SCH (12:28)
--- NOTE | 2017-09-11 15:54 | HHI.IDPN ---
Subjective Subjective Remarks co worsening pain and swelling in L knee sp vas cath placement no fever On HD Antibiotics CFTX Allergies: Coded Allergies: No Known Allergies (Unverified Allergy, Unknown, 08/29/17) Objective . Vital Signs Date Time Temp Pulse Resp B/P (MAP) Pulse Ox O2 Delivery O2 Flow Rate FiO2 09/11/17 12:00 98.4 78 18 131/51 (77) 97 09/11/17 12:00 61 09/11/17 10:12 Room Air 09/11/17 08:00 98.9 72 18 133/64 (87) 95 09/11/17 08:00 79 09/11/17 04:52 98.4 63 16 149/63 (91) 99 09/11/17 04:00 59 09/11/17 00:00 63 09/10/17 23:25 98.8 72 16 147/67 (93) 93 09/10/17 20:40 99.3 63 16 160/73 (102) 96 09/10/17 20:00 Room Air 09/10/17 20:00 68 09/10/17 16:00 69 09/10/17 16:00 98.7 74 18 138/67 (90) 99 . Laboratory Tests Test 09/10/17 06:13 Blood Urea Nitrogen 36 MG/DL Creatinine 3.18 MG/DL Random Glucose 122 MG/DL Calcium Level 8.6 MG/DL Sodium Level 140 MEQ/L Potassium Level 3.8 MEQ/L Chloride Level 102 MEQ/L Carbon Dioxide Level 29.2 MEQ/L Anion Gap 9 MEQ/L Estimat Glomerular Filtration Rate 17 ML/MIN Imaging Last Impressions Catheter Placement X-Ray 09/02/17 0000 Signed Impressions: Service Date/Time: August 16:52 - CONCLUSION: Uncomplicated line placement as above. Harsha Ortiz MD Head CT 09/01/17 0000 Signed Impressions: Service Date/Time: Friday, September 01, 2017 19:42 - CONCLUSION: No acute disease. Bashir Kauffman Jr., MD Abdomen X-Ray 09/01/17 0000 Signed Impressions: Service Date/Time: Friday, September 01, 2017 19:30 - CONCLUSION: Normal examination. Bashir Kauffman Jr., MD Chest X-Ray 08/29/17 1350 Signed Impressions: Service Date/Time: Tuesday, August 29, 2017 14:11 - CONCLUSION: No acute disease. Vineet Penaloza MD Knee X-Ray 08/29/17 0000 Signed Impressions: Service Date/Time: Tuesday, August 29, 2017 11:01 - CONCLUSION: 1. Moderate severity osteoarthritic findings with mild lateral compartment narrowing. 2. Large joint effusion. 3. No fracture identified. Montana Meade MD Physical Exam CONSTITUTIONAL/GENERAL: This is a morbidly obese patient, in no apparent distress. TUBES/LINES/DRAINS: R IJ Vascath in place SKIN: No jaundice, rashes, or lesions. Skin temperature appropriate. Not diaphoretic. CARDIOVASCULAR: Regular rate and rhythm without murmurs, gallops, or rubs. No JVD. Peripheral pulses symmetric. RESPIRATORY/CHEST: Symmetric, unlabored respirations. Clear to auscultation. Breath sounds equal bilaterally. No wheezes, rales, or rhonchi. GASTROINTESTINAL: Abdomen soft, non-tender, nondistended. No hepato-splenomegaly , or palpable masses. No guarding. Bowel sounds present. GENITOURINARY: Without palpable bladder distension. MUSCULOSKELETAL: Extremities without clubbing, cyanosis, + edema. LLE with clean, well approximated incision, serous drainage noted on dressing + edema, some erythema + L knee effusion + palpationn and ROM is painful healing nicely zacarias in NEUROLOGICAL: awake, alert PSYCHIATRIC: tearful Assessment & Plan Remarks Left knee septic arthritis, MDRO Strep pneumo sp I+D co worsening pain CKD, stage 5 - HD started Mild leukocytosis fu WBC cont CFTX for now Ortho reconsulted 2/2 worsning pain, will follow their recommendations re further w/u As o/p we can RX her with vancomycin with HD x 4 weeks will see as needed, please call if any new issues dw Dr Joseph Lewis,Sierra Smith MD Sep 11, 2017 15:54
[2017-09-11] MEDS: HYDROmorphone HCL PF 2 MG/ML VIAL IV PUSH PRN (18:06)
[2017-09-11] MEDS: SODIUM CHLOR 0.45% 1000 ML INJ 1,000 ML IV SCH (21:50)
[2017-09-11] MEDS: ONDANSETRON HCL 4 MG/2 ML VIAL IVP PRN (21:56)
[2017-09-12] VITALS (8 sets, daily range): BP systolic 118–150; BP diastolic 65–82; PULSE 55–92; RESP 18; TEMP 97.7–99.1; O2SAT 94–97
[2017-09-12] MEDS: HYDROmorphone HCL PF 2 MG/ML VIAL IV PUSH PRN ×2 (00:30→06:27)
--- NOTE | 2017-09-12 07:07 | PD.ORT.PN ---
Subjective Subjective Remarks Continues to have pain to left knee. Is having more difficulty ambulating Objective Vitals Vital Signs Date Time Temp Pulse Resp B/P (MAP) Pulse Ox O2 Delivery O2 Flow Rate FiO2 09/12/17 04:00 Room Air 09/12/17 03:44 55 09/12/17 00:00 57 09/12/17 00:00 Room Air 09/11/17 22:16 69 09/11/17 20:00 Room Air 09/11/17 16:00 77 09/11/17 16:00 99.5 64 18 141/63 (89) 95 09/11/17 12:00 98.4 78 18 131/51 (77) 97 09/11/17 12:00 61 09/11/17 10:12 Room Air 09/11/17 08:00 98.9 72 18 133/64 (87) 95 09/11/17 08:00 79 I/O 09/11/17 09/11/17 09/11/17 09/12/17 09/12/17 09/12/17 07:00 15:00 23:00 07:00 15:00 23:00 Intake Total 0 ml 100 ml 1240 ml 340 ml Balance 0 ml 100 ml 1240 ml 340 ml Intake Oral 0 ml 240 ml IV Total 100 ml 1000 ml 340 ml # Voids 3 2 # Bowel Movements 0 Result Diagram: 09/10/17 0613 Objective Remarks Left lower extremity: Incision clean dry and intact. No drainage or erythema. Knee range of motion from 10 short of extension to 60. Distally intact sensation. Assessment & Plan Problem List: (1) Dehydration with hypernatremia ICD Codes: E87.0 - Hyperosmolality and hypernatremia (2) Pseudogout of knee ICD Codes: M11.269 - Other chondrocalcinosis, unspecified knee (3) Knee effusion, left ICD Codes: M25.462 - Effusion, left knee Status: Acute Assessment and Plan 1) Septic left knee status post I&D - 08/31 POD 12 Daily dressing changes - xeroform/primapore IV antibiotics per infectious disease - cultures and sensitivities are available Minimal increased swelling of leg. No surgical intervention at this time. Medical mgmt Physical therapy weightbearing as tolerated left lower extremity and passive and active range of motion of knee We'll order C-reactive protein and sedimentation rate today Continue to work toward discharge plan f/u with [facility] or [facility] in 1 week Vineet Olivares Jr. Sep 12, 2017 07:06
[2017-09-12] MEDS: INSULIN ASPART SUPPLEMENTAL SCALE SQ SCH ×4 (08:00→21:00)
[2017-09-12] MEDS: SODIUM CHLORIDE 0.9% FLUSH 10 ML FLUSH IV FLUSH SCH ×2 (08:06→21:00)
[2017-09-12] MEDS: METOPROLOL TARTRATE 100 MG TAB PO SCH ×2 (08:07→21:36)
[2017-09-12] MEDS: LACTULOSE SYRUP 20 GM/30 ML CUP PO SCH ×2 (08:07→21:36)
[2017-09-12] MEDS: cloNIDine HCL 0.1 MG TAB PO SCH ×2 (08:07→21:37)
[2017-09-12] MEDS: PARICALCITOL 1 MCG CAP PO SCH (08:07)
[2017-09-12] MEDS: hydrALAZINE HCL 25 MG TAB PO SCH ×2 (08:07→21:36)
--- NOTE | 2017-09-12 08:36 | HHI.NPPN ---
Subjective History of Present Illness 71 year old with ESRD L knee sepsis Additional Remarks Patient on MWF dialysis. Seen by Orthopedic surgeon yesterday. Notes were reviewed. Review of Systems General Constitutional: Fatigue Respiratory Respiratory Remarks denies SOB Cardiovascular Cardiac Remarks Denies CP Gastrointestinal GI Remarks denies Abdominal pain Musculoskeletal MS: Pain/Stiffness, Swelling in Joint Skin Skin Remarks No rash noted Objective Data Data Vital Signs Date Time Temp Pulse Resp B/P (MAP) Pulse Ox O2 Delivery O2 Flow Rate FiO2 09/12/17 07:07 Room Air 09/12/17 04:00 Room Air 09/12/17 04:00 98.8 62 18 139/65 (89) 94 09/12/17 03:44 55 09/12/17 00:00 57 09/12/17 00:00 Room Air 09/12/17 00:00 99.1 65 18 139/65 (89) 94 09/11/17 22:16 69 09/11/17 20:00 99.6 61 18 111/53 (72) 94 09/11/17 20:00 Room Air 09/11/17 16:00 77 09/11/17 16:00 99.5 64 18 141/63 (89) 95 09/11/17 12:00 98.4 78 18 131/51 (77) 97 09/11/17 12:00 61 09/11/17 10:12 Room Air -: 09/10/17 0613 Physical Exam General Appearance: Well Developed, Well Nourished Neck Neck Exam: Neck Supple Pulmonary Resp Exam: Clear Bilaterally, Breath Sounds Equal, Decreased Bases Cardiology CV Exam: Regular, Normal Sinus Rhythm Gastrointestinal/Abdomen GI Exam: Soft, Non-Tender, Bowel Sounds Present Genitourinary Exam: Flank Non-Tender Musculoskeletal MS Exam: Unable to Ambulate Extremeties Extremities Exam: No Edema Assessment/Plan Problem List: (1) ESRD (end stage renal disease) ICD Codes: N18.6 - End stage renal disease Plan: Continue dialysis MWF. Avoid Gadolinium. Monitor fluid and electrolytes. (2) Type 2 diabetes mellitus with diabetic chronic kidney disease ICD Codes: E11.22 - Type 2 diabetes mellitus with diabetic chronic kidney disease Plan: BS well controlled overnight insulin coverage maintain blood glucose between 140 and 180 (3) HTN (hypertension) ICD Codes: I10 - Essential (primary) hypertension Status: Chronic Plan: Blood pressure well controlled continue Norvasc, clonidine, hydralazine, and metoprolol (4) Knee effusion, left ICD Codes: M25.462 - Effusion, left knee Status: Acute Plan: s/p arthrocentesis. S/p I & D. Seen by ortho and ID. septic arthritis. Streptococcus pneumoniae in the Gram stain. Carlos Rees MD Sep 12, 2017 08:36
[2017-09-12] MEDS: ONDANSETRON HCL 4 MG/2 ML VIAL IVP PRN (08:47)
[2017-09-12] MEDS ORDERED: HYDROmorphone HCL PF 1 MG/ML VIAL IV PUSH PRN (09:15)
[2017-09-12] MEDS ORDERED: methylPREDNISolone SOD SUCC 125 MG/2 ML VIAL IV PUSH ONE (09:15)
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
[2017-09-12] MEDS: cefTRIAXone INJ 2,000 MG in SODIUM CHLORIDE 0.9% INJ 100 ML IV SCH (09:44)
[2017-09-12 14:03] LABS: BASOPHIL % 0.4 % (0.0-2.0); EOSINOPHIL % 0.3 % (0.0-4.0); HEMATOCRIT 29.6 % (35.0-46.0); HEMOGLOBIN 9.4 GM/DL (11.6-15.3); LYMPH % 4.7 % (9.0-44.0); LYMPHOCYTE # 0.6 TH/MM3 (1.0-4.8); MEAN CELL VOLUME 90.8 FL (80.0-100.0); MEAN CORPUSCULAR HEMOGLOBIN 28.7 PG (27.0-34.0); MEAN CORPUSCULAR HGB CONC 31.6 % (32.0-36.0); MEAN PLATELET VOLUME 7.2 FL (7.0-11.0); MONO % 2.2 % (0.0-8.0); MONOCYTE # 0.3 TH/MM3 (0-0.9); NEUT % 92.4 % (16.0-70.0); PLATELET COUNT 449 TH/MM3 (150-450); RED BLOOD COUNT 3.26 MIL/MM3 (4.00-5.30); RED CELL DISTRIBUTION WIDTH 15.1 % (11.6-17.2); WHITE BLOOD COUNT 11.9 TH/MM3 (4.0-11.0)
[2017-09-12] MEDS: ACETAMINOPHEN/HYDROcodone 325 MG/10 MG TAB PO PRN ×2 (15:20→22:56)
[2017-09-12] MEDS: methylPREDNISolone SOD SUCC 125 MG/2 ML VIAL IV PUSH SCH ×2 (17:07→22:55)
[2017-09-13] VITALS: BP 161/67; PULSE 64; PULSE 65; RESP 18; TEMP 97.9; O2SAT 95
[2017-09-13 04:00] VITALS: BP 146/68; PULSE 57; PULSE 62; RESP 18; TEMP 98.3; O2SAT 96
--- NOTE | 2017-09-13 07:07 | PD.ORT.PN ---
Subjective Subjective Remarks POD 13 s/p I&D left knee patient improving. patient confused and mumbling. Objective Vitals Vital Signs Date Time Temp Pulse Resp B/P (MAP) Pulse Ox O2 Delivery O2 Flow Rate FiO2 09/13/17 04:00 57 09/13/17 03:59 Room Air 09/13/17 00:00 Room Air 09/13/17 00:00 65 09/12/17 22:00 92 09/12/17 20:00 Room Air 09/12/17 16:00 98.8 63 18 150/68 (95) 97 09/12/17 16:00 60 09/12/17 12:00 98.0 65 18 131/69 (89) 94 09/12/17 12:00 79 09/12/17 08:00 56 09/12/17 08:00 98.3 69 18 118/82 (94) 95 09/12/17 07:07 Room Air I/O 09/12/17 09/12/17 09/12/17 09/13/17 09/13/17 09/13/17 07:00 15:00 23:00 07:00 15:00 23:00 Intake Total 340 ml 250 ml 240 ml Balance 340 ml 250 ml 240 ml Intake Oral 240 ml IV Total 340 ml 250 ml Result Diagram: 09/12/17 1326 09/10/17 0613 Objective Remarks Left lower extremity: Incision clean dry and intact. No drainage or erythema. Knee range of motion from 10 short of extension to 60. Distally intact sensation. minimal swelling noted. nontender to palpation Assessment & Plan Problem List: (1) Dehydration with hypernatremia ICD Codes: E87.0 - Hyperosmolality and hypernatremia (2) Pseudogout of knee ICD Codes: M11.269 - Other chondrocalcinosis, unspecified knee (3) Knee effusion, left ICD Codes: M25.462 - Effusion, left knee Status: Acute Assessment and Plan 1) Septic left knee status post I&D - 08/31 POD 13 Daily dressing changes - xeroform/primapore IV antibiotics per infectious disease - cultures and sensitivities are available Minimal increased swelling of leg. No surgical intervention at this time. Medical mgmt Physical therapy weightbearing as tolerated left lower extremity and passive and active range of motion of knee Continue to work toward discharge plan f/u with Barry or PA in 1 week Floyd Monae PA/[employer] Developer PA Sep 13, 2017 07:07
[2017-09-13 08:07] VITALS: BP 142/70; PULSE 80; RESP 20; TEMP 98.1; O2SAT 96
[2017-09-13] MEDS: INSULIN ASPART SUPPLEMENTAL SCALE SQ SCH ×4 (08:50→20:59)
--- NOTE | 2017-09-13 10:36 | HHI.NPPN ---
Subjective History of Present Illness 71 year old with ESRD L knee sepsis Additional Remarks Patient on MWF dialysis. Seen by Orthopedic surgeon yesterday. Notes were reviewed. Review of Systems General Constitutional: Fatigue Respiratory Respiratory Remarks denies SOB Cardiovascular Cardiac Remarks Denies CP Gastrointestinal GI Remarks denies Abdominal pain Musculoskeletal MS: Pain/Stiffness, Swelling in Joint Skin Skin Remarks No rash noted Objective Data Data Vital Signs Date Time Temp Pulse Resp B/P (MAP) Pulse Ox O2 Delivery O2 Flow Rate FiO2 09/13/17 04:00 98.3 62 18 146/68 (94) 96 09/13/17 04:00 57 09/13/17 03:59 Room Air 09/13/17 00:00 Room Air 09/13/17 00:00 65 09/13/17 00:00 97.9 64 18 161/67 (98) 95 09/12/17 22:00 92 09/12/17 20:00 Room Air 09/12/17 20:00 97.7 68 18 143/80 (101) 96 09/12/17 16:00 98.8 63 18 150/68 (95) 97 09/12/17 16:00 60 09/12/17 12:00 98.0 65 18 131/69 (89) 94 09/12/17 12:00 79 -: 09/12/17 1326 09/10/17 0613 Physical Exam General Appearance: Well Developed, Well Nourished Neck Neck Exam: Neck Supple Pulmonary Resp Exam: Clear Bilaterally, Breath Sounds Equal, Decreased Bases Cardiology CV Exam: Regular, Normal Sinus Rhythm Gastrointestinal/Abdomen GI Exam: Soft, Non-Tender, Bowel Sounds Present Genitourinary Exam: Flank Non-Tender Musculoskeletal MS Exam: Unable to Ambulate Extremeties Extremities Exam: No Edema Assessment/Plan Problem List: (1) ESRD (end stage renal disease) ICD Codes: N18.6 - End stage renal disease Plan: Continue dialysis MWF. Avoid Gadolinium. she is seen during dialysis 2 L UF Monitor fluid and electrolytes. (2) Type 2 diabetes mellitus with diabetic chronic kidney disease ICD Codes: E11.22 - Type 2 diabetes mellitus with diabetic chronic kidney disease Plan: BS well controlled overnight insulin coverage maintain blood glucose between 140 and 180 (3) HTN (hypertension) ICD Codes: I10 - Essential (primary) hypertension Status: Chronic Plan: Blood pressure well controlled continue Norvasc, clonidine, hydralazine, and metoprolol (4) Knee effusion, left ICD Codes: M25.462 - Effusion, left knee Status: Acute Plan: s/p arthrocentesis. S/p I & D. Seen by ortho and ID. septic arthritis. Streptococcus pneumoniae in the Gram stain. Linus Bangura MD Sep 13, 2017 10:36
[2017-09-13 12:07] VITALS: BP 140/66; PULSE 72; RESP 20; TEMP 98.2; O2SAT 97
[2017-09-13] MEDS: HEPARIN SODIUM - IV 10,000 UNITS/10 ML VIAL PRN (12:27)
[2017-09-13] MEDS: GENTAMICIN SULFATE 20 MG/2 ML VIAL OTHER PRN (12:27)
[2017-09-13] MEDS: EPOETIN ALFA 10,000 UNITS/ML VIAL IV PUSH PRN (12:27)
[2017-09-13] MEDS: METOPROLOL TARTRATE 100 MG TAB PO SCH ×2 (13:02→20:29)
[2017-09-13] MEDS: PARICALCITOL 1 MCG CAP PO SCH (13:02)
[2017-09-13] MEDS: cefTRIAXone INJ 2,000 MG in SODIUM CHLORIDE 0.9% INJ 100 ML IV SCH (13:03)
[2017-09-13] MEDS: SODIUM CHLORIDE 0.9% FLUSH 10 ML FLUSH IV FLUSH SCH ×2 (13:03→20:30)
[2017-09-13] MEDS: LACTULOSE SYRUP 20 GM/30 ML CUP PO SCH ×3 (13:03→20:31)
[2017-09-13] MEDS: cloNIDine HCL 0.1 MG TAB PO SCH ×2 (13:03→20:29)
[2017-09-13] MEDS: hydrALAZINE HCL 25 MG TAB PO SCH ×2 (13:03→20:29)
--- NOTE | 2017-09-13 14:20 | HHI.IDPN ---
Subjective Subjective Remarks L knee better sp permacath placement no fever On HD Pt was re-evaluated by ortho, recommended to cont current tx Antibiotics CFTX Allergies: Coded Allergies: No Known Allergies (Unverified Allergy, Unknown, 08/29/17) Objective . Vital Signs Date Time Temp Pulse Resp B/P (MAP) Pulse Ox O2 Delivery O2 Flow Rate FiO2 09/13/17 08:07 98.1 80 20 142/70 (94) 96 09/13/17 08:00 Room Air 09/13/17 04:00 98.3 62 18 146/68 (94) 96 09/13/17 04:00 57 09/13/17 03:59 Room Air 09/13/17 00:00 Room Air 09/13/17 00:00 65 09/13/17 00:00 97.9 64 18 161/67 (98) 95 09/12/17 22:00 92 09/12/17 20:00 Room Air 09/12/17 20:00 97.7 68 18 143/80 (101) 96 09/12/17 16:00 98.8 63 18 150/68 (95) 97 09/12/17 16:00 60 09/13/17 09/13/17 09/14/17 15:00 23:00 07:00 Output Total 2000 ml Balance -2000 ml Hemodialysis 2000 ml . Laboratory Tests Test 09/12/17 13:26 White Blood Count 11.9 TH/MM3 Red Blood Count 3.26 MIL/MM3 Hemoglobin 9.4 GM/DL Hematocrit 29.6 % Mean Corpuscular Volume 90.8 FL Mean Corpuscular Hemoglobin 28.7 PG Mean Corpuscular Hemoglobin Concent 31.6 % Red Cell Distribution Width 15.1 % Platelet Count 449 TH/MM3 Mean Platelet Volume 7.2 FL Neutrophils (%) (Auto) 92.4 % Lymphocytes (%) (Auto) 4.7 % Monocytes (%) (Auto) 2.2 % Eosinophils (%) (Auto) 0.3 % Basophils (%) (Auto) 0.4 % Neutrophils # (Auto) 11.0 TH/MM3 Lymphocytes # (Auto) 0.6 TH/MM3 Monocytes # (Auto) 0.3 TH/MM3 Eosinophils # (Auto) 0.0 TH/MM3 Basophils # (Auto) 0.0 TH/MM3 CBC Comment DIFF FINAL Differential Comment Erythrocyte Sedimentation Rate 1 mm/hr Laboratory Tests Test 09/12/17 13:26 C-Reactive Protein 22.70 MG/DL Imaging Last Impressions Catheter Placement X-Ray 09/02/17 0000 Signed Impressions: Service Date/Time: August 16:52 - CONCLUSION: Uncomplicated line placement as above. Harsha Ortiz MD Head CT 09/01/17 0000 Signed Impressions: Service Date/Time: Friday, September 01, 2017 19:42 - CONCLUSION: No acute disease. Bashir Kauffman Jr., MD Abdomen X-Ray 09/01/17 0000 Signed Impressions: Service Date/Time: Friday, September 01, 2017 19:30 - CONCLUSION: Normal examination. Bashir Kauffman Jr., MD Chest X-Ray 08/29/17 1350 Signed Impressions: Service Date/Time: Tuesday, August 29, 2017 14:11 - CONCLUSION: No acute disease. Vineet Penaloza MD Knee X-Ray 08/29/17 0000 Signed Impressions: Service Date/Time: Tuesday, August 29, 2017 11:01 - CONCLUSION: 1. Moderate severity osteoarthritic findings with mild lateral compartment narrowing. 2. Large joint effusion. 3. No fracture identified. Montana Meade MD Physical Exam CONSTITUTIONAL/GENERAL: This is a morbidly obese patient, in no apparent distress. TUBES/LINES/DRAINS: R IJ Vascath in place SKIN: No jaundice, rashes, or lesions. Skin temperature appropriate. Not diaphoretic. CARDIOVASCULAR: Regular rate and rhythm without murmurs, gallops, or rubs. No JVD. Peripheral pulses symmetric. RESPIRATORY/CHEST: Symmetric, unlabored respirations. Clear to auscultation. Breath sounds equal bilaterally. No wheezes, rales, or rhonchi. GASTROINTESTINAL: Abdomen soft, non-tender, nondistended. No hepato-splenomegaly , or palpable masses. No guarding. Bowel sounds present. GENITOURINARY: Without palpable bladder distension. MUSCULOSKELETAL: Extremities without clubbing, cyanosis, + edema. LLE with clean, well approximated incision, serous drainage noted on dressing + minimla edema, no erythema + palpationn and ROM is not painful healing nicely zacarias in NEUROLOGICAL: awake, alert ; very confused. Reverberating PSYCHIATRIC: calm , cooperative Assessment & Plan Remarks Left knee septic arthritis, MDRO Strep pneumo sp I+D co worsening pain CKD, stage 5 - HD started Mild leukocytosis - improved fu WBC cont CFTX for now Ortho reconsulted 09/17 worsning pain, recommended cont current tx and o/p f/u As o/p we can RX her with cefazolin 2 gm AFTER each HD . Complete treatment on 09/29 Once ready for dc will cont abx with HD dw Sierra Lema MD Sep 13, 2017 14:20
--- NOTE | 2017-09-13 14:23 | HHI.FF ---
Infusion Therapy Location of Infusion Therapy: Dialysis Center Patient Information Patient Weight 101 kg Diagnosis: Coded Allergies: No Known Allergies (Unverified Allergy, Unknown, 08/29/17) Administer Medication Cefazolin 2 grams IV q 48 hours w/Hemodialysis M,W,F Start Treatment: Sep 15, 2017 Stop Treatment: Sep 29, 2017 Additional Information Venous access: Other (Permacath) Additional Instructions [x] Peripheral flush and dressing changes per protocol [x] Implanted port and central online program coordinator: * Implanted port: 10 ml Normal Saline followed by 5 ml Heparin 100 units/ml Heparin flush after each use and monthly to maintain. [] May leave port accessed during therapy. [] May leave peripheral site accessed for duration of therapy. [x] If patient has SOB or respiratory distress, check oxygen saturation. If less than 90% or clinical signs of respiratory distress, administer oxygen at 2 L/min. via nasal cannula and notify physician. [x] Anaphylaxis/Reaction orders: * Stop infusion. * Keep IV line open with saline flush. * Notify physician. * Monitor vital signs every 15 minutes until symptoms resolve. * Check Oxygen saturation; Oxygen at 2 L/min. via nasal cannula if less than 90% or clinical signs of respiratory distress. * Administer diphenhydramine (Benadryl) 25 mg IV STAT, (unless patient has received as pre-med). May repeat once, if necessary. * Solu-Cortef 250 mg IVP over 30-60 seconds, use 100 mg vials for each dissolution. * Epinephrine (1mg/1 ml) 0.3 mg subcutaneously or IVP now with any signs of respiratory distress. * Check with physician for new additional pre-med orders if patient is re- challenged or re-treated. [x] May remove PICC line when treatment complete, after confirming with Physician. [x] If the patient is admitted to the hospital, the ED, or transferred via [facility] , complete transfer form including medication reconciliation order sheet. Sierra Lewis MD Sep 13, 2017 14:22
[2017-09-13 16:00] VITALS: PULSE 70
[2017-09-13 16:07] VITALS: BP 138/68; PULSE 74; RESP 20; TEMP 98; O2SAT 97
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
[2017-09-13] MEDS: ACETAMINOPHEN 325 MG TAB PO PRN ×2 (19:04→23:00)
[2017-09-14] VITALS: BP 132/73; PULSE 55; PULSE 65; PULSE 80; RESP 20; TEMP 98.9; O2SAT 95
[2017-09-14] MEDS: ACETAMINOPHEN 325 MG TAB PO PRN ×4 (03:16→15:14)
[2017-09-14 04:00] VITALS: BP 145/47; PULSE 57; PULSE 58; RESP 18; TEMP 97.9
[2017-09-14 08:00] VITALS: PULSE 53
[2017-09-14 08:07] VITALS: BP 154/80; PULSE 59; RESP 22; TEMP 98; O2SAT 100
[2017-09-14] MEDS: INSULIN ASPART SUPPLEMENTAL SCALE SQ SCH ×2 (08:11→12:04)
[2017-09-14] MEDS: hydrALAZINE HCL 25 MG TAB PO SCH (08:13)
[2017-09-14] MEDS: METOPROLOL TARTRATE 100 MG TAB PO SCH (08:13)
[2017-09-14] MEDS: cloNIDine HCL 0.1 MG TAB PO SCH (08:13)
[2017-09-14] MEDS: PARICALCITOL 1 MCG CAP PO SCH (08:13)
[2017-09-14] MEDS: SODIUM CHLORIDE 0.9% FLUSH 10 ML FLUSH IV FLUSH SCH (08:14)
[2017-09-14] MEDS: LACTULOSE SYRUP 20 GM/30 ML CUP PO SCH (08:14)
[2017-09-14 09:47] LABS: BICARBONATE 29.3 MEQ/L (21.0-32.0); CALCIUM 8.5 MG/DL (8.5-10.1); CREATININE 3.75 MG/DL (0.50-1.00)
[2017-09-14] MEDS: cefTRIAXone INJ 2,000 MG in SODIUM CHLORIDE 0.9% INJ 100 ML IV SCH (11:16)
[2017-09-14 12:00] VITALS: PULSE 52
[2017-09-14 12:07] VITALS: BP 113/52; PULSE 54; RESP 22; TEMP 99.7; O2SAT 100
--- NOTE | 2017-09-14 12:08 | HHI.NPPN ---
Subjective History of Present Illness 71 year old with ESRD L knee sepsis Additional Remarks Patient on MWF dialysis. Review of Systems General Constitutional: Fatigue Respiratory Respiratory Remarks denies SOB Cardiovascular Cardiac Remarks Denies CP Gastrointestinal GI Remarks denies Abdominal pain Musculoskeletal MS: Pain/Stiffness, Swelling in Joint Skin Skin Remarks No rash noted Objective Data Data Vital Signs Date Time Temp Pulse Resp B/P (MAP) Pulse Ox O2 Delivery O2 Flow Rate FiO2 09/14/17 08:07 98.0 59 22 154/80 (104) 100 09/14/17 08:00 53 09/14/17 08:00 Room Air 09/14/17 04:12 Room Air 09/14/17 04:00 57 09/14/17 04:00 97.9 58 18 145/47 (79) 09/14/17 00:00 Room Air 09/14/17 00:00 65 09/14/17 00:00 98.9 80 20 132/73 (92) 95 09/14/17 00:00 55 09/13/17 20:00 Room Air 09/13/17 16:07 98.0 74 20 138/68 (91) 97 09/13/17 16:00 70 -: 09/12/17 1326 09/14/17 0825 Physical Exam General Appearance: Well Developed, Well Nourished Neck Neck Exam: Neck Supple Pulmonary Resp Exam: Clear Bilaterally, Breath Sounds Equal, Decreased Bases Cardiology CV Exam: Regular, Normal Sinus Rhythm Gastrointestinal/Abdomen GI Exam: Soft, Non-Tender, Bowel Sounds Present Genitourinary Exam: Flank Non-Tender Musculoskeletal MS Exam: Unable to Ambulate Extremeties Extremities Exam: No Edema Assessment/Plan Problem List: (1) ESRD (end stage renal disease) ICD Codes: N18.6 - End stage renal disease Plan: Continue dialysis MWF. Avoid Gadolinium. more alert today vascular US done Monitor fluid and electrolytes. (2) Type 2 diabetes mellitus with diabetic chronic kidney disease ICD Codes: E11.22 - Type 2 diabetes mellitus with diabetic chronic kidney disease Plan: BS well controlled overnight insulin coverage maintain blood glucose between 140 and 180 (3) HTN (hypertension) ICD Codes: I10 - Essential (primary) hypertension Status: Chronic Plan: Blood pressure well controlled continue Norvasc, clonidine, hydralazine, and metoprolol (4) Knee effusion, left ICD Codes: M25.462 - Effusion, left knee Status: Acute Plan: s/p arthrocentesis. S/p I & D. Seen by ortho and ID. septic arthritis. Streptococcus pneumoniae in the Gram stain. Linus Bangura MD Sep 14, 2017 12:08
[2017-09-14] MEDS ORDERED: PARI1 PO (13:17)
[2017-09-14] MEDS ORDERED: Lactulose Liq PO (13:17)
[2017-09-14] MEDS ORDERED: CEFA2SOL IV (13:52)
--- NOTE | 2017-09-14 14:04 | HHI.DCPOC ---
Discharge Care Plan Diagnosis: (1) Knee effusion, left (2) Acute renal failure superimposed on stage 4 chronic kidney disease (3) HTN (hypertension) (4) Confusion (5) Type 2 diabetes mellitus with diabetic chronic kidney disease Goals to Promote Your Health * To prevent worsening of your condition and complications * To maintain your health at the optimal level Directions to Meet Your Goals Take your medications as prescribed Follow your dietary instruction Follow activity as directed Keep your appointments as scheduled Take your immunizations and boosters as scheduled If your symptoms worsen call your PCP, if no PCP go to Urgent Care Center or Emergency Room Smoking is Dangerous to Your Health. Avoid second hand smoke Call the 24-hour hour crisis hotline for domestic abuse at Charito Macdonald Sep 14, 2017 14:04
[2017-09-14] MEDS ORDERED: LEVEMIR SQ (14:43)
--- NOTE | 2017-09-14 15:16 | RADRPT ---
EXAM DATE/TIME: 09/14/2017 14:37 [facility] COMPARISON: CT BRAIN W/O CONTRAST, September 01, 2017, 19:42. INDICATIONS : Altered mental status. MEDICAL HISTORY : Carcinoma, breast. Hypertension. Renal failure, chronic. SURGICAL HISTORY : Left breast lumpectomy. ENCOUNTER: Initial ACUITY: 1 day PAIN SCORE: 0/10 LOCATION: head TECHNIQUE: Multiplanar, multisequence MRI of the brain was performed without contrast. FINDINGS: CEREBRUM: The ventricles are normal for age. No evidence of midline shift, mass lesion, hemorrhage or acute in farction. No extraaxial fluid collections are seen. The pituitary gland and suprasellar cistern are normal in configuration. WHITE MATTER: Mild periventricular and deep white matter microvascular ischemic demyelinization.. POSTERIOR FOSSA: The cerebellum and brainstem are intact. The 4th ventricle is midline. The cerebellopontine angle is unremarkable. The cerebellar tonsils are normal in position. DIFFUSION IMAGING: No focal areas of restricted diffusion are seen. No evidence of acute infarction. EXTRACRANIAL: The visualized portions of the orbits and paranasal sinuses are unremarkable. CONCLUSION: Normal examination for a patient of this age. Benji Knapp MD on September 14, 2017 at 15:11 Board Certified Radiologist. This report was verified electronically.
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
== END 2017-09-14 17:10 | DRG 485 ==
LOC: NEPC 10:20 → NEDA 13:48 → N06A 15:51 → N04A 08-31 13:30
PROVIDERS: ADMIT Hospitalist; ATTEND Hospitalist
PROC: 0S9D3ZX Drainage of Left Knee Joint, Percutaneous Approach, Diagnostic (ICD-10-PCS; 2017-08-29)
PROC: 0S9D0ZX Drainage of Left Knee Joint, Open Approach, Diagnostic (ICD-10-PCS; 2017-08-31)
PROC: 0SBD0ZZ Excision of Left Knee Joint, Open Approach (ICD-10-PCS; principal; 2017-08-31 09:57)
PROC: 05HM33Z Insertion of Infusion Device into Right Internal Jugular Vein, Percutaneous Approach (ICD-10-PCS; 2017-09-02)
PROC: 5A1D70Z Performance of Urinary Filtration, Intermittent, Less than 6 Hours Per Day (ICD-10-PCS; 2017-09-02)
PROC: 05HM33Z Insertion of Infusion Device into Right Internal Jugular Vein, Percutaneous Approach (ICD-10-PCS; 2017-09-09)
DX: M00.262 Other streptococcal arthritis, left knee (principal); N18.6 End stage renal disease; N17.9 Acute kidney failure, unspecified; G93.49 Other encephalopathy; E87.0 Hyperosmolality and hypernatremia; E11.22 Type 2 diabetes mellitus with diabetic chronic kidney disease; I48.91 Unspecified atrial fibrillation; E86.0 Dehydration; R44.3 Hallucinations, unspecified; I12.0 Hypertensive chronic kidney disease with stage 5 chronic kidney disease or end stage renal disease; B95.4 Other streptococcus as the cause of diseases classified elsewhere; E66.9 Obesity, unspecified; I49.3 Ventricular premature depolarization; M11.262 Other chondrocalcinosis, left knee; I89.0 Lymphedema, not elsewhere classified; M17.0 Bilateral primary osteoarthritis of knee; Z79.4 Long term (current) use of insulin; Z85.3 Personal history of malignant neoplasm of breast; Z99.2 Dependence on renal dialysis
CPT/HCPCS: 36556; 36558; 70450; 70551; 71045; 73564; 74018; 76937; 77001; 80048; 80053; 80074; 81001; 82140; 82550; 82607; 82746; 82948; 83690; 83735; 83970; 84100; 84439; 84443; 84484; 84550; 85025; 85610; 85652; 85730; 86140; 86592; 87015; 87070; 87102; 87116; 87176; 87205; 87206; 89051; 89060; 90935; 93005; 94150; 96374; 96375; 99152; 99153; C1750; C1752; C1769; J0690; J0696; J1100; J1170; J1580; J1644; J1815; J2020; J2060; J2250; J2270; J2405; J2930; J3010; J3370; J7040; J7050; P9047; Q4081

== ENCOUNTER → 2017-11-18 | Outpatient (CLI) | payer MEDICARE ==
[~2017-11-18] MED LIST changes: +AMLO10TA2 PO; -ASPI81TA82 PO; -CALC600T34 PO; +CEFA2SOL IV; +CLON0.1T PO; -ESTR42.5V PV; -FISH1000 PO; +HYDR-3799 PO; +LACT10SO PO; -LISI-372 PO; +Lactulose Liq PO; +METO100T PO; -NOVO7030P2 SQ; +NOVOLOGP2 SQ; +PARI1 PO; +TIMO0.255 EACH EYE; +TIMO0.5S30 LEFT EYE; -TOPR25TA2 PO; -VITA10002 PO
== END ==
LOC: CPRE 10:16
PROVIDERS: ATTEND Surgery
DX: N18.6 End stage renal disease (principal)

== ENCOUNTER → 2017-11-25 | Day surgery (SDC) | payer MEDICARE ==
[~2017-11-25] VITALS: Ht 160 cm; Wt 83.5 kg
[~2017-11-25] MED LIST changes: +BUPIVACAINE HCL PF 0.5% 30 ML VIAL ONE; -CEFA2SOL IV; +CHLORHEXIDINE GLUCONATE 2 % 1 PACK (2 CLOTHS) TOPICAL PRN; +DEXAMETHASONE SOD PHOS 4 MG/ML VIAL IV ONE; +DO NOT ADM ANY ANTICOAGULANT DRUGS PRN; +HEPARIN SODIUM - IV 10,000 UNITS/10 ML VIAL ONE; +HEPARIN-NS/PF INJ 500 ML ONE; +Hemodialysis Vas Acc Cath PRN Heparin 1000 unit/ml Flush IV FLUSH; +Hemodialysis Vas Access Cath PRN NS Lock Flush IV FLUSH; +INSULIN HUMAN REGULAR 1,000 UNITS/10 ML VIAL SQ PRN; +LACTATED RINGER'S 1000 ML IV PRN; +LIDOCAINE HCL 1% PF 5 ML SYRINGE OTHER ONE; -Lactulose Liq PO; +METOPROLOL TARTRATE 25 MG TAB PO PRN; +ONDANSETRON HCL 4 MG/2 ML VIAL IV ONE; -PARI1 PO; +POVIDONE IODINE 5% (ANTISEPSIS KIT) 4 APPLICATIONS EACH NARE PRN; +PROPOFOL 200 MG/20 ML AMP IV ONE; +PROTAMINE SULFATE 50 MG/5 ML VIAL ONE; +SODIUM CHLOR 0.9% 250 ML INJ 250 ML IV ONE; +SODIUM CHLORID 0.9% 500 ML INJ 500 ML IV ONE; +SODIUM CHLORID 0.9% 500 ML IV PRN; +THROMBIN (TOPICAL) 20,000 UNIT SPRAY KIT ONE; -TIMO0.255 EACH EYE; +VANCOMYCIN HCL 1000 MG VIAL ONE; +ePHEDrine/NS 25 MG/5 ML SYRINGE IV ONE
--- NOTE | 2017-11-25 09:48 | HHI.HP ---
History of Present Illness Chief Complaint: ESRD, need for HD History of Present Illness 72 yo female with ESRD needs HD access. RIGHT handed but prior LEFT mastectomy and ALND so presents for RIGHT arm access. No recent changes that would preclude OR. [facility] HD yesterday. Past/Family/Social History Past Medical History ESRD HTN DM osteoarthritis breast CA Past Surgical History mastectomy, LYNN Social History nonsmoker Family History ESRD Home Medications Active Scripts Insulin Detemir Inj (Levemir Inj) 1,000 unit/ 10 ML Vial, 5 UNITS SQ DAILY for Blood Sugar Management for 30 Days, VIAL 0 Refills Do not mix with any other Insulin. Prov:Jarod Dickerson DO 09/14/17 Reported Medications Timolol Opth Drops (Timolol Opth Drops) 0.5 % Soln, 1 DROP LEFT EYE BID for Glaucoma, #1 BOTTLE 0 Refills 11/18/17 Lactulose Liq (Lactulose Liq) 10 Gm/15 Ml Soln, 30 ML PO BID Y for CONSTIPATION , ML 0 Refills 11/18/17 Amlodipine (Amlodipine) 10 Mg Tab, 10 MG PO DAILY for Blood Pressure Management , #30 TAB 0 Refills 08/29/17 Hydralazine HCl (Hydralazine HCl) 25 Mg Tablet, 25 MG PO BID for Blood Pressure Management, #60 TAB 0 Refills 08/29/17 Insulin Aspart Inj (Novolog Inj) 1,000 Unit/10 Ml Vial, 0 SQ DIRECTED for Blood Sugar Management, #10 ML 0 Refills Sliding Scale as directed. 08/29/17 Clonidine (Clonidine) 0.1 Mg Tab, 0.1 MG PO BID for Blood Pressure Management, # 60 TAB 0 Refills 08/29/17 Metoprolol Tartrate (Metoprolol Tartrate) 100 Mg Tab, 100 MG PO BID, #60 TAB 0 Refills 08/29/17 Discontinued Reported Medications Timolol Opth Drops (Timoptic Opth Drops) Unknown Strength Soln, EACH EYE BID for Glaucoma, #1 BOTTLE 0 Refills 08/29/17 Discontinued Scripts Cefazolin Inj (Cefazolin Inj) 2 Gm/50 Ml Bagp, 2 GM IV MOWEFR with dialysis for Infection for 14 Days, BAG 0 Refills Give after each dialysis on -W- from 09/15/17-09/29/17 Prov:Charito Macdonald 09/14/17 Paricalcitol (Zemplar) 1 Mcg Cap, 1 MCG PO DAILY for ESRD, #30 CAP Prov:Charito Macdonald 09/14/17 [Lactulose Liq] 30 ML SYRP No Conflict Check, 30 ML PO BID for constipation, #1 BOTTLE Prov:Charito Macdonald 09/14/17 Coded Allergies: lactose (Verified Allergy, Unknown, NAUSEA, CRAMPING, DIARRHEA, 11/25/17) Review of Systems Constitutional: DENIES: Diaphoretic episodes, Fatigue, Fever, Weight gain, Weight loss, Chills, Dizziness, Change in appetite, Night Sweats Physical Exam Vitals/I&O Date Time Temp Pulse Resp B/P (MAP) Pulse Ox O2 Delivery O2 Flow Rate FiO2 11/25/17 09:09 98.3 55 20 121/61 (81) 98 Neuro: alert, oriented, no distress HEENT: NC/AT Neck: no JVD Heart: reg rate, no M Lungs: clear B Abdomen: soft NT Vascular: palpable UE pulses Extremities: no rashes R UE Laboratory Tests Test 11/25/17 08:53 Potassium Level 4.0 duplex reviewed: cephalic vein 4.1 - 4.7 - 4.6 Caprini VTE Risk Assessment Caprini VTE Risk Assessment: No/Low Risk (score <= 1) Caprini Risk Assessment Model Point Value = 1 Point Value = 2 Point Value = 3 Point Value = 5 Age 41-60 Minor surgery BMI > 25 kg/m2 Swollen legs Varicose veins or History of unexplained or recurrent spontaneous Oral contraceptives or hormone replacement Sepsis (< 1 month) Serious lung disease, including pneumonia (< 1 month) Abnormal pulmonary function Acute myocardial infarction Congestive heart failure (< 1 month) History of inflammatory bowel disease Medical patient at bed rest Age 61-74 Arthroscopic surgery Major open surgery (> 45 min) Laparoscopic surgery (> 45 min) Malignancy Confined to bed (> 72 hours) Immobilizing plaster cast Central venous access Age >= 75 History of VTE Family history of VTE Factor V Leiden Prothrombin [id number] Lupus anticoagulant Anticardiolipin antibodies Elevated serum homocysteine Heparin-induced thrombocytopenia Other congenital or acquired thrombophilia Stroke (< 1 month) Elective arthroplasty Hip, pelvis, or leg fracture Acute spinal cord injury (< 1 month) Prophylaxis Regimen Total Risk Factor Score Risk Level Prophylaxis Regimen 0-1 Low Early ambulation 2 Moderate Order ONE of the following: *Sequential Compression Device (SCD) *Heparin 5000 units SQ BID 3-4 Higher Order ONE of the following medications: *Heparin 5000 units SQ TID *Enoxaparin/Lovenox 40 mg SQ daily (WT < 150 kg, CrCl > 30 mL/min) *Enoxaparin/Lovenox 30 mg SQ daily (WT < 150 kg, CrCl > 10-29 mL/min) *Enoxaparin/Lovenox 30 mg SQ BID (WT < 150 kg, CrCl > 30 mL/min) AND/OR *Sequential Compression Device (SCD) 5 or more Highest Order ONE of the following medications: *Heparin 5000 units SQ TID (Preferred with Epidurals) *Enoxaparin/Lovenox 40 mg SQ daily (WT < 150 kg, CrCl > 30 mL/min) *Enoxaparin/Lovenox 30 mg SQ daily (WT < 150 kg, CrCl > 10-29 mL/min) *Enoxaparin/Lovenox 30 mg SQ BID (WT < 150 kg, CrCl > 30 mL/min) AND *Sequential Compression Device (SCD) Assessment and Plan Plan RIGHT brachiocephalic AVF Discharge Planning discharge later today family [phone] Vu Hyde MD Nov 25, 2017 09:48
--- NOTE | 2017-11-25 11:26 | HHI.PR ---
cc: Vu Hyde MD Immediate Post Op Note Procedure Date: Nov 25, 2017 Pre Op Diagnosis: ESRD, need for HD access Post Op Diagnosis: ESRD, need for HD access Surgeon: Vu Hyde Ophthalmic Technician(s): Audrey Allen Procedure: RIGHT brachiocephalic AVF Findings: 3mm vein, 5mm artery Additional Information: good thrill in AVF + Doppler signal in wrist Complications: none apparent Specimen(s) removed: none Estimated blood loss: 10mL Anesthesia: LMA Drains: None Fluids: 750mL IVF Patient to: PACU Patient Condition: Good Date/Time of Procedure: SEE SURGICAL CARE RECORD Vu Hyde MD Nov 25, 2017 11:26
--- NOTE | 2017-11-25 12:51 | MP ---
cc: Vu Hyde MD DATE OF OPERATION: 11/25/2017 PREOPERATIVE DIAGNOSES: End-stage renal disease and need for dialysis access. POSTOPERATIVE DIAGNOSES: End-stage renal disease and need for dialysis access. PROCEDURE PERFORMED: Right brachiocephalic arteriovenous fistula. ATTENDING SURGEON: Vu Hyde MD COMPLAINTS COORDINATOR: Koby Cox. ANESTHESIA: General. INDICATIONS FOR PROCEDURE: Ms. Henry is a 72-year-old female with end-stage renal disease, needs dialysis access. She is a candidate for a right brachiocephalic fistula and was taken to the operating room for this. DESCRIPTION OF PROCEDURE: Informed consent was obtained from the patient, she was taken to the operating room and placed supine on the operating table. An appropriate timeout was taken to ensure the patient's identity, the operative site and procedure. 1 gram of vancomycin was administered prior to skin incision and will be discontinued after single preoperative dose. Everyone in the room agreed with timeout and we proceeded. Right arm was prepped and draped. A transverse incision was made along the antecubital and carried down through the subcutaneous tissue with electrocautery. The cephalic vein was identified, dissected free for several centimeters. Side branches were ligated with 3-0 silk. The vein was marked for orientation, clamped distally and transected. The distal end was oversewn with 3-0 silk. The brachial artery was identified. The medial aspect incision, dissected free and encircled with vessel loop. The patient was systemically heparinized with 3000 units of IV heparin. Proximal and distal control of the brachial artery was obtained with profunda clamps and a longitudinal arteriotomy was made bluntly with [place] scissors. The vein was spatulated and sewn end-to-side to the brachial artery with running 6-0 Prolene suture. At the completion, it was flushed and noted to be hemostatic. There was a nice thrill in the fistula. The wound was infiltrated with Marcaine and closed with 2-0 Polysorb, 3-0 Polysorb and 4-0 Monocryl. The sponge and needle counts were correct at the end of the case. I was present and scrubbed and performed the entire procedure. Vu Hyde MD RJF/VICTOR MANUEL , 12:32 PM , 12:50 PM
[2017-11-25 13:20] VITALS: BP 127/61; PULSE 57; RESP 18; TEMP 97.4; O2SAT 93
== END | disposition home or self-care (01) ==
LOC: HSDC 08:11
PROVIDERS: ATTEND Surgery
DX: N18.6 End stage renal disease (principal); I12.0 Hypertensive chronic kidney disease with stage 5 chronic kidney disease or end stage renal disease; E11.22 Type 2 diabetes mellitus with diabetic chronic kidney disease; Z79.4 Long term (current) use of insulin; Z99.2 Dependence on renal dialysis; Z85.3 Personal history of malignant neoplasm of breast; Z90.12 Acquired absence of left breast and nipple
CPT/HCPCS: 01844; 36818; 84132; 86850; 86900; 86901; J1100; J1644; J2405; J2720; J3010; J3370; J7040; J7050

== ENCOUNTER 2017-12-17 19:53 | Emergency (ER) | payer MEDICARE ==
[~2017-12-17] VITALS: Ht 162.6 cm; Wt 83.6 kg
[~2017-12-17 19:53] MED LIST changes: -BUPIVACAINE HCL PF 0.5% 30 ML VIAL ONE; -CHLORHEXIDINE GLUCONATE 2 % 1 PACK (2 CLOTHS) TOPICAL PRN; -DEXAMETHASONE SOD PHOS 4 MG/ML VIAL IV ONE; -DO NOT ADM ANY ANTICOAGULANT DRUGS PRN; -HEPARIN SODIUM - IV 10,000 UNITS/10 ML VIAL ONE; -HEPARIN-NS/PF INJ 500 ML ONE; -Hemodialysis Vas Acc Cath PRN Heparin 1000 unit/ml Flush IV FLUSH; -Hemodialysis Vas Access Cath PRN NS Lock Flush IV FLUSH; -INSULIN HUMAN REGULAR 1,000 UNITS/10 ML VIAL SQ PRN; -LACTATED RINGER'S 1000 ML IV PRN; -LIDOCAINE HCL 1% PF 5 ML SYRINGE OTHER ONE; -METOPROLOL TARTRATE 25 MG TAB PO PRN; -ONDANSETRON HCL 4 MG/2 ML VIAL IV ONE; -POVIDONE IODINE 5% (ANTISEPSIS KIT) 4 APPLICATIONS EACH NARE PRN; -PROPOFOL 200 MG/20 ML AMP IV ONE; -PROTAMINE SULFATE 50 MG/5 ML VIAL ONE; -SODIUM CHLOR 0.9% 250 ML INJ 250 ML IV ONE; -SODIUM CHLORID 0.9% 500 ML INJ 500 ML IV ONE; -SODIUM CHLORID 0.9% 500 ML IV PRN; -THROMBIN (TOPICAL) 20,000 UNIT SPRAY KIT ONE; -VANCOMYCIN HCL 1000 MG VIAL ONE; -ePHEDrine/NS 25 MG/5 ML SYRINGE IV ONE
[2017-12-17 20:01] VITALS: PULSE 57; TEMP 98; O2SAT 96
[2017-12-17 20:07] VITALS: BP 178/83; PULSE 63; RESP 16; O2SAT 96
[2017-12-17] MEDS ORDERED: SODIUM CHLORIDE 0.9% FLUSH 10 ML FLUSH IVF PRN (20:15)
[2017-12-17 20:35] LABS: AUTOMATED NEUTROPHIL # 3.7 TH/MM3 (1.8-7.7); BASOPHIL % 0.7 % (0.0-2.0); EOSINOPHIL # 0.2 TH/MM3 (0-0.4); EOSINOPHIL % 2.9 % (0.0-4.0); HEMATOCRIT 35.9 % (35.0-46.0); HEMOGLOBIN 11.5 GM/DL (11.6-15.3); LYMPH % 25.9 % (9.0-44.0); LYMPHOCYTE # 1.6 TH/MM3 (1.0-4.8); MEAN CELL VOLUME 91.5 FL (80.0-100.0); MEAN CORPUSCULAR HEMOGLOBIN 29.3 PG (27.0-34.0); MEAN PLATELET VOLUME 8.5 FL (7.0-11.0); MONO % 10.2 % (0.0-8.0); MONOCYTE # 0.6 TH/MM3 (0-0.9); NEUT % 60.3 % (16.0-70.0); PLATELET COUNT 195 TH/MM3 (150-450); RED BLOOD COUNT 3.92 MIL/MM3 (4.00-5.30); RED CELL DISTRIBUTION WIDTH 17.9 % (11.6-17.2); WHITE BLOOD COUNT 6.1 TH/MM3 (4.0-11.0)
--- NOTE | 2017-12-17 20:35 | RADRPT ---
EXAM DATE/TIME: 12/17/2017 20:13 [facility] COMPARISON: No previous studies available for comparison. INDICATIONS : Chest pain. MEDICAL HISTORY : Carcinoma, breast. Hypertension. Renal failure, chronic. SURGICAL HISTORY : Left breast lumpectomy. ENCOUNTER: Initial ACUITY: 1 day PAIN SCORE: 6/10 LOCATION: Bilateral chest FINDINGS: A single view of the chest demonstrates the lungs to be symmetrically aerated without evidence of mas s, infiltrate or effusion. Right IJ line tip in superior vena cava. The cardiomediastinal contours a re unremarkable. Osseous structures are intact. CONCLUSION: 1. Right-sided line in superior vena cava without pneumothorax. No consolidation or effusion. Abram Jackson MD on December 17, 2017 at 20:32 Board Certified Radiologist. This report was verified electronically.
[2017-12-17 20:43] LABS: PROTHROMBIN TIME - PATIENT 9.8 SEC (9.8-11.6)
[2017-12-17 20:53] LABS: ALBUMIN 3.5 GM/DL (3.4-5.0); AST (GOT) 14 U/L (15-37); BICARBONATE 26.2 MEQ/L (21.0-32.0); BLOOD UREA NITROGEN 35 MG/DL (7-18); CALCIUM 8.9 MG/DL (8.5-10.1); CHLORIDE 102 MEQ/L (98-107); CREATININE 3.62 MG/DL (0.50-1.00); GLOMERULAR FILTRATION RATE 15 ML/MIN (>89); GLUCOSE,RANDOM 133 MG/DL (74-106); SODIUM (NA) 138 MEQ/L (136-145)
[2017-12-17 20:54] LABS: ALT (GPT) 18 U/L (10-53)
[2017-12-17 20:58] LABS: ALKALINE PHOSPHATASE 68 U/L (45-117); TOTAL BILIRUBIN ADULT 0.4 MG/DL (0.2-1.0); TOTAL PROTEIN 7.5 GM/DL (6.4-8.2); TROPONIN I LESS THAN 0.02 NG/ML (0.02-0.05)
[2017-12-17] MEDS ORDERED: hydrALAZINE HCL 25 MG TAB PO ONE (21:00)
[2017-12-17] MEDS ORDERED: cloNIDine HCL 0.1 MG TAB PO ONE (21:00)
--- NOTE | 2017-12-17 21:38 | PD ---
HPI Chief Complaint: Chest Pain Time Seen by Provider: 20:03 Travel History International Travel<30 days: No Contact w/Intl Traveler<30days: No Traveled to known affect area: No History of Present Illness HPI This 72-year-old woman who presents to the emergency department from dialysis. She got about two thirds of her dialysis when her blood pressure dropped to the 80s over 40s. She was a little bit lightheaded. They gave her 200 mL's of fluid bolus and her blood pressure came back up, was elevated, and she developed some chest pain. They gave her some nitroglycerin and called EMS. On EMS arrival she was asymptomatic feeling completely fine. She has been asymptomatic since then. She has been on dialysis since August. He otherwise had been feeling generally well and healthy. History Past Medical History Narrative Medical Diabetes Hypertension End-stage renal disease, on hemodialysis Wednesday with Dr. Bangura History of breast cancer, left Social History Alcohol Use: No Tobacco Use: No Allergies-Medications (Allergen,Severity, Reaction): Coded Allergies: lactose (Verified Allergy, Unknown, NAUSEA, CRAMPING, DIARRHEA, 11/25/17) Reported Meds & Prescriptions Reported Meds & Active Scripts Active Levemir Inj (Insulin Detemir) 1,000 unit/ 10 ML Vial 5 Units SQ DAILY 30 Days Do not mix with any other Insulin. Reported Timolol Opth Drops 0.5 % Soln 1 Drop LEFT EYE BID Lactulose Liq (Lactulose) 10 Gm/15 Ml Soln 30 Ml PO BID PRN Amlodipine (Amlodipine Besylate) 10 Mg Tab 10 Mg PO DAILY Hydralazine HCl 25 Mg Tablet 25 Mg PO BID Novolog Inj (Insulin Aspart) 1,000 Unit/10 Ml Vial 0 SQ DIRECTED Sliding Scale as directed. Clonidine (Clonidine HCl) 0.1 Mg Tab 0.1 Mg PO BID Metoprolol Tartrate 100 Mg Tab 100 Mg PO BID Review of Systems Except as stated in HPI: all other systems reviewed are Neg Physical Exam Narrative GENERAL: Well-appearing 72-year-old woman, no acute distress. SKIN: Focused skin assessment warm/dry. HEAD: Atraumatic. Normocephalic. EYES: Pupils equal and round. No scleral icterus. No injection or drainage. ENT: No nasal bleeding or discharge. Mucous membranes pink and moist. NECK: Trachea midline. No JVD. CARDIOVASCULAR: Regular rate and rhythm. No murmur appreciated. RESPIRATORY: No accessory muscle use. Clear to auscultation. Breath sounds equal bilaterally. GASTROINTESTINAL: Abdomen soft, non-tender, nondistended. Hepatic and splenic margins not palpable. MUSCULOSKELETAL: No obvious deformities. No clubbing. No cyanosis. No edema. AV fistula in the right upper arm, maturing, some scarring, palpable thrill. NEUROLOGICAL: Awake and alert. No obvious cranial nerve deficits. Motor grossly within normal limits. Normal speech. PSYCHIATRIC: Appropriate mood and affect; insight and judgment normal. Data Data Last Documented VS Vital Signs Date Time Temp Pulse Resp B/P (MAP) Pulse Ox O2 Delivery O2 Flow Rate FiO2 12/17/17 20:07 63 16 178/83 (114) 96 Room Air 12/17/17 20:01 98.0 Orders Orders Electrocardiogram (12/17/17 20:03) Complete Blood Count With Diff (12/17/17 20:03) Comprehensive Metabolic Panel (12/17/17 20:03) Magnesium (Mg) (12/17/17 20:03) Prothrombin Time / Inr (Pt) (12/17/17 20:03) Act Partial Throm Time (Ptt) (12/17/17 20:03) Troponin I (12/17/17 20:03) Chest, Single Ap (12/17/17 20:03) Ecg Monitoring (12/17/17 20:03) Oximetry (12/17/17 20:03) Sodium Chloride 0.9% Flush (Ns Flush) (12/17/17 20:15) Clonidine (Catapres) (12/17/17 21:00) Hydralazine (Apresoline) (12/17/17 21:00) Electrocardiogram (12/17/17 20:08) Ed Discharge Order (12/17/17 21:38) Labs Laboratory Tests Test 12/17/17 20:17 White Blood Count 6.1 TH/MM3 Red Blood Count 3.92 MIL/MM3 Hemoglobin 11.5 GM/DL Hematocrit 35.9 % Mean Corpuscular Volume 91.5 FL Mean Corpuscular Hemoglobin 29.3 PG Mean Corpuscular Hemoglobin Concent 32.0 % Red Cell Distribution Width 17.9 % Platelet Count 195 TH/MM3 Mean Platelet Volume 8.5 FL Neutrophils (%) (Auto) 60.3 % Lymphocytes (%) (Auto) 25.9 % Monocytes (%) (Auto) 10.2 % Eosinophils (%) (Auto) 2.9 % Basophils (%) (Auto) 0.7 % Neutrophils # (Auto) 3.7 TH/MM3 Lymphocytes # (Auto) 1.6 TH/MM3 Monocytes # (Auto) 0.6 TH/MM3 Eosinophils # (Auto) 0.2 TH/MM3 Basophils # (Auto) 0.0 TH/MM3 CBC Comment DIFF FINAL Differential Comment Prothrombin Time 9.8 SEC Prothromb Time International Ratio 1.0 RATIO Activated Partial Thromboplast Time 25.3 SEC Blood Urea Nitrogen 35 MG/DL Creatinine 3.62 MG/DL Random Glucose 133 MG/DL Total Protein 7.5 GM/DL Albumin 3.5 GM/DL Calcium Level 8.9 MG/DL Magnesium Level 2.0 MG/DL Alkaline Phosphatase 68 U/L Aspartate Amino Transf (AST/SGOT) 14 U/L Alanine Aminotransferase (ALT/SGPT) 18 U/L Total Bilirubin 0.4 MG/DL Sodium Level 138 MEQ/L Potassium Level 3.9 MEQ/L Chloride Level 102 MEQ/L Carbon Dioxide Level 26.2 MEQ/L Anion Gap 10 MEQ/L Estimat Glomerular Filtration Rate 15 ML/MIN Troponin I LESS THAN 0.02 NG/ML MDM Medical Decision Making Medical Screen Exam Complete: Yes Emergency Medical Condition: Yes Interpretation(s) My review of EKG: Sinus bradycardia rate of 58, normal axis, normal intervals, no definite evidence of acute ischemia. LABS: CBC is unremarkable. CMP remarkable for mildly elevated BUN and creatinine Glucose 133 Troponin negative Coags unremarkable Chest x-ray: Right-sided blindness. Vena cava without pneumothorax. No consolidation or effusion. Differential Diagnosis Adverse effect of dialysis, ACS, PE, near syncope, other Narrative Course Medical decision making Is a 70-year-old woman who had a hypotensive episode during dialysis followed by brief episode of chest pain, lasting about 5 minutes total. Asymptomatic since then. Asymptomatic now. Labs are reassuring. She is able to stand without any recurrent near syncopal or lightheaded symptoms. She normally walks with a walker. Will recommend outpatient follow-up. Diagnosis Primary Impression: Chronic kidney disease, stage 5 Additional Impression: Chest pain Patient Instructions: General Instructions Additional Instructions: Continue your current medications. Follow-up with your primary doctor tomorrow. Return to the emergency department for any chest pain, trouble breathing, syncope or fainting, or any other new or worsening symptoms. Med/Other Pt SpecificInfo: Prescription(s) given Disposition: 01 DISCHARGE HOME Condition: Stable Davis Liu MD December 17, 2017 21:38
--- NOTE | 2017-12-18 13:54 | EKG ---
Date Performed: 12/17/2017 Time Performed: 20:08:55 PTAGE: 72 years EKG: SINUS BRADYCARDIA MODERATE INTRAVENTRICULAR CONDUCTION DELAY BORDERLINE ECG INTERPRETATION BASED ON A DEFAULT AGE OF 40 YEARS PREVIOUS TRACING 09/05/2017 17.49 Since the previous tracing, no significant change note d DOCTOR: Raffi Rock Interpretating Date/Time 12/18/2017 13:52:45
== END 2017-12-17 22:05 | disposition home or self-care (01) ==
LOC: NEPE 19:53
DX: R07.9 Chest pain, unspecified (principal); E11.22 Type 2 diabetes mellitus with diabetic chronic kidney disease; I12.0 Hypertensive chronic kidney disease with stage 5 chronic kidney disease or end stage renal disease; N18.6 End stage renal disease; R42 Dizziness and giddiness; R00.1 Bradycardia, unspecified; Z99.2 Dependence on renal dialysis; Z79.4 Long term (current) use of insulin; Z79.899 Other long term (current) drug therapy
CPT/HCPCS: 71045; 80053; 83735; 84484; 85025; 85610; 85730; 93005

== ENCOUNTER 2018-01-06 23:07 | Emergency (ER) | payer MEDICARE ==
[~2018-01-06] VITALS: Ht 162.6 cm; Wt 84.0 kg
[2018-01-06 23:29] VITALS: BP 210/94; PULSE 60; RESP 18; TEMP 98.4; O2SAT 98
[2018-01-07] MEDS ORDERED: CALC1CAP PO (03:15)
--- NOTE | 2018-01-07 04:12 | PD ---
HPI Chief Complaint: Abdominal Pain Time Seen by Provider: 03:35 Travel History International Travel<30 days: No Contact w/Intl Traveler<30days: No Traveled to known affect area: No History of Present Illness HPI 72-year-old female presents to the emergency department complaint of abdominal pain and multiple episodes of vomiting. Patient is a hemodialysis patient of the care of Dr. Bangura encouraged her to come to the emergency room for evaluation. No reported fever or chills. Patient is dialyzed on Wednesday. Patient cannot use her right upper extremity as IV access because of recent AV fistula dialysis site 2 weeks which is now maturing and cannot use her left upper extremity due to previous breast cancer and lumpectomy but states that she does have IV access in her left shoulder. Patient does not report hematemesis coffee-ground emesis or bilious emesis. Patient reports since arriving to the emergency department she has had no further nausea or vomiting. No report of diarrhea. Patient denies any chest pain shortness of breath referred neck jaw back shoulder arm pain no mid scapular pain. PFSH Past Medical History Narrative Medical Left breast cancer with chemotherapy radiation therapy and lumpectomy chest pain diabetes dyslipidemia renal failure hemodialysis Wednesday hypertension hysterectomy AV fistula graft; nursing notes reviewed Heart Rhythm Problems: Yes (A FIB) Cancer: Yes (left breast WITH CHEMO AND RADIATION) Cardiovascular Problems: No High Cholesterol: Yes Chest Pain: Yes (MINOR AND NOT FREQUENT) Congestive Heart Failure: No Diabetes: Yes (INSULIN CONTROLLED) Patient Takes Glucophage: No Endocrine: Yes Glaucoma: No Genitourinary: No Hepatitis: No Hiatal Hernia: No Hypertension: Yes Immune Disorder: No Medical other: Yes (arthritis- BOTH KNEES) Musculoskeletal: Yes (ARTHRITIS HANDS) Neurologic: No Psychiatric: No Reproductive: No Respiratory: No Renal Failure: Yes (dialysis M,W,F) Thyroid Disease: No Tetanus Vaccination: Unknown Influenza Vaccination: Yes Past Surgical History Abdominal Surgery: No Cardiac Surgery: No Ear Surgery: No Endocrine Surgery: No Eye Surgery: No Genitourinary Surgery: No Gynecologic Surgery: Yes (hysterectomy-VAGINAL) Hysterectomy: Yes Joint Replacement: No Pacemaker: No Thoracic Surgery: Yes (LEFT BREAST LUMPECTOMY SENTINEL NODE BX) Other Surgery: Yes Social History Alcohol Use: No Tobacco Use: No (60 yr ago) Substance Use: No Allergies-Medications (Allergen,Severity, Reaction): Coded Allergies: lactose (Verified Allergy, Unknown, NAUSEA, CRAMPING, DIARRHEA, 01/06/18) Reported Meds & Prescriptions Reported Meds & Active Scripts Active Levemir Inj (Insulin Detemir) 1,000 unit/ 10 ML Vial 5 Units SQ DAILY 30 Days Do not mix with any other Insulin. Reported Calcium Acetate (Phosphate Binder) 667 Mg Cap Unknown Dose PO TID Timolol Opth Drops 0.5 % Soln 1 Drop LEFT EYE BID Lactulose Liq (Lactulose) 10 Gm/15 Ml Soln 30 Ml PO BID PRN Amlodipine (Amlodipine Besylate) 10 Mg Tab 10 Mg PO DAILY Hydralazine HCl 25 Mg Tablet 25 Mg PO BID Novolog Inj (Insulin Aspart) 1,000 Unit/10 Ml Vial 0 SQ DIRECTED Sliding Scale as directed. Clonidine (Clonidine HCl) 0.1 Mg Tab 0.1 Mg PO BID Metoprolol Tartrate 100 Mg Tab 100 Mg PO BID Review of Systems Except as stated in HPI: all other systems reviewed are Neg General / Constitutional: No: Fever, Chills HENT: No: Congestion Cardiovascular: No: Chest Pain or Discomfort, Palpitations, Diaphoresis Respiratory: No: Shortness of Breath Gastrointestinal: Positive: Nausea, Vomiting, Abdominal Pain (generalized), No : Diarrhea, Hematemesis, Hematochezia Genitourinary: No: Flank Pain Musculoskeletal: No: Myalgias, Arthralgias Skin: No Rash Neurologic: No: Weakness, Dizziness Psychiatric: No: Anxiety Hematologic/Lymphatic: No: Lymph Node Enlargement Physical Exam Narrative GENERAL: Well-developed well-nourished female no acute distress no respiratory distress SKIN: Warm and dry. HEAD: Normocephalic. EYES: No scleral icterus. No injection or drainage. NECK: Supple, trachea midline. No JVD or lymphadenopathy. CARDIOVASCULAR: Regular rate and rhythm without murmurs, gallops, or rubs. RESPIRATORY: Breath sounds equal bilaterally. No accessory muscle use. GASTROINTESTINAL: Abdomen soft, non-tender, nondistended. MUSCULOSKELETAL: No cyanosis, or edema. BACK: Nontender without obvious deformity. No CVA tenderness. Data Data Last Documented VS Vital Signs Date Time Temp Pulse Resp B/P (MAP) Pulse Ox O2 Delivery O2 Flow Rate FiO2 01/07/18 05:30 70 16 154/69 (97) 93 Room Air 01/06/18 23:29 98.4 Orders Orders Complete Blood Count With Diff (01/07/18 03:04) Comprehensive Metabolic Panel (01/07/18 03:04) Urinalysis - C+S If Indicated (01/07/18 03:04) Iv Access Insert/Monitor (01/07/18 03:04) Oxygen Administration (01/07/18 03:04) Oximetry (01/07/18 03:04) Lipase (01/07/18 03:04) Sodium Chlorid 0.9% 500 Ml Inj (Ns 500 M (01/07/18 07:00) Labs Laboratory Tests Test 01/07/18 04:00 White Blood Count 6.4 TH/MM3 Red Blood Count 4.69 MIL/MM3 Hemoglobin 13.9 GM/DL Hematocrit 43.5 % Mean Corpuscular Volume 92.8 FL Mean Corpuscular Hemoglobin 29.6 PG Mean Corpuscular Hemoglobin Concent 31.9 % Red Cell Distribution Width 17.8 % Platelet Count 232 TH/MM3 Mean Platelet Volume 8.4 FL Neutrophils (%) (Auto) 73.8 % Lymphocytes (%) (Auto) 20.5 % Monocytes (%) (Auto) 5.0 % Eosinophils (%) (Auto) 0.2 % Basophils (%) (Auto) 0.5 % Neutrophils # (Auto) 4.8 TH/MM3 Lymphocytes # (Auto) 1.3 TH/MM3 Monocytes # (Auto) 0.3 TH/MM3 Eosinophils # (Auto) 0.0 TH/MM3 Basophils # (Auto) 0.0 TH/MM3 CBC Comment DIFF FINAL Differential Comment Blood Urea Nitrogen 46 MG/DL Creatinine 5.78 MG/DL Random Glucose 142 MG/DL Total Protein 8.7 GM/DL Albumin 3.9 GM/DL Calcium Level 9.9 MG/DL Alkaline Phosphatase 90 U/L Aspartate Amino Transf (AST/SGOT) 16 U/L Alanine Aminotransferase (ALT/SGPT) 19 U/L Total Bilirubin 0.3 MG/DL Sodium Level 142 MEQ/L Potassium Level 4.6 MEQ/L Chloride Level 101 MEQ/L Carbon Dioxide Level 28.7 MEQ/L Anion Gap 12 MEQ/L Estimat Glomerular Filtration Rate 9 ML/MIN Lipase 185 U/L MDM Medical Decision Making Medical Screen Exam Complete: Yes Emergency Medical Condition: Yes Medical Record Reviewed: Yes Interpretation(s) CBC & BMP Diagram 01/07/18 04:00 Total Protein 8.7 H, Albumin 3.9, Calcium Level 9.9, Alkaline Phosphatase 90, Aspartate Amino Transf (AST/SGOT) 16, Alanine Aminotransferase (ALT/SGPT) 19, Total Bilirubin 0.3 Vital Signs Date Time Temp Pulse Resp B/P (MAP) Pulse Ox O2 Delivery O2 Flow Rate FiO2 01/07/18 05:30 70 16 154/69 (97) 93 Room Air 01/07/18 04:30 69 16 189/84 (119) 98 Room Air 01/06/18 23:29 98.4 60 18 210/94 (132) 98 Differential Diagnosis Abdominal pain, gastritis peptic ulcer disease pancreatitis ascites UTI sepsis chest pain arrhythmia electrolyte disturbance Narrative Course IV access obtained; patient extremely difficult IV access only able to obtain a 22-gauge to the left shoulder; specimens collected and sent for resulting Patient feels well no nausea no vomiting no abdominal pain also continues to deny any chest pain or shortness of breath. Patient also has had no orthopnea or PND. No report of hematemesis coffee-ground emesis or bilious emesis. Renal function has worsened slightly; patient is aware of lab results remains asymptomatic; call placed to her e business manager would like her to keep appointment for hemodialysis It is 7:39 AM and patient feels well will discharge patient home with prescription for Zofran Physician Communication Physician Communication discussed with dr Zabala Diagnosis Primary Impression: Vomiting Additional Impression: Acute renal failure superimposed on stage 4 chronic kidney disease Referrals: Linus Bangura MD 1 day Patient Instructions: General Instructions Additional Instructions: Recommend following clear liquid diet for next 6-12 hours advance as tolerated to bland/brat diet and as tolerated advance to regular diabetic diet Take Zofran as prescribed as needed for nausea and/or vomiting Follow-up with your e business manager keep appointment with your dialysis facility Return to the emergency department for any concerns or change in condition Med/Other Pt SpecificInfo: Prescription(s) given Scripts Ondansetron Odt (Zofran Odt) 4 Mg Tab 4 MG SL Q6HR Y for Nausea/Vomiting, #10 TAB 0 Refills Prov: Amanda Turk MD 01/07/18 Disposition: 01 DISCHARGE HOME Condition: Stable Amanda Turk MD January 07, 2018 04:12
[2018-01-07 04:18] LABS: AUTOMATED NEUTROPHIL # 4.8 TH/MM3 (1.8-7.7); BASOPHIL % 0.5 % (0.0-2.0); EOSINOPHIL % 0.2 % (0.0-4.0); HEMATOCRIT 43.5 % (35.0-46.0); HEMOGLOBIN 13.9 GM/DL (11.6-15.3); LYMPH % 20.5 % (9.0-44.0); LYMPHOCYTE # 1.3 TH/MM3 (1.0-4.8); MEAN CELL VOLUME 92.8 FL (80.0-100.0); MEAN CORPUSCULAR HEMOGLOBIN 29.6 PG (27.0-34.0); MEAN CORPUSCULAR HGB CONC 31.9 % (32.0-36.0); MEAN PLATELET VOLUME 8.4 FL (7.0-11.0); MONOCYTE # 0.3 TH/MM3 (0-0.9); NEUT % 73.8 % (16.0-70.0); PLATELET COUNT 232 TH/MM3 (150-450); RED BLOOD COUNT 4.69 MIL/MM3 (4.00-5.30); RED CELL DISTRIBUTION WIDTH 17.8 % (11.6-17.2); WHITE BLOOD COUNT 6.4 TH/MM3 (4.0-11.0)
[2018-01-07 04:30] VITALS: BP 189/84; PULSE 69; RESP 16; O2SAT 98
[2018-01-07 04:31] LABS: ALBUMIN 3.9 GM/DL (3.4-5.0); ALT (GPT) 19 U/L (10-53); AST (GOT) 16 U/L (15-37); BICARBONATE 28.7 MEQ/L (21.0-32.0); BLOOD UREA NITROGEN 46 MG/DL (7-18); CALCIUM 9.9 MG/DL (8.5-10.1); CHLORIDE 101 MEQ/L (98-107); CREATININE 5.78 MG/DL (0.50-1.00); GLOMERULAR FILTRATION RATE 9 ML/MIN (>89); GLUCOSE,RANDOM 142 MG/DL (74-106); SODIUM (NA) 142 MEQ/L (136-145)
[2018-01-07 04:33] LABS: ALKALINE PHOSPHATASE 90 U/L (45-117); TOTAL BILIRUBIN ADULT 0.3 MG/DL (0.2-1.0); TOTAL PROTEIN 8.7 GM/DL (6.4-8.2)
[2018-01-07 05:30] VITALS: BP 154/69; PULSE 70; RESP 16; O2SAT 93
[2018-01-07] MEDS ORDERED: SODIUM CHLORID 0.9% 500 ML INJ 500 ML IV ONE (07:00)
[2018-01-07 07:05] VITALS: BP 145/79; PULSE 82; RESP 15; TEMP 98; O2SAT 99
[2018-01-07] MEDS ORDERED: ZOFR4TAB3 SL (07:40)
[2018-01-07 08:49] VITALS: BP 147/88; TEMP 98
== END 2018-01-07 08:50 | disposition home or self-care (01) ==
LOC: NEPC 23:07
DX: R11.2 Nausea with vomiting, unspecified (principal); E11.22 Type 2 diabetes mellitus with diabetic chronic kidney disease; I12.9 Hypertensive chronic kidney disease with stage 1 through stage 4 chronic kidney disease, or unspecified chronic kidney disease; N18.4 Chronic kidney disease, stage 4 (severe); Z79.4 Long term (current) use of insulin; Z99.2 Dependence on renal dialysis; Z85.3 Personal history of malignant neoplasm of breast
CPT/HCPCS: 36000; 80053; 83690; 85025; 96360; 99284; J7040

== ENCOUNTER 2018-07-29 08:11 | Observation (INO) ==
[2018-07-29] MEDS ORDERED: Metoprolol Tartrate 25 MG Tablet PO ONE (08:23)
[2018-07-29] MEDS ORDERED: Chlorhexidine Gluconate 2% 1 Pack (2 Cloths) TOPICAL ONE (08:23)
[2018-07-29] MEDS ORDERED: ceFAZolin 2 GM IV; once IV.SIG SCH (08:30)
[2018-07-29] MEDS ORDERED: Sodium Chlor 0.9% Inj 500 ML IV.SIG SCH (09:00)
--- NOTE | 2018-07-29 09:47 | MH ---
cc: Radha Nielson MD DATE OF ADMISSION: 07/29/2018 PRINCIPAL DIAGNOSIS: Left breast cancer. HISTORY OF PRESENT ILLNESS: The patient is a 72-year-old female with dialysis-dependent end-stage renal disease. She normally gets dialysis on Wednesday, Wednesday, and Wednesday. She also has type 2 insulin-dependent diabetes mellitus. She had a left breast lumpectomy, followed by a MARTA accelerated partial breast radiation procedure, and sentinel biopsy in 05/2009 for stage IA invasive ductal carcinoma. The tumor was ER/PA negative, but HER2/isidro 3+. She also completed a year of trastuzumab, and is followed by Dr. Lund. Her last visit was in 04/2011. A bilateral diagnostic mammogram with tomosynthesis on 02/22/2018, as well as a left breast ultrasound demonstrated a 4.5 cm seroma at the previous 3 o'clock lumpectomy site. There were pleomorphic microcalcifications in the upper outer left breast, and stereotactic biopsy was recommended. This was performed on 05/05/2018, and demonstrated a focus of ductal carcinoma in situ with intermediate nuclear grade. She has opted for mastectomy, and now presents for the procedure. MEDICAL PROBLEMS: Include type 2 insulin-dependent diabetes mellitus, hypertension, end-stage renal disease, breast cancer, and atrial fibrillation. PAST SURGICAL HISTORY: Included a vaginal hysterectomy and unilateral oophorectomy in 1978, left breast lumpectomy and sentinel lymph node biopsy in 2008, incision and drainage of a left knee infection in 08/2017, and placement of a right upper arm AV fistula for dialysis. ALLERGIES: SHE HAS NO DRUG ALLERGIES, BUT HAS AN ADVERSE REACTION TO OPIOIDS WITH CONFUSION AND DELIRIUM. CURRENT MEDICATIONS: Include amlodipine 10 mg daily, calcium, clonidine 0.1 mg t.i.d., Lasix 1 tablet daily, hydrochlorothiazide 25 mg daily, metoprolol 100 mg b.i.d., NovoLog 100 units, as well as Levemir 100 units subcutaneously daily, Synthroid 50 mcg daily, losartan 1 tablet daily. She took hormone replacement for 10 years, but stopped in 2005. She is not taking any anticoagulant. FAMILY HISTORY: Noncontributory. REVIEW OF SYSTEMS: A 12-point review of systems is significant for eyesight problems, palpitations, and joint pain. PHYSICAL EXAMINATION: VITAL SIGNS: She was 5 feet 4 inches, weight 182 pounds with a BMI of 31. Blood pressure was 206/90, temperature 97, heart rate 68, respirations 16. HEENT: Pupils were equal, round, reactive to light with a normal ocular range of motion. She had an upper full denture and a lower partial denture. NECK: Supple with no adenopathy or thyromegaly. LUNGS: Clear throughout. CARDIAC: Revealed minimal edema in the left upper arm and a right upper arm AV fistula, as well as a right subclavian dialysis port, which was noninfected. She had a regular rate and rhythm. BREASTS: Revealed hypertrophy, and the left breast was larger than the right. There was a 3 cm inferolateral quadrant mass palpable in the left breast, consistent with the previous MARTA seroma cavity. There was also some induration of the left breast between 3 and 5 o'clock. ABDOMEN: Unremarkable. MUSCULOSKELETAL: Significant for a left knee scar. The remainder of her exam was unremarkable. IMPRESSION AND PLAN: Ms. Mojica has recurrent left breast cancer with a new diagnosis of stage 0 disease. She has opted for mastectomy, and because of her comorbidities, we will have the surgery at [facility] with 23-hour admission. We will not do cheri staging, and we will coordinate her dialysis with her tire shop manager. MD MIRELLA Cruz/august , 10:37 AM , 10:49 AM
[2018-07-29] MEDS ORDERED: EPINEPHrine PF/SF Inj 1 MG/ML Ampul I-OCULAR ONE (10:17)
[2018-07-29] MEDS ORDERED: Isosulfan Blue Inj 50 MG/5 ML Vial SQ ONE (10:17)
[2018-07-29] MEDS ORDERED: Bupivacaine/Epinephrine PF Inj 0.5% 30 ML Vial ONE (10:17)
[2018-07-29] MEDS ORDERED: Lidocaine PF 1% Inj 5 ML Syringe OTHER ONE (10:34)
[2018-07-29] MEDS ORDERED: fentaNYL Citrate Inj 100 MCG/2 ML Ampul ONE (12:47)
[2018-07-29] MEDS ORDERED: Dextrose 50% in Water 50 ML Vial IV.PUSH PRN ×3 (12:57→16:42)
[2018-07-29] MEDS ORDERED: Morphine Inj 4 MG/ML Vial ONE (13:39)
--- NOTE | 2018-07-29 13:46 | MP ---
cc: Radha Nielson MD DATE OF OPERATION: 07/29/2018 DATE OF SURGERY: 07/29/2018 PREOPERATIVE DIAGNOSIS: Recurrent carcinoma of the left breast. POSTOPERATIVE DIAGNOSIS: Recurrent carcinoma of the left breast. PROCEDURE PERFORMED: Left mastectomy. SURGEON: Radha Nielson MD ANESTHESIA: General via LMA device. INDICATION: The patient is a 72-year-old female with multiple medical problems including insulin-dependent diabetes and end-stage renal disease requiring dialysis. 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 She has opted for left mastectomy and now presents for the procedure. FINDINGS AT THE TIME OF SURGERY: There was significant indurated tissue and skin change at the site of her prior cancer. There was no adenopathy and no obvious new masses. DESCRIPTION OF PROCEDURE: After informed consent was obtained and site verification was performed, the patient was brought to the major operating room where she underwent general anesthesia via an LMA device. The left breast was prepped and draped in sterile fashion. She was given a single dose of IV Ancef and sequential compression hose were placed. In order to remove the indurated tissue and involved skin at 6 o'clock, it was elected to proceed with a Paulino mastopexy anterior incision. Tumescent solution 180 mL mixed with 30 mL of Marcaine with epinephrine were infiltrated circumferentially around the breast in the plane between the subcutaneous fat and anterior breast fascia. Sharp dissection was performed in a periareolar fashion to excise the involved skin and indurated tissue at 6 o'clock and an inframammary crease extension was also created sharply. Through this incision, sharp dissection was performed in the plane between the subcutaneous fat and anterior breast fascia medially to the parasternal area, laterally to the axilla, superiorly to the clavicle, and inferiorly to the anterior rectus sheath. The breast tissue was then dissected off the pectoralis muscle including the pectoralis fascia with the specimen. The breast was oriented with the skin anterior, 1 short suture superiorly, and 1 long suture laterally. Some tissue in the axillary tail of [facility] was dissected free from surrounding structures using the Harmonic scalpel and this was sent as a separate specimen. Good hemostasis was noted. A stab wound was created along the lateral chest wall and a 10-Greek Antony drain was placed along the chest wall and secured to the skin with a 3-0 nylon suture. The wound was then closed using interrupted 3-0 Vicryl subcutaneous sutures and a 4-0 Monocryl subcuticular suture. Steri-Strips and a sterile dressing were applied. The patient tolerated the procedure well with a blood loss of 100 mL and she was extubated in the operating room and brought to the recovery room in good condition. MD MIRELLA Cruz/sean , 12:46 PM , 12:55 PM
[2018-07-29] MEDS ORDERED: Morphine Inj 4 MG/ML Vial IV.PUSH PRN (14:39)
--- NOTE | 2018-07-29 17:16 | P.CON ---
History of Present Illness Service: [facility] hospitalist service Consult date: 07/29/18 Requesting Physician: Radha Nielson Reason for Consult: Postop medical management Primary Care Provider: Simon Osorio History of Present Illness: HPI: This is a 72-year-old black female that I have been asked to see by Dr. Nunez who performed a left mastectomy earlier today. She is requesting that I see her for management of her medications and diabetes. Patient is doing well postop with no current complaints. She is apparently going to be kept overnight and possibly discharge tomorrow morning. She has diabetes mellitus mellitus for which she uses insulin, hypertension, end-stage renal disease on dialysis. Medical history: Hypertension Chronic renal failure on dialysis 3 times a week for the last 11 months Type 2 diabetes mellitus on insulin therapy Cancer of the left breast with mastectomy done today. Prior history of left breast cancer in 2008 with lumpectomy radiation therapy and chemotherapy. Diverticulosis History of colon polyps No history of heart disease, lung disease, liver disease, stroke, seizures. Surgical history: Vaginal hysterectomy and removal of one ovary (she does not know which one). She had a rectocele repair at the same time. Prior left breast lumpectomy and sentinel lymph node biopsy in 2008 Left mastectomy 07/29/2018 Colonoscopy on 07/13/01 with a polyp found and diverticulosis. Another colonoscopy on 07-10-08 showed a polyp and diverticulosis. Another colonoscopy 03-30-13 showed no polyp but mild sigmoid diverticulosis Allergies: No drug allergies. She is lactose intolerant. Medications: Levemir insulin 9 units at bedtime Clonidine 0.1 mg 3 times a day Amlodipine 10 mg daily NovoLog insulin per sliding scale for a blood sugar of >150 Calcium acetate 667 mg 2 tablets 3 times a day before meals Metoprolol 100 mg twice a day Timolol eyedrops 0.5% 1 drop of the left eye twice a day Family history: Her sister at age 73 of colon cancer Her mother at 53 of diabetes complications Her father at 62 of a stroke he had hypertension as well Social history: She quit smoking over 50 years ago and smoked less than 1 pack a day for 5 years. She does not use alcohol. She is a . 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 HEENT: No sore throat, runny nose, earache. Cardiovascular: No chest pain, heart palpitations, shortness of breath, orthopnea. Pulmonary: No cough, shortness of breath, hemoptysis, pleuritic chest pain Gastrointestinal: No nausea, vomiting, abdominal pain, heartburn, indigestion, diarrhea, constipation, melena, rectal bleeding. : No dysuria, hematuria, urgency, frequency, incontinence. Musculoskeletal: Negative Psychiatry: No significant anxiety or depression Extremities: No edema Dermatology: No rash or itching Neuro: No headache, confusion, motor weakness, numbness or tingling Physical exam: This is a pleasant [] in no distress. HEENT: Pupils equal, EOMs intact, sclera nonicteric, mouth without lesions, TMs intact, nose without lesions. Upper and lower dentures. Neck: No JVD, neck is supple, no carotid bruit Heart: Regular rate and rhythm without murmurs or gallops Lungs: Clear to auscultation Abdomen: Soft, nontender, no masses, no organomegaly Extremities: No edema, pulses palpated, no calf tenderness Skin: Without lesions or rash Neuro: Alert, oriented, normal motor exam, sensation intact, cranial nerves intact Assessment: 1)Cancer of the left breast with left mastectomy earlier today 2) Type 2 diabetes mellitus 3) Hypertension 4) Chronic renal failure on hemodialysis 5) Hx of prior left breast cancer in 2008 with lumpectomy, radiation and chemotherapy 6) Diverticulosis 7) Hx of colon polyps Plan: She has been started on a diet postop. Her medications will be reconciled. We will resume her Levemir insulin 9 units tonight at bedtime. We will just monitor her with a sliding scale every 6 hours with a low scale NovoLog injection. She has SCDs in place for DVT prophylaxis. Review of Systems Review of systems: General: No fever, chills, sweats. HEENT: No sore throat, runny nose, earache. Cardiovascular: No chest pain, heart palpitations, shortness of breath, orthopnea. Pulmonary: No cough, shortness of breath, hemoptysis, pleuritic chest pain Gastrointestinal: No nausea, vomiting, abdominal pain, heartburn, indigestion, diarrhea, constipation, melena, rectal bleeding. : No dysuria, hematuria, urgency, frequency, incontinence. Musculoskeletal: Negative Psychiatry: No significant anxiety or depression Extremities: No edema Dermatology: No rash or itching Neuro: No headache, confusion, motor weakness, numbness or tingling PMFSH - History History Provided By: Patient - Medical History Medical History: Medical History (Last Updated 07/27/18 @ 11:08 by Eun Toledo RN) A-fib AV fistula Breast cancer Diabetes mellitus Dialysis patient ESRD (end stage renal disease) Hypertension - Surgical History Surgical History: Surgical History (Last Updated 07/27/18 @ 11:08 by Eun Toledo RN) H/O vaginal hysterectomy History of lumpectomy of left breast History of unilateral oophorectomy - Tobacco History Second Hand Smoke Exposure: No Tobacco Use In Past 30 Days: No Smoking Status: Never smoker Tobacco Type: Cigarettes - Alcohol History How Often Do You Have a Drink Containing Alcohol: Never - Substance Use History Substance History: No History of Abuse - Travel History Recent Travel in the [place] Within the Last 8 Weeks: No Recent Travel Out of the Country Within the Last 8 Weeks: No - Immunization History Tetanus Immunization: Unsure Hx Influenza Vaccine This Season: Yes Medications and Allergies Active Medications: Active Medications Hydrocodone Bitart/Acetaminophen ([place] 5/325) 1 tab PO Q6H PRN PRN Reason: PAIN 5-7 Dextrose (D50w Vial) 50 ml IV.PUSH UNSCH PRN PRN Reason: PER HYPOGLYCEMIA PROTOCOL Dextrose (D50w Vial) 50 ml IV.PUSH UNSCH PRN PRN Reason: PER HYPOGLYCEMIA PROTOCOL Dextrose (D50w Vial) 50 ml IV.PUSH UNSCH PRN PRN Reason: PER HYPOGLYCEMIA PROTOCOL Glucagon (Glucagon Inj) 1 mg OTHER PRN PRN PRN Reason: for Hypoglycemia Protocol Glucagon (Glucagon Inj) 1 mg OTHER PRN PRN PRN Reason: for Hypoglycemia Protocol Glucagon (Glucagon Inj) 1 mg OTHER PRN PRN PRN Reason: for Hypoglycemia Protocol Lactated Ringer's (Lr 1000 Ml Inj) 1,000 mls @ 30 mls/hr IV.SIG .Q24H GOGO Stop: 07/30/18 08:29 Last Admin: 07/29/18 09:35 Dose: 30 mls/hr Sodium Chloride (Ns Inj) 500 mls @ 30 mls/hr IV.SIG .Q10H GOGO Last Admin: 07/29/18 09:43 Dose: Not Given Cefazolin Sodium/Dextrose (Ancef 2 Gm Premix Inj) 2 gm in 50 mls @ 100 mls/hr IV.SIG [facility] Stop: 08/01/18 08:29 Last Infusion: 07/29/18 10:18 Dose: Infused Acetaminophen (Ofirmev Inj) 1,000 mg in 100 mls @ 200 mls/hr IV.SIG Q6H PRN PRN Reason: PAIN SCALE 1 TO 5 Insulin Aspart (Novolog Insulin Correctional Sugar Inj) 0 unit SQ Q6HR GOGO; Protocol Miscellaneous Information ([facility] Nursing Information) 1 each OTHER UNSCH PRN PRN Reason: SEE LABEL COMMENTS Stop: 07/30/18 14:36 Morphine Sulfate (Morphine Inj) 2 mg IV.PUSH Q2H PRN PRN Reason: PAIN 8-10 Ondansetron HCl (Zofran Inj) 4 mg IV.PUSH [facility] Stop: 08/01/18 08:29 Last Admin: 07/29/18 09:47 Dose: 4 mg Ondansetron HCl (Zofran Inj) 4 mg IV.PUSH Q6H PRN PRN Reason: NAUSEA OR VOMITING Allergies Allergy/AdvReac Type Severity Reaction Status Date / Time lactose Allergy Unknown NAUSEA, Verified 01/06/18 23:31 CRAMPING, DIARRHEA Home Medications Medication Instructions Recorded Confirmed Type Levemir U-100 Insulin 9 unit SUBDERMAL DIRECTED 07/27/18 07/29/18 History Novolog Flexpen U-100 Insulin 5 unit SUBDERMAL DIRECTED 07/27/18 07/29/18 History amlodipine 10 mg PO DAILY 07/27/18 07/29/18 History clonidine HCl 0.1 mg PO TID 07/27/18 07/29/18 History Dialyvite 1 mg PO DAILY 07/29/18 07/29/18 History metoprolol tartrate 100 mg PO BID 07/29/18 07/29/18 History timolol maleate 1 drp OPHTHALMIC (EYE) BID 07/29/18 07/29/18 History Physical Exam Vital signs: Vital Signs 07/29/18 09:19 07/29/18 12:45 07/29/18 13:00 Temperature 98.2 F 97.5 F L Pulse Rate 57 L 54 L 51 L Respiratory Rate 18 14 16 Blood Pressure 156/77 H 139/63 126/48 L Pulse Oximetry 95 98 07/29/18 13:15 07/29/18 13:30 07/29/18 13:45 Temperature Pulse Rate 52 L 53 L 54 L Respiratory Rate 16 16 16 Blood Pressure 140/52 L 125/45 L 104/54 L Pulse Oximetry 100 100 98 07/29/18 14:00 07/29/18 14:15 07/29/18 14:30 Temperature 98.3 F Pulse Rate 54 L 55 L 52 L Respiratory Rate 16 16 16 Blood Pressure 118/54 L 110/58 L 112/58 L Pulse Oximetry 98 97 98 Intake & Output 07/28/18 07/29/18 07/29/18 18:59 06:59 18:59 Intake Total 500 / 500 Output Total 30 / Balance 470 / 470 Weight 80.739 kg Intake: IV 50 / 50 Ancef 2 GM Premix Inj 2 gm In 50 / 50 50 ml @ 100 mls/hr IV.SIG [facility] Rx#:[id number] Anesthesia Amount 450 / 450 Output: Wound Drainage 30 Left Breast 30 Other: Weight On Admission 80.739 kg Narrative: This is a pleasant [] in no distress. HEENT: Pupils equal, EOMs intact, sclera nonicteric, mouth without lesions, TMs intact, nose without lesions. Upper and lower dentures. Neck: No JVD, neck is supple, no carotid bruit Heart: Regular rate and rhythm without murmurs or gallops Lungs: Clear to auscultation Abdomen: Soft, nontender, no masses, no organomegaly Extremities: No edema, pulses palpated, no calf tenderness Skin: Without lesions or rash Neuro: Alert, oriented, normal motor exam, sensation intact, cranial nerves intact Results - Labs Labs: Laboratory Results - last 24 hr 07/29/18 07/29/18 09:36 12:48 POC Glucose 138 H 124 H Assessment and Plan - Assessment (1) Cancer of left breast Code(s): C50.912 - Malignant neoplasm of unspecified site of left female breast Status: Chronic (2) Status post left mastectomy Code(s): Z90.12 - Acquired absence of left breast and nipple Status: Acute (3) Hypertension Code(s): I10 - Essential (primary) hypertension Status: Chronic (4) Type 2 diabetes mellitus Code(s): E11.9 - Type 2 diabetes mellitus without complications Status: Chronic (5) End stage chronic kidney disease Code(s): N18.6 - End stage renal disease Status: Chronic (6) Dialysis patient Code(s): Z99.2 - Dependence on renal dialysis Status: Chronic (7) Diverticulosis of colon Code(s): K57.30 - Diverticulosis of large intestine without perforation or abscess without bleeding Status: Acute - Plan She will be resumed on her Levemir insulin at bedtime. She will be covered with a sliding scale every 6 hours with low-dose NovoLog scale. Her home medications will be resumed. SCDs will be used for DVT prophylaxis. Other recommendations for postop care as per Dr. Nunez.
[2018-07-29] MEDS ORDERED: cloNIDine Susp (NICU) 20 MCG/ML 30 ML Bottle PO SCH (18:00)
[2018-07-29] MEDS: Calcium Acetate 667 MG Capsule PO SCH (18:02)
[2018-07-29] MEDS: Insulin NovoLOG Aspart Correctional Sugar Inj SQ SCH (18:03)
[2018-07-29] MEDS ORDERED: Insulin Detemir Inj 1,000 UNIT/10 ML Vial SQ SCH (21:00)
[2018-07-29] MEDS: Metoprolol Tartrate 100 MG Tablet PO SCH (21:55)
[2018-07-29] MEDS: Timolol 0.5% Drops 5 ML Bottle EACH EYE SCH (21:57)
[2018-07-30] MEDS ORDERED: Temazepam 15 MG Capsule PO PRN (00:14)
[2018-07-30] MEDS: Insulin NovoLOG Aspart Correctional Sugar Inj SQ SCH ×2 (00:16→06:15)
[2018-07-30 07:49] LABS: Baso % (Auto) 0.3 % (0.0-2.0); Eos # (Auto) 0.1 th/mm3 (0.0-0.4); Eos % (Auto) 1.6 % (0.0-4.0); Hematocrit 27.9 % (35.0-46.0); Hemoglobin 8.9 gm/dL (11.6-15.3); Lymph # (Auto) 1.5 th/mm3 (1.0-4.8); Mean Corpuscular HGB Conc 31.9 % (32.0-36.0); Mean Corpuscular Volume 100.4 fL (80.0-100.0); Mean Platelet Volume 7.9 fL (7.0-11.0); Mono # (Auto) 0.7 th/mm3 (0.0-0.9); Mono % (Auto) 9.2 % (0.0-8.0); Neut # (Auto) 5.3 th/mm3 (1.8-7.7); Neut % (Auto) 68.9 % (16.0-70.0); Platelet Count 200 th/mm3 (150-450); Red Blood Count 2.77 mil/mm3 (4.00-5.30); Red Cell Distribution Width 15.5 % (11.6-17.2); White Blood Count 7.6 th/mm3 (4.0-11.0)
--- NOTE | 2018-07-30 07:51 | P.PN ---
Subjective Interval history: Patient denies any shortness of breath, chest pain, abdominal pain. She likely will be going home today. Physical Exam Vital signs: Vital Signs 07/29/18 09:19 07/29/18 12:45 07/29/18 13:00 Temperature 98.2 F 97.5 F L Pulse Rate 57 L 54 L 51 L Respiratory Rate 18 14 16 Blood Pressure 156/77 H 139/63 126/48 L Pulse Oximetry 95 98 07/29/18 13:15 07/29/18 13:30 07/29/18 13:45 Temperature Pulse Rate 52 L 53 L 54 L Respiratory Rate 16 16 16 Blood Pressure 140/52 L 125/45 L 104/54 L Pulse Oximetry 100 100 98 07/29/18 14:00 07/29/18 14:15 07/29/18 14:30 Temperature 98.3 F Pulse Rate 54 L 55 L 52 L Respiratory Rate 16 16 16 Blood Pressure 118/54 L 110/58 L 112/58 L Pulse Oximetry 98 97 98 07/29/18 18:33 07/29/18 20:00 07/30/18 00:00 Temperature 99.5 F 99.6 F Pulse Rate 70 64 Respiratory Rate 18 18 17 Blood Pressure 137/56 L 122/56 L Pulse Oximetry 98 95 Intake & Output 07/29/18 07/30/18 07/30/18 18:59 06:59 18:59 Intake Total 980 / 980 240 / 240 Output Total 130 / 130 165 / 165 Balance 850 / 850 75 / 75 Weight 80.739 kg Intake: IV 50 / 50 Ancef 2 GM Premix Inj 2 gm In 50 / 50 50 ml @ 100 mls/hr IV.SIG [facility] Rx#:[id number] Oral 480 / 480 240 / 240 Anesthesia Amount 450 / 450 Output: Wound Drainage 130 / 130 165 / 165 Left Breast 130 / 130 165 / 165 Other: # Voids 1 Date of Last Bowel Movement 07/28/18 # Bowel Movements 0 Weight On Admission 80.739 kg Narrative: This is a pleasant [] in no distress. HEENT: Pupils equal, EOMs intact, sclera nonicteric, mouth without lesions, TMs intact, nose without lesions. Upper and lower dentures. Neck: No JVD, neck is supple, no carotid bruit Heart: Regular rate and rhythm. I hear a grade 1-2/6 systolic murmur in the aortic region Lungs: Clear to auscultation Abdomen: Soft, nontender, no masses, no organomegaly Extremities: No edema, pulses palpated, no calf tenderness Skin: Without lesions or rash Neuro: Alert, oriented, normal motor exam, sensation intact, cranial nerves intact Results - Labs CBC & Chem 7: 07/30/18 07:32 07/30/18 07:32 Laboratory Results - last 24 hr 07/29/18 07/29/18 07/29/18 09:36 12:48 17:34 POC Glucose 138 H 124 H 96 07/30/18 07/30/18 07/30/18 00:15 06:08 07:09 POC Glucose 119 H 74 100 Assessment and Plan - Assessment (1) Cancer of left breast Code(s): C50.912 - Malignant neoplasm of unspecified site of left female breast Status: Chronic (2) Status post left mastectomy Code(s): Z90.12 - Acquired absence of left breast and nipple Status: Acute (3) Hypertension Code(s): I10 - Essential (primary) hypertension Status: Chronic (4) Type 2 diabetes mellitus Code(s): E11.9 - Type 2 diabetes mellitus without complications Status: Chronic (5) End stage chronic kidney disease Code(s): N18.6 - End stage renal disease Status: Chronic (6) Dialysis patient Code(s): Z99.2 - Dependence on renal dialysis Status: Chronic (7) Diverticulosis of colon Code(s): K57.30 - Diverticulosis of large intestine without perforation or abscess without bleeding Status: Acute (8) Heart murmur Code(s): R01.1 - Cardiac murmur, unspecified Status: Suspected - Plan She is medically stable and her blood sugars have been controlled. Her blood pressure is stable as well. She states Dr. Nunez told her she would likely be going home this morning. She is medically stable. She is due for her next dialysis on Wednesday. I did notice a heart murmur today and aortic region and I talked with the patient about this. I suggested that she see her primary care physician (Dr. Osorio) as an outpatient and have him evaluate this further with a possible 2D echocardiogram. No further recommendations at this time.
[2018-07-30 08:10] LABS: Potassium 5.4 meq/L (3.5-5.1)
[2018-07-30 08:17] LABS: Calcium 8.3 mg/dL (8.5-10.1)
[2018-07-30 08:18] LABS: Carbon Dioxide 27.1 meq/L (21.0-32.0)
[2018-07-30] MEDS: Calcium Acetate 667 MG Capsule PO SCH ×2 (08:35→12:04)
[2018-07-30] MEDS: Metoprolol Tartrate 100 MG Tablet PO SCH (08:37)
[2018-07-30] MEDS ORDERED: amLODIPine 10 MG Tablet PO SCH (09:00)
[2018-07-30] MEDS: Timolol 0.5% Drops 5 ML Bottle EACH EYE SCH (09:14)
[2018-07-30 09:29] VITALS: BP 116/54; PULSE 60; RESP 15; TEMP 98.1; O2SAT 97
--- NOTE | 2018-07-30 11:19 | P.PNGS ---
Subjective Patient reports: no new complaints (No nause. Pain controlled with oral analgesics.) Physical Exam Vital signs: Vital Signs 07/29/18 12:45 07/29/18 13:00 07/29/18 13:15 Temperature 97.5 F L Pulse Rate 54 L 51 L 52 L Respiratory Rate 14 16 16 Blood Pressure 139/63 126/48 L 140/52 L Pulse Oximetry 95 98 100 07/29/18 13:30 07/29/18 13:45 07/29/18 14:00 Temperature Pulse Rate 53 L 54 L 54 L Respiratory Rate 16 16 16 Blood Pressure 125/45 L 104/54 L 118/54 L Pulse Oximetry 100 98 98 07/29/18 14:15 07/29/18 14:30 07/29/18 18:33 Temperature 98.3 F Pulse Rate 55 L 52 L Respiratory Rate 16 16 18 Blood Pressure 110/58 L 112/58 L Pulse Oximetry 97 98 07/29/18 20:00 07/30/18 00:00 07/30/18 08:00 Temperature 99.5 F 99.6 F 98.1 F Pulse Rate 70 64 60 Respiratory Rate 18 17 15 Blood Pressure 137/56 L 122/56 L 116/54 L Pulse Oximetry 98 95 97 Intake & Output 07/29/18 07/30/18 07/30/18 18:59 06:59 18:59 Intake Total 980 / 980 240 / 240 Output Total 130 / 130 165 / 165 Balance 850 / 850 75 / 75 Weight 80.739 kg Intake: IV 50 / 50 Ancef 2 GM Premix Inj 2 gm In 50 / 50 50 ml @ 100 mls/hr IV.SIG [facility] Rx#:[id number] Oral 480 / 480 240 / 240 Anesthesia Amount 450 / 450 Output: Wound Drainage 130 / 130 165 / 165 Left Breast 130 / 130 165 / 165 Other: # Voids 1 Date of Last Bowel Movement 07/28/18 # Bowel Movements 0 Weight On Admission 80.739 kg - Constitutional no acute distress - Routine Skin Exam Comments: Left mastectomy flaps clean and dry. No infection, seroma or lymphedema. Results - Labs 07/30/18 07:32 07/30/18 07:32 Laboratory Results - last 24 hr 07/29/18 07/29/18 07/30/18 12:48 17:34 00:15 CBC w Diff WBC RBC Hgb Hct MCV MCH MCHC RDW Plt Count MPV Neut % (Auto) Lymph % (Auto) [place] % (Auto) Eos % (Auto) Baso % (Auto) Neut # (Auto) Lymph # (Auto) [place] # (Auto) Eos # (Auto) Baso # (Auto) WBC Differential Differential Comment Sodium Potassium Chloride Carbon Dioxide Anion Gap BUN Creatinine Estimated GFR POC Glucose 124 H 96 119 H Random Glucose Calcium 07/30/18 07/30/18 07/30/18 06:08 07:09 07:32 CBC w Diff Auto diff final WBC 7.6 RBC 2.77 L Hgb 8.9 L Hct 27.9 L MCV 100.4 H MCH 32.0 MCHC 31.9 L RDW 15.5 Plt Count 200 MPV 7.9 Neut % (Auto) 68.9 Lymph % (Auto) 20.0 [place] % (Auto) 9.2 H Eos % (Auto) 1.6 Baso % (Auto) 0.3 Neut # (Auto) 5.3 Lymph # (Auto) 1.5 [place] # (Auto) 0.7 Eos # (Auto) 0.1 Baso # (Auto) 0.0 WBC Differential . Differential Comment . Sodium Potassium Chloride Carbon Dioxide Anion Gap BUN Creatinine Estimated GFR POC Glucose 74 100 Random Glucose Calcium 07/30/18 07:32 CBC w Diff WBC RBC Hgb Hct MCV MCH MCHC RDW Plt Count MPV Neut % (Auto) Lymph % (Auto) [place] % (Auto) Eos % (Auto) Baso % (Auto) Neut # (Auto) Lymph # (Auto) [place] # (Auto) Eos # (Auto) Baso # (Auto) WBC Differential Differential Comment Sodium 139 Potassium 5.4 H Chloride 104 Carbon Dioxide 27.1 Anion Gap 8 BUN 51 H Creatinine 7.20 H Estimated GFR 7 L POC Glucose Random Glucose 92 Calcium 8.3 L Assessment and Plan - Assessment (1) Cancer of left breast Code(s): C50.912 - Malignant neoplasm of unspecified site of left female breast Status: Chronic (2) Status post left mastectomy Code(s): Z90.12 - Acquired absence of left breast and nipple Status: Acute Plan: Stable from surgical standpoint. Clear for discharge with home health to assist with drain care. - Plan Discharge home after medical clearance. Code Status: Full. - Attending Attestation Stable post surgery. Clear for discharge. (1) Cancer of left breast Qualifiers: Breast location: central portion of breast
[2018-07-30] MEDS ORDERED: [UNRECOGNIZED DRUG - OTHER] SUBDERMAL SCH (11:30)
[2018-07-30] MEDS ORDERED: INSULIN DETEMIR SUBDERMAL SCH (11:30)
[2018-07-30] MEDS ORDERED: [UNRECOGNIZED DRUG - OTHER] SUBDERMAL SCH (11:30)
[2018-07-30] MEDS ORDERED: INSULIN ASPART SUBDERMAL SCH (11:30)
--- NOTE | 2018-07-30 11:42 | P.DCO ---
- Diagnosis (1) Status post left mastectomy Status: Acute (2) Cancer of left breast Status: Chronic (3) Dialysis patient Status: Chronic - Home Health Nursing Order: Wound care and dressing changes - Case Management Consult Case Management Consult-Home Health: Yes - Certification I have seen patient Vickie Henry on 07/30/18. My clinical findings support the need for the requested home health care services because: Deconditioned with increased weakness, Limited ability to care for self I certify that my clinical findings support that this patient is homebound because: Unsafe to leave home unassisted (2) Cancer of left breast Qualifiers: Breast location: central portion of breast
[2018-07-30] MEDS ORDERED: Insulin NovoLOG Aspart Correctional Sugar Inj SQ SCH (18:00)
[2018-07-31] MEDS ORDERED: DIALYVITE PO SCH (09:00)
== END 2018-07-30 13:42 | disposition home health service (06) ==
LOC: PHSDC 08:11 → PH3 08:11
PROVIDERS: ADMIT Surgery; ATTEND Surgery